=== PATIENT | male | born 1940 | race Caucasian/White ===

== ENCOUNTER → 2016-11-12 | Outpatient (CLI) | payer MEDICARE, OTHER ==
[2016-11-12 11:56] LABS: ABSOLUTE EOSINOPHILS # (AUTO) 0.2 10^3/uL (0.0-0.6); ABSOLUTE LYMPHOCYTES (AUTO) 2.3 10^3/uL (0.5-4.7); ABSOLUTE MONOCYTES (AUTO) 0.7 10^3/uL (0.1-1.4); ABSOLUTE NEUT (AUTO) 5.4 10^3/uL (1.7-8.2); BASOPHILS % (AUTO) 0.5 % (0-2); EOSINOPHILS % (AUTO) 2.2 % (0-6); HEMATOCRIT 44.8 % (37.9-51.0); HEMOGLOBIN 15.1 g/dL (13.5-17.0); HGB HCT DIFFERENCE 0.5; LYMPHOCYTES % (AUTO) 26.7 % (13-45); MEAN CORPUSCULAR HEMOGLOBIN 35.5 pg (27.0-33.4); MEAN CORPUSCULAR HGB CONC 33.6 g/dL (32.0-36.0); MEAN CORPUSCULAR VOLUME 106 fl (80-97); MONOCYTES % (AUTO) 8.3 % (3-13); RED BLOOD COUNT 4.25 10^6/uL (4.35-5.55); SEGMENTED NEUTROPHILS % (AUTO) 62.3 % (42-78); WHITE BLOOD COUNT 8.6 10^3/uL (4.0-10.5)
[2016-11-12 12:08] LABS: APPEARANCE,URINE CLEAR; BILIRUBIN,URINE NEGATIVE (NEGATIVE); GLUCOSE, URINE NEGATIVE (NEGATIVE); KETONES,URINE NEGATIVE (NEGATIVE); LEUKOCYTE ESTERASE,URINE NEGATIVE (NEGATIVE); NITRITE,URINE NEGATIVE (NEGATIVE); PROTEIN,URINE NEGATIVE (NEGATIVE); URINE SPECIFIC GRAVITY 1.008; UROBILINOGEN,URINE NEGATIVE mg/dL (<2.0)
[2016-11-12 12:20] LABS: ANION GAP 14 (5-19); BLOOD UREA NITROGEN 20 mg/dL (7-20); CALCIUM 9.4 mg/dL (8.4-10.2); CARBON DIOXIDE 29 mmol/L (22-30); CHLORIDE 98 mmol/L (98-107); CREATININE RESULT 1.01 mg/dL (0.52-1.25); GLUCOSE 105 mg/dL (75-110); POTASSIUM 4.2 mmol/L (3.6-5.0)
--- NOTE | 2016-11-12 12:45 | EKG REPORT ---
SEVERITY:- ABNORMAL ECG - ATRIAL FIBRILLATION : Confirmed by: Hal Carr MD 12-Nov-2016 12:44:46
== END ==
LOC: OD 10:53
PROVIDERS: ATTEND Orthopaedic Surgery
DX: Z01.810 Encounter for preprocedural cardiovascular examination (principal); Z01.812 Encounter for preprocedural laboratory examination; Z01.818 Encounter for other preprocedural examination
CPT/HCPCS: 36415; 71020; 80048; 81001; 85025; 93005; 93010

== ENCOUNTER 2016-12-02 09:46 | Day surgery (SDC) | payer MEDICARE, OTHER ==
[~2016-12-02 09:46] MED LIST: CEFAZOLIN 2 GM/D5W RTU 2 GM/50 ML RTUPB IV PRN; RINGERS SOLUTION,LACTATED 1,000 ML IV PRN
[2016-12-02] MEDS ORDERED: EPINEPHRINE INJ/PF 1 MG/1 ML AMPULE ONE ×2 (09:53→15:29)
[2016-12-02] MEDS ORDERED: BUPIVACAINE HCL 0.25 % INJ/PF (2.5 MG/1 ML) 30 ML VIAL ONE (09:53)
[2016-12-02 10:46] LABS: ABSOLUTE EOSINOPHILS # (AUTO) 0.2 10^3/uL (0.0-0.6); ABSOLUTE LYMPHOCYTES (AUTO) 1.9 10^3/uL (0.5-4.7); ABSOLUTE MONOCYTES (AUTO) 0.6 10^3/uL (0.1-1.4); ABSOLUTE NEUT (AUTO) 4.7 10^3/uL (1.7-8.2); BASOPHILS % (AUTO) 0.5 % (0-2); EOSINOPHILS % (AUTO) 2.5 % (0-6); HEMATOCRIT 41.9 % (37.9-51.0); HEMOGLOBIN 13.8 g/dL (13.5-17.0); HGB HCT DIFFERENCE -0.5; MEAN CORPUSCULAR HEMOGLOBIN 34.2 pg (27.0-33.4); MEAN CORPUSCULAR VOLUME 104 fl (80-97); MONOCYTES % (AUTO) 7.9 % (3-13); RED BLOOD COUNT 4.04 10^6/uL (4.35-5.55); RED CELL DISTRIBUTION WIDTH 14.2 % (11.5-14.0); SEGMENTED NEUTROPHILS % (AUTO) 63.1 % (42-78); WHITE BLOOD COUNT 7.5 10^3/uL (4.0-10.5)
[2016-12-02 11:14] LABS: POTASSIUM 3.8 mmol/L (3.6-5.0)
[2016-12-02] MEDS ORDERED: ONDANSETRON HCL INJ/PF 4 MG/2 ML SDV ONE (11:40)
[2016-12-02] MEDS ORDERED: SUCCINYLCHOLINE CHLORIDE INJ 200 MG/10 ML VIAL ONE (11:40)
[2016-12-02] MEDS ORDERED: DEXAMETHASONE SOD PHOSPHATE INJ 4 MG/1 ML VIAL ONE (11:40)
[2016-12-02] MEDS ORDERED: LIDOCAINE 2% INJ-PF (20 MG/ML) 10 ML AMPUL ONE (11:40)
[2016-12-02] MEDS ORDERED: PHENYLEPHRINE HCL INJ/PF 10 MG/1 ML SDV ONE (11:40)
[2016-12-02] MEDS ORDERED: MIDAZOLAM 2 MG/2 ML INJ ONE (14:35)
[2016-12-02] MEDS ORDERED: FENTANYL CITRATE INJ/PF 250 MCG/5 ML AMPULE ONE (14:35)
[2016-12-02] MEDS ORDERED: PROPOFOL INJ 200 MG/20 ML VIAL IV ONE (14:36)
[2016-12-02] MEDS ORDERED: ACETAMINOPHEN 100 ML IV ONE (14:36)
[2016-12-02] MEDS ORDERED: ALBUTEROL SULFATE 0.083% NEB 2.5 MG/3 ML AMPUL NEB ONE (14:40)
[2016-12-02] MEDS ORDERED: EPHEDRINE SULFATE INJ 50 MG/1 ML AMPULE ONE (15:17)
[2016-12-02] MEDS ORDERED: FENTANYL CITRATE INJ/PF 100 MCG/2 ML AMPUL IV PRN ×3 (15:46)
[2016-12-02] MEDS ORDERED: PROMETHAZINE HCL INJ 25 MG/1 ML VIAL IV PRN (15:46)
[2016-12-02] MEDS ORDERED: ONDANSETRON HCL INJ/PF 4 MG/2 ML SDV IV PRN (15:46)
[2016-12-02] MEDS ORDERED: DIPHENHYDRAMINE HCL 50 MG/ML VIAL IV PRN (15:46)
--- NOTE | 2016-12-02 17:22 | Operative Report ---
Operative Report DATE OF SURGERY: 12/02/16 PREOPERATIVE DIAGNOSIS: Right shoulder high-grade rotator cuff tear POSTOPERATIVE DIAGNOSIS: Same OPERATION: Right shoulder arthroscopic rotator cuff repair SURGEON: JAYANT PÉREZ ANESTHESIA: GA TISSUE REMOVED OR ALTERED: None COMPLICATIONS: None ESTIMATED BLOOD LOSS: 20 mL INTRAOPERATIVE FINDINGS: As above PROCEDURE: IMPLANTS: 4.75 mm swivel lock 2, fiber tape DESCRIPTION OF PROCEDURE: Patient was brought to the operating room placed in supine position. After successfully induced and intubated the patient patient was placed in the beachchair position the head and endotracheal tube was secured appropriately. The right shoulder was prepped and draped in a normal surgical fashion. A timeout was done identifying the right shoulder as the correct site. After inflating the glenohumeral joint with sterile saline solution an 11 blade was used to establish the posterior portal. The arthroscope was introduced and return of fluid was seen showing that we successfully penetrated the glenohumeral joint. With the use of spinal needle we're able to claudia the anterior portal and using an 11 blade able to establish anterior portal. A cannula was introduced through the anterior portal. At this point diagnostic scope was done. Patient had already had a operative tenotomy of his long head of the biceps tendon. There is a small stump that I proceeded to debride and resect. I used a 4.0 mm shaver and electrocautery to do this portion. I turned my attention to the rotator cuff which showed a high- grade tear. I debrided part of the with the shaver. I placed a spinal needle through the hair and felt a pulling which I then captured to my anterior portal. This allowed me to identify the tear in the subacromial space which was my plan to go next.I then redirected my scope into the subacromial space. A lateral portal was established with a 11 blade. 4.0mm shaver was introduced and was used to complete the tear and bur the bone for preparation of anchor placement. Once I was satisfied with the preparation a percutaneous incision was then just adjacent to the acromion on the lateral aspect. Through this percutaneous hole the awl was used to prepare the hole for an anchor. Tell was percutaneously screwed flushed with the bone just adjacent to the articular margin. Sutures and fiber tape were passed through the anterior portal for proper suture management. With the use of the scorpion and I proceeded to pass the sutures and fiber tape through the rotator cuff tendon. With proper suture management was able to pass the strands either through percutaneous hole or the anterior portal. Once I was satisfied with placement of all my sutures I then proceeded to do my arthroscopic knots with the sutures that were within the swivel lock. At this point the strands and the fiber tape were used to do our lateral row. Bicomposite show out was used and the lateral aspect of the humerus was then cleaned off with a shaver and electrocautery. Once identified once I was replacement I proceeded to use my awl to do my hole. This this point the sutures and fiber tape were adequately tensioned and swivel lock inserted, screwing flush with the bone thus far and securing and increasing the footprint of the rotator cuff repair. Remaining strands were cut with the arthroscopic cutter. Final pictures were taking showing my repair. At this point fluid from the shoulder was removed camera and instruments were all removed. I proceeded to close my portal sites with 3-0 nylon. Xeroform 4 x 4 dressing followed by ABDs pads and Medipore tape was applied. Patient was placed in a sling and returned to supine position where he was successfully extubated and taken to PACU in stable condition.
[2016-12-02] MEDS ORDERED: OXYCODONE-ACETAMINOPHEN 5-325 MG TABLET PO PRN ×2 (17:24)
--- NOTE | 2016-12-02 17:24 | PDOC DISCHARGE SUMMARY ---
Discharge Summary (SDC) - Discharge Final Diagnosis: Right shoulder arthroscopic rotator cuff repair Date of Surgery: 12/02/16 Discharge Date: 12/02/16 Condition: Good Treatment or Instructions: Patient is instructed to follow up in 10-14 days. Patient instructed to remove dressing in 4 days then can shower and apply Band- Aids as needed. Patient to wear sling for comfort but okay to remove for shower and pendulum exercises. Pendulum exercises are instructed to be done 3 times a day ideally with breakfast, lunch, dinners and showers. Patient instructed to call if there is any signs of redness or drainage fevers or chills. Prescriptions: Oxycodone HCl/Acetaminophen [Percocet 5-325 mg Tablet] 1 - 2 tab PO ASDIR PRN # 40 tablet PRN Reason: Discharge Diet: As Tolerated Respiratory Treatments at Home: Deep Breathing/Coughing Discharge Activity: No Lifting/Push/Pulling, Walk Frequently Home Care Assistance: None Needed Report the Following to Your Physician Immediately: Shortness of Breath, Vomiting, Increase in Pain, Fever over 101 Degrees, Unusual Bleeding, Redness, Swelling, Warmth, Increased Soreness, Drainage-Yellow, Drainage-Green, Drainage- Foul Smelling, Visual Disturbance, Seizure
[2016-12-02] MEDS ORDERED: IBUPROFEN INJ 800 MG/8 ML VIAL IV ONE (17:32)
[2016-12-02] MEDS: HYDROMORPHONE HCL INJ/PF 2 MG/ML AMPULE ONE ×2 (17:35→17:50)
[2016-12-02 19:38] VITALS: BP 113/71
== END 2016-12-02 21:33 | disposition home or self-care (01) ==
LOC: OROUT 09:46 → 5 18:15 → OROUT 21:33
PROVIDERS: ATTEND Orthopaedic Surgery
PROC: 0LM14ZZ Reattachment of Right Shoulder Tendon, Percutaneous Endoscopic Approach (ICD-10-PCS; principal; 2016-12-02 11:45)
DX: M75.111 Incomplete rotator cuff tear or rupture of right shoulder, not specified as traumatic (principal); E11.9 Type 2 diabetes mellitus without complications; E78.5 Hyperlipidemia, unspecified; E78.00 Pure hypercholesterolemia, unspecified; I10 Essential (primary) hypertension; Z79.899 Other long term (current) drug therapy; Z79.82 Long term (current) use of aspirin; Z79.84 Long term (current) use of oral hypoglycemic drugs; Z79.51 Long term (current) use of inhaled steroids
CPT/HCPCS: 86900; 86901; 36415; 86850; 82947; 84132; 85025; 29827; C1713; J2250; J1100; J3490 ×2; J0171; J3010; A9270 ×2; J1170; J2370; J0330; J2405; J2704; J0690; J0131; J1741; 1630

== ENCOUNTER → 2018-04-06 | Outpatient (CLI) | payer MEDICARE, OTHER ==
[2018-04-06 11:24] LABS: ALANINE AMINOTRANSFERASE 26 U/L (21-72); ALBUMIN 3.8 g/dL (3.5-5.0); ALKALINE PHOSPHATASE 71 U/L (38-126); ANION GAP 8 (5-19); ASPARTATE AMINO TRANSFERASE 23 U/L (17-59); BILIRUBIN,DIRECT 0.5 mg/dL (0.0-0.4); BILIRUBIN,TOTAL 0.8 mg/dL (0.2-1.3); BLOOD UREA NITROGEN 18 mg/dL (7-20); CARBON DIOXIDE 31 mmol/L (22-30); CHLORIDE 102 mmol/L (98-107); CHOLESTEROL 97.65 mg/dL (0-200); GLUCOSE 109 mg/dL (75-110); SODIUM 140.8 mmol/L (137-145); TOTAL PROTEIN 6.6 g/dL (6.3-8.2); TRIGLYCERIDES 86 mg/dL (<150); URIC ACID 8.3 mg/dL (3.5-8.5)
[2018-04-06 11:35] LABS: DIRECT LDL 32 mg/dL (<100)
[2018-04-07 15:34] LABS: PROSTATE SPECIFIC ANTIGEN 1.7 ng/mL (0.0-4.0); PSA % FREE 27.1 % (.); PSA FREE 0.46 ng/mL
== END ==
LOC: OD 09:38
PROVIDERS: ATTEND Family Medicine
DX: E11.9 Type 2 diabetes mellitus without complications (principal); E78.5 Hyperlipidemia, unspecified; E53.8 Deficiency of other specified B group vitamins; E55.9 Vitamin D deficiency, unspecified; R53.83 Other fatigue; Z12.5 Encounter for screening for malignant neoplasm of prostate
CPT/HCPCS: 36415; 80053; 80061; 82607; 83880; 84154; 84550

== ENCOUNTER → 2018-10-24 | Outpatient (CLI) | payer MEDICARE, OTHER ==
--- NOTE | 2018-10-24 08:35 | RADIOLOGY REPORT (SQ) ---
EXAM DESCRIPTION: U/S RETROPERITON LTD COMPLETED DATE/TIME: 10/24/2018 8:03 am REASON FOR STUDY: AAA (I71.4) I71.4 ABDOMINAL AORTIC ANEURYSM, WITHOUT RUPTURE M25.561 PAIN IN RIG HT KNEE COMPARISON: None. TECHNIQUE: Static and dynamic grayscale images acquired of the aorta and stored on PACs. Selected co filomena Doppler and spectral images recorded. LIMITATIONS: Portions obscured by overlying bowel gas. FINDINGS: AORTIC CALIBER MAXIMAL PROXIMAL: 2.9 cm. MID: Partially obscured. 3.0 cm. DISTAL: 2.1 cm. ILIAC DIAMETER RIGHT: Obscured by bowel gas. LEFT: Obscured by bowel gas. OTHER: No other significant finding. IMPRESSION: MILD ANEURYSMAL DILATION, MEASURING 3.0 CM. COMMENT: Aortic aneurysm imaging followup: 3.0-3.4 CM EVERY 3 YEARS *Based upon the Society for Vascular Surgery Guidelines: J Vasc Surg. 2009 Oct;50(4 Suppl):S2-49 *For aortas of maximum diameter of 2.6-2.9 cm meeting the criteria for AAA (?1.5 x proximal normal se gment) TECHNICAL DOCUMENTATION: JOB ID: [id number] [employer]- All Rights Reserved Reading location - IP/workstation name: [email or web address]
--- NOTE | 2018-10-24 17:05 | RADIOLOGY REPORT (SQ) ---
EXAM DESCRIPTION: MRI RT LOWER JOINT WITHOUT COMPLETED DATE/TIME: 10/24/2018 9:01 am REASON FOR STUDY: PAIN IN RIGHT KNEE (M25.561) I71.4 ABDOMINAL AORTIC ANEURYSM, WITHOUT RUPTURE M25 .561 PAIN IN RIGHT KNEE COMPARISON: None. TECHNIQUE: Rightknee images acquired and stored on PACS. Multiplanar images include fat sensitive s equences as T1, water sensitive sequences as FST2 or STIR, cartilage sensitive sequences as FSPD, and gradient echo sequences. LIMITATIONS: None. FINDINGS: JOINT AND BURSAE: Joint effusion. 5.3 cm popliteal cyst. BONE CORTEX AND MARROW: No alteration of signal to suggest marrow replacement. No worrisome bone lesi ons. No occult fracture. ACL: Intact. No degeneration or ganglion cyst. PCL: Intact. MCL: Intact. No periligamentous edema or fluid. LCL: Intact. No periligamentous edema or fluid. MEDIAL MENISCUS: Complex tear with a large flap tear posteriorly extending to a horizontal tear. No subluxation. LATERAL MENISCUS: Complex tear. There is a bucket-handle component with meniscus flipped anteriorly. There is also a posterior horn flap tear. MEDIAL COMPARTMENT: Cartilage preserved. No bone bruises or reactive marrow edema. No osteophytes. LATERAL COMPARTMENT: Cartilage preserved. No bone bruises or reactive marrow edema. No osteophytes. PATELLA: Cartilaginous loss most prominent lateral facet of the patella. There patellofemoral osteop hytes with subchondral cysts of the non weight-bearing surface of the lateral femoral condyles. Cart ilaginous loss of the trochlear cartilage. EXTENSOR MECHANISM: Intact. Quadriceps and patella tendons normal. SOFT TISSUES: Adjacent muscles and subcutaneous tissues normal. Normal flow void in popliteal artery and vein. OTHER: No other significant finding. IMPRESSION: Complex tear medial meniscus with a large flap tear extending to horizontal tear. Complex tear lateral meniscus with a bucket-handle component with meniscus flipped anteriorly. There is also a posterior 1 flap tear. Patellofemoral degenerative changes. Joint effusion and popliteal cyst. TECHNICAL DOCUMENTATION: JOB ID: [id number]- All Rights Reserved Reading location - IP/workstation name: [email or web address]
== END ==
LOC: RAD 06:49
PROVIDERS: ATTEND Orthopaedic Surgery
DX: M25.561 Pain in right knee (principal); I71.4 Abdominal aortic aneurysm, without rupture
CPT/HCPCS: 76775

== ENCOUNTER 2019-01-23 06:33 | Inpatient (IN) | payer MEDICARE, OTHER ==
--- NOTE | 2019-01-23 07:13 | ER Document Report ---
ED General - General Chief Complaint: Fall Stated Complaint: FALL Time Seen by Provider: 01/23/19 07:13 Notes: Patient is a 78-year-old male with atrial fibrillation, hypertension, diabetes mellitus that presents to the emergency department for chief complaint of lightheadedness, chills and dyspnea on exertion. Patient states he had a fall t his past Tuesday while he was visiting his at a long term facility, he states that that time he got lightheaded, lost his balance and fell he states he did hit his head, but denies loss of consciousness. He states he was feeling fine, he states that he bruises quite a bit, but otherwise is feeling okay, but then started getting more short of breath, having a hard time catching his breath and is felt lightheaded on and off since then and is concerned something is wrong so he came to the emergency department to be evaluated. He reports has been taking off his home medications as directed, he does not believe he is on a blood thinner. He is not entirely aware that he had atrial fibrillation. He denies having any pain at this time. Past Medical History: Atrial fibrillation, hypertension, diabetes mellitus, osteoarthritis Past Surgical History: Denies recent or pertinent surgical history Social History: Denies current tobacco, alcohol or illicit drug use. Family History: Reviewed and noncontributory for presenting illness Allergies: Reviewed, see documented allergy list. REVIEW OF SYSTEMS: Other than noted above, the 12 point review of systems was reviewed with the patient and were negative, all pertinent findings are included in the HPI. PHYSICAL EXAMINATION: Vital signs reviewed, nursing noted reviewed. GENERAL: Well-appearing, well-nourished and in no acute distress. HEAD: Periorbital ecchymosis and mild edema, around the right eye, no step-off or deformity or tenderness to palpation. EYES: extraocular movements intact, sclera anicteric, conjunctiva are normal. PERRLA, no conjunctival injection. ENT: nares patent, oropharynx clear without exudates. Moist mucous membranes. NECK: Normal range of motion, supple without lymphadenopathy LUNGS: Breath sounds clear to auscultation bilaterally and equal. No wheezes rales or rhonchi. HEART: Heart rate tachycardic, irregular rhythm ABDOMEN: Soft, nontender, normoactive bowel sounds. No rebound, guarding, or rigidity. No masses appreciated. EXTREMITIES: Nontender, good range of motion, no pitting or edema. NEUROLOGICAL: No focal neurological deficits. Moves all extremities spontan eously Motor and sensory grossly intact on exam. PSYCH: Normal mood, normal affect. SKIN: Warm, Dry, normal turgor, no rashes or lesions noted on exposed skin TRAVEL OUTSIDE OF THE [place] IN LAST 30 DAYS: No - Related Data Allergies/Adverse Reactions: No Known Drug Allergies Allergy (Verified 05/03/11 01:47) Past Medical History - Social History Smoking Status: Never Smoker Family History: Reviewed & Not Pertinent - Past Medical History Cardiac Medical History: Reports: Hx Hypertension - meds x 20 yrs Denies: Hx Coronary Artery Disease, Hx Heart Attack Pulmonary Medical History: Reports: Hx COPD - see cxr, Hx Pneumonia - 2010 Denies: Hx Asthma, Hx Bronchitis Neurological Medical History: Denies: Hx Cerebrovascular Accident, Hx Seizures Musculoskeletal Medical History: 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,gout - Immunizations Hx Diphtheria, Pertussis, Tetanus Vaccination: Yes Hx Pneumococcal Vaccination: 07/11/10 Physical Exam - Vital signs Vitals: Temp Pulse Resp BP Pulse Ox 97.4 F 111 H 20 117/79 95 01/23/19 06:51 01/23/19 06:51 01/23/19 06:51 01/23/19 06:51 01/23/19 06:51 Course - Re-evaluation Re-evalutation: Patient seen and examined vital signs reviewed. Laboratory data and imaging were ordered as appropriate for the patient's presenting symptoms and complaint, with consideration of any critical or life threatening conditions that may be associated with their obtained history and exam as noted above. Patient was treated with 2 L of IV fluids, and IV calcium gluconate, 3 g total Results were reviewed when available and demonstrated significant hypocalcemia, and an elevated lactic acid, mild leukocytosis The patient was re-evaluated and was improved, blood pressure was improving, do not feel that the patient is septic, despite having leukocytosis and elevated l actic acid, his UA was negative for signs of infection, chest x-ray negative as well. Evaluation was most consistent with dehydration, causing elevated lactic acid, possibly causing hypocalcemia as well due to malnutrition, TSH was ordered as well as free T4, as the patient's TSH was noted to be somewhat low, but not undetectable, phosphorus was normal. Results were discussed with the patient at this point after careful consideration I feel that that patient should be admitted to the hospital. This was discussed with the patient that it is in the best interest for their care to be admitted for further evaluation and management. Patient agreed with this plan of care. A call was placed to the admitting physician, Dr. Simon who graciously accepted the patient onto their service. *Note is created using voice recognition software and may contain spelling, syntax or grammatical errors. Laboratory 01/23/19 01/23/19 01/23/19 07:59 07:59 07:59 WBC 13.7 H RBC 3.98 L Hgb 13.9 Hct 41.2 MCV 103 H MCH 34.9 H MCHC 33.8 RDW 15.3 H Plt Count 133 L Seg Neutrophils % 86.1 H Lymphocytes % 7.3 L Monocytes % 6.1 Eosinophils % 0.4 Basophils % 0.1 Absolute Neutrophils 11.8 H Absolute Lymphocytes 1.0 Absolute Monocytes 0.8 Absolute Eosinophils 0.1 Absolute Basophils 0.0 PT 16.9 H INR 1.36 VBG pH VBG pCO2 VBG HCO3 VBG Base Excess Sodium 138.1 Potassium 3.6 Chloride 93 L Carbon Dioxide 32 H Anion Gap 13 BUN 20 Creatinine 1.46 H Est GFR ( Amer) 56 L Est GFR (Non-Af Amer) 46 L Glucose 104 POC Glucose Lactic Acid Calcium 6.1 L* Phosphorus Total Bilirubin 1.5 H Direct Bilirubin 0.3 Neonat Total Bilirubin Not Reportable Neonat Direct Bilirubin Not Reportable Neonat Indirect Bili Not Reportable AST 244 H ALT 72 Alkaline Phosphatase 67 Troponin I Total Protein 6.4 Albumin 3.8 TSH Free T4 Free T3 pg/mL PTH Intact Urine Color Urine Appearance Urine pH Ur Specific Boles Urine Protein Urine Glucose (UA) Urine Ketones Urine Blood Urine Nitrite Urine Bilirubin Urine Urobilinogen Ur Leukocyte Esterase Urine WBC (Auto) Urine RBC (Auto) U Hyaline Cast (Auto) Squamous Epi Cells Auto Urine Mucus (Auto) Urine Ascorbic Acid 01/23/19 01/23/19 01/23/19 07:59 07:59 07:59 WBC RBC Hgb Hct MCV MCH MCHC RDW Plt Count Seg Neutrophils % Lymphocytes % Monocytes % Eosinophils % Basophils % Absolute Neutrophils Absolute Lymphocytes Absolute Monocytes Absolute Eosinophils Absolute Basophils PT INR VBG pH 7.43 H VBG pCO2 45.7 VBG HCO3 29.4 VBG Base Excess 4.3 Sodium Potassium Chloride Carbon Dioxide Anion Gap BUN Creatinine Est GFR ( Amer) Est GFR (Non-Af Amer) Glucose POC Glucose Lactic Acid 4.3 H Calcium Phosphorus Total Bilirubin Direct Bilirubin Neonat Total Bilirubin Neonat Direct Bilirubin Neonat Indirect Bili AST ALT Alkaline Phosphatase Troponin I < 0.012 Total Protein Albumin TSH Free T4 Free T3 pg/mL PTH Intact Urine Color Urine Appearance Urine pH Ur Specific Boles Urine Protein Urine Glucose (UA) Urine Ketones Urine Blood Urine Nitrite Urine Bilirubin Urine Urobilinogen Ur Leukocyte Esterase Urine WBC (Auto) Urine RBC (Auto) U Hyaline Cast (Auto) Squamous Epi Cells Auto Urine Mucus (Auto) Urine Ascorbic Acid 01/23/19 01/23/19 01/23/19 07:59 07:59 07:59 WBC RBC Hgb Hct MCV MCH MCHC RDW Plt Count Seg Neutrophils % Lymphocytes % Monocytes % Eosinophils % Basophils % Absolute Neutrophils Absolute Lymphocytes Absolute Monocytes Absolute Eosinophils Absolute Basophils PT INR VBG pH VBG pCO2 VBG HCO3 VBG Base Excess Sodium Potassium Chloride Carbon Dioxide Anion Gap BUN Creatinine Est GFR ( Amer) Est GFR (Non-Af Amer) Glucose POC Glucose Lactic Acid Calcium Phosphorus 3.8 Total Bilirubin Direct Bilirubin Neonat Total Bilirubin Neonat Direct Bilirubin Neonat Indirect Bili AST ALT Alkaline Phosphatase Troponin I Total Protein Albumin TSH 0.28 L Free T4 1.61 Free T3 pg/mL 3.49 PTH Intact Urine Color Urine Appearance Urine pH Ur Specific Boles Urine Protein Urine Glucose (UA) Urine Ketones Urine Blood Urine Nitrite Urine Bilirubin Urine Urobilinogen Ur Leukocyte Esterase Urine WBC (Auto) Urine RBC (Auto) U Hyaline Cast (Auto) Squamous Epi Cells Auto Urine Mucus (Auto) Urine Ascorbic Acid 01/23/19 01/23/19 01/23/19 08:13 08:47 09:22 WBC RBC Hgb Hct MCV MCH MCHC RDW Plt Count Seg Neutrophils % Lymphocytes % Monocytes % Eosinophils % Basophils % Absolute Neutrophils Absolute Lymphocytes Absolute Monocytes Absolute Eosinophils Absolute Basophils PT INR VBG pH VBG pCO2 VBG HCO3 VBG Base Excess Sodium Potassium Chloride Carbon Dioxide Anion Gap BUN Creatinine Est GFR ( Amer) Est GFR (Non-Af Amer) Glucose POC Glucose 105 Lactic Acid Calcium Phosphorus Total Bilirubin Direct Bilirubin Neonat Total Bilirubin Neonat Direct Bilirubin Neonat Indirect Bili AST ALT Alkaline Phosphatase Troponin I Total Protein Albumin TSH Free T4 Free T3 pg/mL PTH Intact 12.3 Urine Color YELLOW Urine Appearance SLIGHTLY-CLOUDY Urine pH 5.0 Ur Specific Boles 1.018 Urine Protein 30 H Urine Glucose (UA) NEGATIVE Urine Ketones TRACE H Urine Blood LARGE H Urine Nitrite NEGATIVE Urine Bilirubin NEGATIVE Urine Urobilinogen NEGATIVE Ur Leukocyte Esterase NEGATIVE Urine WBC (Auto) 6 Urine RBC (Auto) 2 U Hyaline Cast (Auto) 25 Squamous Epi Cells Auto 1 Urine Mucus (Auto) RARE Urine Ascorbic Acid NEGATIVE Chest X-Ray 01/23/19 07:22 IMPRESSION: Emphysematous change without evidence of acute cardiopulmonary process. - Vital Signs Vital signs: Temp Pulse Resp BP Pulse Ox 97.4 F 111 H 17 85/64 L 97 01/23/19 06:51 01/23/19 06:51 01/23/19 08:18 01/23/19 08:18 01/23/19 08:18 - Laboratory Result Diagrams: 01/23/19 07:59 01/23/19 07:59 Laboratory results interpreted by me: 01/23/19 01/23/19 01/23/19 07:59 07:59 07:59 WBC 13.7 H RBC 3.98 L MCV 103 H MCH 34.9 H RDW 15.3 H Plt Count 133 L Seg Neutrophils % 86.1 H Lymphocytes % 7.3 L Absolute Neutrophils 11.8 H PT 16.9 H VBG pH Chloride 93 L Carbon Dioxide 32 H Creatinine 1.46 H Est GFR ( Amer) 56 L Est GFR (Non-Af Amer) 46 L Lactic Acid Calcium 6.1 L* Total Bilirubin 1.5 H AST 244 H TSH Urine Protein Urine Ketones Urine Blood 01/23/19 01/23/19 01/23/19 07:59 07:59 07:59 WBC RBC MCV MCH RDW Plt Count Seg Neutrophils % Lymphocytes % Absolute Neutrophils PT VBG pH 7.43 H Chloride Carbon Dioxide Creatinine Est GFR ( Amer) Est GFR (Non-Af Amer) Lactic Acid 4.3 H Calcium Total Bilirubin AST TSH 0.28 L Urine Protein Urine Ketones Urine Blood 01/23/19 08:13 WBC RBC MCV MCH RDW Plt Count Seg Neutrophils % Lymphocytes % Absolute Neutrophils PT VBG pH Chloride Carbon Dioxide Creatinine Est GFR ( Amer) Est GFR (Non-Af Amer) Lactic Acid Calcium Total Bilirubin AST TSH Urine Protein 30 H Urine Ketones TRACE H Urine Blood LARGE H - EKG Interpretation by Me Additional EKG results interpreted by me: EKG demonstrates atrial fibrillation with a ventricular rate of 118 bpm, left axis deviation, QTC 477 ms, no evidence of acute ischemia in this EKG, compared to prior EKG from 11/12/2016, at that time patient is in atrial fibrillation with controlled rate. Critical Care Note - Critical Care Note Total time excluding time spent on procedures (mins): 35 Comments: Critical care time 35 minutes exclusive from separate billable procedures for a patient requiring complex medical decision making, and high potential for clinical deterioration. In a patient with severe hypocalcemia, which could result in cardiac dysrhythmias, and high potential for deterioration, and treatment with IV calcium. Time spent obtaining history from patient or surrogate, discussions with consultants, development of treatment plan with patient or surrogate, evaluation of patient's response to treatment, examination of patient, ordering and performing treatments and interventions, ordering and review of laboratory studies, re-evaluation of patient's condition, ordering and review of radiographic studies and review of old charts Discharge - Discharge Clinical Impression: Hypocalcemia, Dehydration, Atrial fibrillation with RVR Hypotension Qualifiers: Hypotension type: unspecified hypotension type Qualified Code(s): I95.9 - Hypotension, unspecified Condition: Stable Disposition: ADMITTED INPATIENT Admitting Provider: [facility] (Hospitalist) Unit Admitted: Telemetry
[2019-01-23] MEDS ORDERED: NORMAL SALINE 1000 ML 1,000 ML IV ONE (07:22)
[2019-01-23 08:12] LABS: ABSOLUTE EOSINOPHILS # (AUTO) 0.1 10^3/uL (0.0-0.6); ABSOLUTE MONOCYTES (AUTO) 0.8 10^3/uL (0.1-1.4); ABSOLUTE NEUT (AUTO) 11.8 10^3/uL (1.7-8.2); BASOPHILS % (AUTO) 0.1 % (0-2); EOSINOPHILS % (AUTO) 0.4 % (0-6); HEMATOCRIT 41.2 % (37.9-51.0); HEMOGLOBIN 13.9 g/dL (13.5-17.0); LYMPHOCYTES % (AUTO) 7.3 % (13-45); MEAN CORPUSCULAR HEMOGLOBIN 34.9 pg (27.0-33.4); MEAN CORPUSCULAR HGB CONC 33.8 g/dL (32.0-36.0); MEAN CORPUSCULAR VOLUME 103 fl (80-97); MONOCYTES % (AUTO) 6.1 % (3-13); PLATELET COUNT 133 10^3/uL (150-450); RED BLOOD COUNT 3.98 10^6/uL (4.35-5.55); RED CELL DISTRIBUTION WIDTH 15.3 % (11.5-14.0); SEGMENTED NEUTROPHILS % (AUTO) 86.1 % (42-78); TOTAL CELLS COUNTED % (AUTO) 100 %; WHITE BLOOD COUNT 13.7 10^3/uL (4.0-10.5)
--- NOTE | 2019-01-23 08:18 | RADIOLOGY REPORT (SQ) ---
EXAM DESCRIPTION: CHEST SINGLE VIEW COMPLETED DATE/TIME: 01/23/2019 7:48 am REASON FOR STUDY: weakness COMPARISON: 11/14/2015 EXAM PARAMETERS: NUMBER OF VIEWS: One view. TECHNIQUE: Single frontal radiographic view of the chest acquired. RADIATION DOSE: NA LIMITATIONS: None. FINDINGS: LUNGS AND PLEURA: Emphysematous change. No opacities, masses or pneumothorax. No pleural effusion. MEDIASTINUM AND HILAR STRUCTURES: No masses. Contour normal. HEART AND VASCULAR STRUCTURES: Heart normal in size. Aortic atherosclerosis. BONES: No acute findings. HARDWARE: None in the chest. OTHER: No other significant finding. IMPRESSION: Emphysematous change without evidence of acute cardiopulmonary process. TECHNICAL DOCUMENTATION: JOB ID: [id number] [employer] All Rights Reserved Reading location - IP/workstation name: [email or web address]
[2019-01-23 08:19] LABS: INTERNATIONAL RATION (INR) 1.36; PROTHROMBIN TIME 16.9 SEC (11.4-15.4); VENOUS BLOOD BASE EXCESS 4.3 mmol/L; VENOUS BLOOD HCO3 29.4 mmol/L (20-32); VENOUS BLOOD PCO2 45.7 mmHg (35-63); VENOUS BLOOD PH 7.43 (7.30-7.42)
[2019-01-23 08:37] LABS: APPEARANCE,URINE SLIGHTLY-CLOUDY; BILIRUBIN,URINE NEGATIVE (NEGATIVE); GLUCOSE, URINE NEGATIVE (NEGATIVE); KETONES,URINE TRACE mg/dL (NEGATIVE); LEUKOCYTE ESTERASE,URINE NEGATIVE (NEGATIVE); NITRITE,URINE NEGATIVE (NEGATIVE); PROTEIN,URINE 30 mg/dL (NEGATIVE); URINE SPECIFIC GRAVITY 1.018; UROBILINOGEN,URINE NEGATIVE mg/dL (<2.0)
[2019-01-23 08:38] LABS: COLOR,URINE YELLOW
[2019-01-23 08:38] LABS: ALANINE AMINOTRANSFERASE 72 U/L (21-72); ALBUMIN 3.8 g/dL (3.5-5.0); ALKALINE PHOSPHATASE 67 U/L (38-126); ANION GAP 13 (5-19); ASPARTATE AMINO TRANSFERASE 244 U/L (17-59); BILIRUBIN,DIRECT 0.3 mg/dL (0.0-0.4); BILIRUBIN,TOTAL 1.5 mg/dL (0.2-1.3); BLOOD UREA NITROGEN 20 mg/dL (7-20); CARBON DIOXIDE 32 mmol/L (22-30); CHLORIDE 93 mmol/L (98-107); GLUCOSE 104 mg/dL (75-110); POTASSIUM 3.6 mmol/L (3.6-5.0); SODIUM 138.1 mmol/L (137-145); TOTAL PROTEIN 6.4 g/dL (6.3-8.2)
[2019-01-23] MEDS ORDERED: RINGERS SOLUTION,LACTATED 1,000 ML IV ONE (08:41)
[2019-01-23 08:49] LABS: CALCIUM 6.1 mg/dL (8.4-10.2)
[2019-01-23] MEDS ORDERED: CALCIUM GLUCONATE 1000 MG/10 ML INJ IV ONE (08:52)
[2019-01-23 10:47] LABS: FREE T3 3.49 pg/mL (2.77-5.27); FREE T4 (FREE THYROXINE) 1.61 ng/dL (0.78-2.19)
[2019-01-23] MEDS ORDERED: TEMAZEPAM 7.5 MG CAPSULE PO PRN (10:47)
[2019-01-23] MEDS ORDERED: MAG HYDROX/AL HYDROX/SIMETH SUSP 30 ML UDCUP PO PRN (10:47)
[2019-01-23] MEDS ORDERED: ACETAMINOPHEN 325 MG TABLET PO PRN (10:47)
[2019-01-23] MEDS ORDERED: DEXTROSE 50%-WATER 25 GM/50 ML DISP.SYRIN IV PRN ×2 (11:09)
[2019-01-23] MEDS ORDERED: GLUCAGON,HUMAN RECOMB 1 MG INJ IM PRN (11:09)
[2019-01-23] MEDS ORDERED: DEXTROSE 40% GEL 15 GM TUBE PO PRN ×2 (11:09)
[2019-01-23] MEDS: PANTOPRAZOLE SODIUM 40 MG TABLET.DR PO SCH (12:12)
[2019-01-23 15:10] LABS: ALBUMIN 3.4 g/dL (3.5-5.0); ANION GAP 10 (5-19); BLOOD UREA NITROGEN 19 mg/dL (7-20); CARBON DIOXIDE 32 mmol/L (22-30); CHLORIDE 95 mmol/L (98-107); GLUCOSE 113 mg/dL (75-110); PHOSPHORUS 3.6 mg/dL (2.5-4.5); POTASSIUM 3.7 mmol/L (3.6-5.0); SODIUM 136.7 mmol/L (137-145)
[2019-01-23 15:27] LABS: CALCIUM 6.3 mg/dL (8.4-10.2)
[2019-01-23] MEDS: INSULIN REG, HUMAN 100 UNIT/ML 3 ML VIAL (PYX) SUBCUT SCH (16:18)
[2019-01-23] MEDS ORDERED: CALCIUM GLUCONATE 2,222 MG in DEXTROSE 5%-WATER 100 ML IV ONE (17:00)
[2019-01-23] MEDS ORDERED: MAGNESIUM SULFATE 4 GM/100 ML RTUPB IV ONE (17:30)
--- NOTE | 2019-01-23 18:19 | PDOC H&P ---
History of Present Illness Admission Date/PCP: 01/23/19 10:17 SYED LOBATO MD Patient complains of: Not eating and drinking well at home. He has had multiple falls. He fell and hit his head on a wall this morning. Knees, elbows and shoulders all hurt. History of Present Illness: TOMI BOX is a 78 year old male who is well-known to this provider. I have been seeing the patient at the bedside as his has been hospitalized multiple times and is currently in the hospital. Patient states that while she is in the hospital he does not eat much or drink much. He continues his daily medicines which include an BETO inhibitor and diuretic. He has been reporting significant lightheadedness with position change as well as multiple falls. He has an abrasion on his forehead as well as contusions around the eye. There is a small skin tear on the left elbow. He has multiple bruises. Upon evaluation emergency department he is noted to be hypocalcemic with an elevated serum creatinine. He was referred to the hospitalist service for admission for telemetry monitoring, IV fluids and electrolyte replacement. Past Medical History Cardiac Medical History: Reports: Hypertension - meds x 20 yrs Denies: Coronary Artery Disease, Myocardial Infarction Pulmonary Medical History: Reports: Chronic Obstructive Pulmonary Disease (COPD) - see cxr, Pneumonia - 2010 Denies: Asthma, Bronchitis EENT Medical History: Reports: Other - Wears glasses Denies: Cataracts, Ears, Nose, Throat Neurological Medical History: Denies: Hemorrhagic CVA, Ischemic CVA, Seizures Endocrine Medical History: Reports: Diabetes Mellitus Type 2 Renal/ Medical History: Denies: Chronic Kidney Disease, End Stage Renal Disease Malignancy Medical History: Reports: None GI Medical History: Denies: Cirrhosis, Diverticulitis, Hiatal Hernia, Peptic Ulcer Disease Musculoskeltal Medical History: Reports: Arthritis - shoulder,gout, Other - Sciatica, fractured patella Skin Medical History: Reports: Other - Easy bruising Psychiatric Medical History: Denies: Bipolar Disorder, Depression, General Anxiety Disorder Traumatic Medical History: Reports: None Hematology: Denies: Anemia - Patient is not sure about the history of, Bleeding Tendencies, Heparin Induced Thrombocytopenia Infectious Medical History: Reports: None Past Surgical History Past Surgical History: Reports: Appendectomy, Cholecystectomy Social History Information Source: Patient Lives with: Family - Patient lives with his Smoking Status: Former Smoker - Stopped 15 years ago Frequency of Alcohol Use: Heavy - Patient takes 1 shot of alcohol daily. No more in the less Hx Recreational Drug Use: No Hx Prescription Drug Abuse: No - Advance Directive Resuscitation Status: Do Not Resuscitate Surrogate healthcare decision maker:: Patient does have a living well. It is currently at the document review attorney's office. Family History Family History: Reviewed & Not Pertinent, Malignancy Parental Family History Reviewed: Yes - Mother rheumatoid arthritis Father lung cancer Children Family History Reviewed: Yes Sibling(s) Family History Reviewed.: Yes - Sister with sciatica Medication/Allergy Home Medications: Allopurinol [Zyloprim 100 mg Tablet] 100 mg PO DAILY 05/08/11 Hydrochlorothiazide [Hydrodiuril 25 mg Tablet] 25 mg PO QAM 05/08/11 Simvastatin [Zocor 40 mg Tablet] 40 mg PO QHS 05/08/11 Cetirizine HCl [Zyrtec 10 mg Tablet] 10 mg PO DAILY 10/23/15 Aspirin [Gena Advanced] 500 mg PO DAILYP PRN 01/23/19 Aspirin [Ecotrin 81 mg EC Tablet] 81 mg PO DAILY 01/23/19 Atenolol [Tenormin 50 mg Tablet] 50 mg PO DAILY 01/23/19 Atorvastatin Calcium [Lipitor 40 mg Tablet] 40 mg PO QHS 01/23/19 Calcium Carbonate/Vitamin D3 [Os-Lyle 500+D Tablet] 1 tab PO BID 01/23/19 Ferrous Sulfate [Feosol 325 mg Tablet] 325 mg PO DAILY 01/23/19 Lisinopril [Prinivil 10 mg Tablet] 20 mg PO Q12 01/23/19 Multivitamin [Tab-A-Treasure (Multiple Vitamin) Tablet] 1 tab PO DAILY 01/23/19 Naproxen [Naprosyn] 500 mg PO Q12 01/23/19 Oxycodone HCl/Acetaminophen [Percocet 10-325 Mg Tablet] 1 each PO QHS 01/23/19 Potassium Chloride [Klor-Con 10 Meq Capsule ER] 10 meq PO BID 01/23/19 Sitagliptin Phosphate [Januvia 50 mg Tablet] 50 mg PO DAILY 01/23/19 Allergies/Adverse Reactions: No Known Drug Allergies Allergy (Verified 05/03/11 01:47) Review of Systems Constitutional: PRESENT: anorexia, fatigue. ABSENT: fever(s), weight gain, weight loss Eyes: ABSENT: visual disturbances Ears: ABSENT: hearing changes Nose, Mouth, and Throat: PRESENT: headache(s) - Hit his head on the wall. ABSENT: mouth pain, sore throat Cardiovascular: PRESENT: dyspnea on exertion - Short of breath with limited exertion. ABSENT: chest pain, edema, palpitations Respiratory: ABSENT: cough Gastrointestinal: PRESENT: diarrhea - Reports watery dark stool, nausea, vomiting. ABSENT: abdominal pain, heartburn, hematochezia Genitourinary: ABSENT: difficulty urinating, dysuria, hematuria Musculoskeletal: PRESENT: back pain - Chronic sciatica, other - Knees, shoulders and elbow as well as hands from recent falls Integumentary: PRESENT: other - Skin tear left elbow.. ABSENT: diaphoresis, erythema, rash Neurological: PRESENT: frequent falls - Over the last several days, tremor(s). ABSENT: syncope Psychiatric: ABSENT: anxiety, depression, hallucinations Endocrine: ABSENT: cold intolerance, heat intolerance, polydipsia, polyphagia, polyuria Hematologic/Lymphatic: PRESENT: easy bruising Allergic/Immunologic: ABSENT: seasonal rhinorrhea Physical Exam Vital Signs: Temp Pulse Resp BP Pulse Ox 97.4 F 111 H 17 85/64 L 97 01/23/19 06:51 01/23/19 06:51 01/23/19 08:18 01/23/19 08:18 01/23/19 08:18 Intake & Output 01/22/19 01/23/19 01/24/19 06:59 06:59 06:59 Intake Total 1999 Balance 1999 Weight 107.1 kg General appearance: PRESENT: cooperative, mild distress - From joint pain, well- developed Head exam: PRESENT: other - Abrasion on the left side of the forehead. Right eye with multiple contusions. Eye exam: PRESENT: conjunctiva pink, EOMI. ABSENT: conjunctival injection, scleral icterus Ear exam: PRESENT: normal external ear exam Mouth exam: PRESENT: dry mucosa, tongue midline Teeth exam: ABSENT: dental tenderness, edentulous Neck exam: ABSENT: carotid bruit, JVD, lymphadenopathy, tracheostomy Respiratory exam: PRESENT: clear to auscultation jae, symmetrical, unlabored. ABSENT: rales, rhonchi, tachypnea, wheezes Cardiovascular exam: PRESENT: RRR, +S1, +S2, systolic murmur - 2/6 GI/Abdominal exam: PRESENT: normal bowel sounds, soft. ABSENT: distended, guarding, tenderness Rectal exam: PRESENT: deferred Extremities exam: PRESENT: full ROM - Limited due to joint pain from falls. ABSENT: calf tenderness, pedal edema Neurological exam: PRESENT: alert, awake, oriented to person, oriented to place, oriented to time, oriented to situation, CN II-XII grossly intact Psychiatric exam: PRESENT: appropriate affect. ABSENT: agitated, anxious, depressed Focused psych exam: ABSENT: delusional, restlessness Skin exam: PRESENT: abrasion - Right side of the forehead, other - Multiple b ruises upper extremities as well as the right eye. ABSENT: jaundice Results Laboratory Results: 01/23/19 07:59 01/23/19 07:59 01/23/19 01/23/19 01/23/19 07:59 07:59 07:59 WBC 13.7 H RBC 3.98 L Hgb 13.9 Hct 41.2 MCV 103 H MCH 34.9 H MCHC 33.8 RDW 15.3 H Plt Count 133 L Seg Neutrophils % 86.1 H Lymphocytes % 7.3 L Monocytes % 6.1 Eosinophils % 0.4 Basophils % 0.1 Absolute Neutrophils 11.8 H Absolute Lymphocytes 1.0 Absolute Monocytes 0.8 Absolute Eosinophils 0.1 Absolute Basophils 0.0 VBG pH VBG pCO2 VBG HCO3 VBG Base Excess Sodium 138.1 Potassium 3.6 Chloride 93 L Carbon Dioxide 32 H Anion Gap 13 BUN 20 Creatinine 1.46 H Est GFR ( Amer) 56 L Est GFR (Non-Af Amer) 46 L Glucose 104 Lactic Acid 4.3 H Calcium 6.1 L* Phosphorus Total Bilirubin 1.5 H AST 244 H ALT 72 Alkaline Phosphatase 67 Total Protein 6.4 Albumin 3.8 TSH Free T4 Free T3 pg/mL PTH Intact Urine Color Urine Appearance Urine pH Ur Specific [place] Urine Protein Urine Glucose (UA) Urine Ketones Urine Blood Urine Nitrite Ur Leukocyte Esterase Urine WBC (Auto) Urine RBC (Auto) 01/23/19 01/23/19 01/23/19 07:59 07:59 07:59 WBC RBC Hgb Hct MCV MCH MCHC RDW Plt Count Seg Neutrophils % Lymphocytes % Monocytes % Eosinophils % Basophils % Absolute Neutrophils Absolute Lymphocytes Absolute Monocytes Absolute Eosinophils Absolute Basophils VBG pH 7.43 H VBG pCO2 45.7 VBG HCO3 29.4 VBG Base Excess 4.3 Sodium Potassium Chloride Carbon Dioxide Anion Gap BUN Creatinine Est GFR ( Amer) Est GFR (Non-Af Amer) Glucose Lactic Acid Calcium Phosphorus 3.8 Total Bilirubin AST ALT Alkaline Phosphatase Total Protein Albumin TSH 0.28 L Free T4 Free T3 pg/mL PTH Intact Urine Color Urine Appearance Urine pH Ur Specific [place] Urine Protein Urine Glucose (UA) Urine Ketones Urine Blood Urine Nitrite Ur Leukocyte Esterase Urine WBC (Auto) Urine RBC (Auto) 01/23/19 01/23/19 01/23/19 07:59 08:13 09:22 WBC RBC Hgb Hct MCV MCH MCHC RDW Plt Count Seg Neutrophils % Lymphocytes % Monocytes % Eosinophils % Basophils % Absolute Neutrophils Absolute Lymphocytes Absolute Monocytes Absolute Eosinophils Absolute Basophils VBG pH VBG pCO2 VBG HCO3 VBG Base Excess Sodium Potassium Chloride Carbon Dioxide Anion Gap BUN Creatinine Est GFR ( Amer) Est GFR (Non-Af Amer) Glucose Lactic Acid Calcium Phosphorus Total Bilirubin AST ALT Alkaline Phosphatase Total Protein Albumin TSH Free T4 1.61 Free T3 pg/mL 3.49 PTH Intact 12.3 Urine Color YELLOW Urine Appearance SLIGHTLY-CLOUDY Urine pH 5.0 Ur Specific [place] 1.018 Urine Protein 30 H Urine Glucose (UA) NEGATIVE Urine Ketones TRACE H Urine Blood LARGE H Urine Nitrite NEGATIVE Ur Leukocyte Esterase NEGATIVE Urine WBC (Auto) 6 Urine RBC (Auto) 2 01/23/19 07:59 Troponin I < 0.012 Impressions: Chest X-Ray 01/23/19 07:22 IMPRESSION: Emphysematous change without evidence of acute cardiopulmonary process. Assessment and Plan - Diagnosis (1) Hypocalcemia Is this a current diagnosis for this admission?: Yes Plan: 01/23/2019-the patient has not been eating well at all. His has been hospitalized multiple times and [facility] He tends not to eat when he is home. He does take calcium and vitamin D twice a day but it may not be absorbed all that well. In addition he has profound hypomagnesemia. I believe this is contributing to his prolonged QT. His albumin is not terribly low and so there is no significant correction for hypoalbuminemia. He is receiving IV calcium gluconate. His ionized calcium is low. Laboratory studies are ordered for later tonight and the morning. His magnesium will be repleted as well. (2) Hypomagnesemia Is this a current diagnosis for this admission?: Yes Plan: 01/23/2019-the patient has profound hypomagnesemia with hypocalcemia. His diet has been terrible for some time. I do not think he has had a full meal over the last 2 to 3 days. I think he has become dehydrated as well. I have ordered 4 g of magnesium sulfate IV and will recheck his labs tonight and tomorrow. (3) Dehydration Is this a current diagnosis for this admission?: Yes Plan: 01/23/2019-as noted above he has not been eating and drinking all that well. I believe his tachycardia and hypertension are directly related to hypovolemia. He also has a history of atrial fibrillation and therefore is prone to rapid ventricular response especially under the circumstances. He will receive ongoing IV fluids and monitor electrolytes as noted above. (4) Hypotension Qualifiers: Hypotension type: unspecified hypotension type Qualified Code(s): I95.9 - Hypotension, unspecified Is this a current diagnosis for this admission?: Yes Plan: 01/23/2019-normally the patient takes lisinopril and hydrochlorothiazide (as well as potassium) but is volume depleted. I have put parameters on his medications and have asked that he not take his hydrochlorthiazide until tomorrow. With several boluses of IV fluids in the emergency department he has already seen a significant improvement. (5) Atrial fibrillation with RVR Is this a current diagnosis for this admission?: Yes Plan: 01/23/2019-the patient does have a history of A. fib with RVR. Due to his recent falls and all contusions I am not starting him on oral anticoagulation. He will be on DVT prophylaxis only. With fluids his heart rate is coming down. We will monitor closely and if necessary start a beta-emeka. (6) Hypercholesterolemia Is this a current diagnosis for this admission?: Yes Plan: 01/23/2019-for some reason the patient is on atorvastatin and simvastatin. I will continue his atorvastatin. Tomorrow we will discuss the need to utilize one medication or the other but not both. (7) Knee pain, bilateral Qualifiers: Chronicity: acute Qualified Code(s): M25.561 - Pain in right knee; M25.562 - Pain in left knee Is this a current diagnosis for this admission?: Yes Plan: The patient has a history of a patella fracture but with his recent falls his knee pain has increased. I have ordered plain films to make sure that he did not sustain another fracture with his falls. He normally takes naproxen daily as well as acetaminophen. We discussed the concerns about anti-inflammatories with underlying hypertension but he has been doing this for a long time. He also takes a Percocet 04/12/2025 every night. Await results of the x-rays. If needed will consult orthopedics. - Time Time Spent with patient: 35 or more minutes Medications reviewed and adjusted accordingly: Yes Anticipated discharge: Home Within: within 48 hours - Plan Summary Plan Summary: As above. The patient's is currently an inpatient at this facility as well. He expresses concern because there are pets at home and he has no one to care for them. We will try and expedite his recovery for discharge tomorrow.
[2019-01-23] MEDS: OXYCODONE-ACETAMINOPHEN 5-325 MG TABLET PO PRN (18:40)
[2019-01-23] MEDS: POTASSIUM CHLORIDE 10 MEQ CAPSULE.ER PO SCH (18:40)
[2019-01-23] MEDS: CALCIUM CARBONATE 250 MG/VITAMIN D3 125 UNIT TABLET PO SCH (18:41)
[2019-01-23] MEDS: BACITRACIN ZINC OINTMENT 15 GM TP SCH (18:42)
--- NOTE | 2019-01-23 19:07 | EKG REPORT ---
SEVERITY:- ABNORMAL ECG - ATRIAL FIBRILLATION, V-RATE 94-136 BORDERLINE PROLONGED QT INTERVAL : Confirmed by: Hal Carr MD 23-Jan-2019 19:05:55
[2019-01-23 19:50] LABS: ANION GAP 13 (5-19); BLOOD UREA NITROGEN 20 mg/dL (7-20); CARBON DIOXIDE 29 mmol/L (22-30); CHLORIDE 96 mmol/L (98-107); GLUCOSE 110 mg/dL (75-110); POTASSIUM 4.3 mmol/L (3.6-5.0); SODIUM 137.6 mmol/L (137-145)
[2019-01-23] MEDS ORDERED: OXYCODONE-ACETAMINOPHEN 5-325 MG TABLET PO SCH (22:00)
[2019-01-23] MEDS ORDERED: OXYCODONE HCL IR 5 MG TABLET PO SCH (22:00)
[2019-01-23] MEDS ORDERED: (PENDING PHARMACY ID) (Oxycodone Hcl/Acetaminophen [Percocet 10-325 Mg Tablet] 1 EACH) PO SCH (22:00)
[2019-01-23] MEDS ORDERED: LISINOPRIL 10 MG TABLET PO SCH (22:00)
[2019-01-24] MEDS: OXYCODONE HCL IR 5 MG TABLET PO PRN (00:14)
[2019-01-24] MEDS: OXYCODONE-ACETAMINOPHEN 5-325 MG TABLET PO PRN ×3 (00:16→18:06)
[2019-01-24] MEDS: NORMAL SALINE 1000 ML 1,000 ML IV PRN ×4 (00:24→20:10)
[2019-01-24] MEDS: ATORVASTATIN CALCIUM 40 MG TABLET PO SCH ×2 (00:24→21:30)
[2019-01-24] MEDS: INSULIN REG, HUMAN 100 UNIT/ML 3 ML VIAL (PYX) SUBCUT SCH ×5 (00:52→21:24)
[2019-01-24 05:17] LABS: ABSOLUTE EOSINOPHILS # (AUTO) 0.2 10^3/uL (0.0-0.6); ABSOLUTE LYMPHOCYTES (AUTO) 2.2 10^3/uL (0.5-4.7); ABSOLUTE MONOCYTES (AUTO) 0.6 10^3/uL (0.1-1.4); ABSOLUTE NEUT (AUTO) 8.4 10^3/uL (1.7-8.2); BASOPHILS % (AUTO) 0.3 % (0-2); EOSINOPHILS % (AUTO) 1.8 % (0-6); HEMATOCRIT 35.8 % (37.9-51.0); HEMOGLOBIN 12.1 g/dL (13.5-17.0); LYMPHOCYTES % (AUTO) 19.1 % (13-45); MEAN CORPUSCULAR HEMOGLOBIN 35.1 pg (27.0-33.4); MEAN CORPUSCULAR HGB CONC 33.9 g/dL (32.0-36.0); MEAN CORPUSCULAR VOLUME 103 fl (80-97); MONOCYTES % (AUTO) 5.5 % (3-13); RED BLOOD COUNT 3.46 10^6/uL (4.35-5.55); RED CELL DISTRIBUTION WIDTH 15.3 % (11.5-14.0); SEGMENTED NEUTROPHILS % (AUTO) 73.3 % (42-78); TOTAL CELLS COUNTED % (AUTO) 100 %; WHITE BLOOD COUNT 11.5 10^3/uL (4.0-10.5)
[2019-01-24 05:32] LABS: ALBUMIN 2.9 g/dL (3.5-5.0); ANION GAP 8 (5-19); BLOOD UREA NITROGEN 20 mg/dL (7-20); CARBON DIOXIDE 31 mmol/L (22-30); CHLORIDE 98 mmol/L (98-107); GLUCOSE 91 mg/dL (75-110); PHOSPHORUS 3.2 mg/dL (2.5-4.5); SODIUM 137.4 mmol/L (137-145)
[2019-01-24 05:56] LABS: POTASSIUM 3.1 mmol/L (3.6-5.0)
[2019-01-24 06:01] LABS: CALCIUM 6.2 mg/dL (8.4-10.2)
[2019-01-24 06:07] LABS: PLATELET COUNT 97 10^3/uL (150-450)
[2019-01-24] MEDS ORDERED: MAGNESIUM SULFATE 4 GM/100 ML RTUPB IV ONE ×2 (06:19→06:45)
[2019-01-24] MEDS ORDERED: CALCIUM GLUCONATE 1000 MG/10 ML INJ IV ONE (06:33)
[2019-01-24] MEDS ORDERED: CALCIUM GLUCONATE 2,222 MG in DEXTROSE 5%-WATER 100 ML IV ONE (07:00)
[2019-01-24] MEDS: POTASSI CL 20 MEQ/50 ML RIDER 20 MEQ/50 ML RTUPB IV SCH ×3 (07:12→13:14)
[2019-01-24] MEDS: PANTOPRAZOLE SODIUM 40 MG TABLET.DR PO SCH (07:13)
--- NOTE | 2019-01-24 07:41 | EKG REPORT ---
SEVERITY:- ABNORMAL ECG - ATRIAL FIBRILLATION BORDERLINE PROLONGED QT INTERVAL : Confirmed by: Hal Carr MD 24-Jan-2019 07:40:22
[2019-01-24 08:03] LABS: FOLATE > 20.00 ng/mL (>2.76)
--- NOTE | 2019-01-24 09:11 | PDOC PROGRESS REPORT ---
Subjective Progress Note for:: 01/24/19 Subjective:: The patient is sitting at the edge of the bed. He just finished breakfast. He feels quite good. Physical therapy was just in to assess the patient. Reason For Visit: HYPOCALCEMIA,DEHYDRATION,HYPERTENSION, Physical Exam Vital Signs: Temp Pulse Resp BP Pulse Ox 97.8 F 77 20 109/57 L 94 01/24/19 03:19 01/24/19 07:00 01/24/19 03:19 01/24/19 03:19 01/24/19 03:19 Intake & Output 01/23/19 01/24/19 01/25/19 06:59 06:59 06:59 Intake Total 3620 Output Total 150 Balance 3470 Weight 111 kg General appearance: PRESENT: no acute distress, cooperative, well-developed, other - Improving contusions around the right eye and forehead Head exam: PRESENT: normocephalic. ABSENT: atraumatic Eye exam: PRESENT: conjunctival injection - Still with some conjunctival injection, other - Resolving contusions around the right eye. Ear exam: PRESENT: normal external ear exam Mouth exam: PRESENT: moist, tongue midline Respiratory exam: PRESENT: clear to auscultation jae, symmetrical, unlabored. ABSENT: accessory muscle use, rales, rhonchi, tachypnea, wheezes Cardiovascular exam: PRESENT: RRR, +S1, +S2 GI/Abdominal exam: PRESENT: normal bowel sounds, soft. ABSENT: distended, guarding, tenderness Rectal exam: PRESENT: deferred Gentrourinary exam: ABSENT: indwelling catheter Extremities exam: ABSENT: joint swelling - The knees are sore but there is no madi joint swelling, pedal edema Musculoskeletal exam: ABSENT: ambulatory - I spoke with physical therapy. The patient is very unsteady on his feet and deemed unsafe to walk at this time Neurological exam: PRESENT: alert, awake, oriented to person, oriented to place, oriented to time, oriented to situation, CN II-XII grossly intact. ABSENT: normal gait Psychiatric exam: PRESENT: appropriate affect, normal mood - Actually in good spirits today. ABSENT: agitated, anxious Focused psych exam: ABSENT: delusional, restlessness Skin exam: PRESENT: other - Ecchymotic lesions on the right side of the face and forehead as well as the legs are improving. Gauze dressing on the left elbow for his skin tear. Results Laboratory Results: 01/24/19 04:08 01/24/19 04:08 01/23/19 01/23/19 01/23/19 07:59 07:59 07:59 WBC RBC Hgb Hct MCV MCH MCHC RDW Plt Count Seg Neutrophils % Lymphocytes % Monocytes % Eosinophils % Basophils % Absolute Neutrophils Absolute Lymphocytes Absolute Monocytes Absolute Eosinophils Absolute Basophils Sodium 138.1 Potassium 3.6 Chloride 93 L Carbon Dioxide 32 H Anion Gap 13 BUN 20 Creatinine 1.46 H Est GFR ( Amer) 56 L Est GFR (Non-Af Amer) 46 L Glucose 104 Lactic Acid Calcium 6.1 L* Ionized Calcium Miguel Phosphorus 3.8 Magnesium Total Bilirubin 1.5 H AST 244 H ALT 72 Alkaline Phosphatase 67 Total Protein 6.4 Albumin 3.8 Vitamin B12 Folate TSH 0.28 L Free T4 Free T3 pg/mL PTH Intact 01/23/19 01/23/19 01/23/19 07:59 09:22 14:27 WBC RBC Hgb Hct MCV MCH MCHC RDW Plt Count Seg Neutrophils % Lymphocytes % Monocytes % Eosinophils % Basophils % Absolute Neutrophils Absolute Lymphocytes Absolute Monocytes Absolute Eosinophils Absolute Basophils Sodium 136.7 L Potassium 3.7 Chloride 95 L Carbon Dioxide 32 H Anion Gap 10 BUN 19 Creatinine 1.20 Est GFR ( Amer) > 60 Est GFR (Non-Af Amer) 58 L Glucose 113 H Lactic Acid Calcium 6.3 L* Ionized Calcium Miguel Phosphorus 3.6 Magnesium Total Bilirubin AST ALT Alkaline Phosphatase Total Protein Albumin 3.4 L Vitamin B12 Folate TSH Free T4 1.61 Free T3 pg/mL 3.49 PTH Intact 12.3 01/23/19 01/23/19 01/23/19 14:27 14:27 17:01 WBC RBC Hgb Hct MCV MCH MCHC RDW Plt Count Seg Neutrophils % Lymphocytes % Monocytes % Eosinophils % Basophils % Absolute Neutrophils Absolute Lymphocytes Absolute Monocytes Absolute Eosinophils Absolute Basophils Sodium Potassium Chloride Carbon Dioxide Anion Gap BUN Creatinine Est GFR ( Amer) Est GFR (Non-Af Amer) Glucose Lactic Acid 1.9 Calcium Ionized Calcium Miguel 0.80 L Phosphorus Magnesium 0.3 L* Total Bilirubin AST ALT Alkaline Phosphatase Total Protein Albumin Vitamin B12 Folate TSH Free T4 Free T3 pg/mL PTH Intact 01/23/19 01/24/19 01/24/19 19:10 04:08 04:08 WBC 11.5 H RBC 3.46 L Hgb 12.1 L Hct 35.8 L MCV 103 H MCH 35.1 H MCHC 33.9 RDW 15.3 H Plt Count 97 L Seg Neutrophils % 73.3 Lymphocytes % 19.1 Monocytes % 5.5 Eosinophils % 1.8 Basophils % 0.3 Absolute Neutrophils 8.4 H Absolute Lymphocytes 2.2 Absolute Monocytes 0.6 Absolute Eosinophils 0.2 Absolute Basophils 0.0 Sodium 137.6 137.4 Potassium 4.3 3.1 L D Chloride 96 L 98 Carbon Dioxide 29 31 H Anion Gap 13 8 BUN 20 20 Creatinine 1.16 1.05 Est GFR ( Amer) > 60 > 60 Est GFR (Non-Af Amer) > 60 > 60 Glucose 110 91 Lactic Acid Calcium 7.0 L* 6.2 L* Ionized Calcium Miguel Phosphorus 3.2 Magnesium 0.5 L* 0.8 L* Total Bilirubin AST ALT Alkaline Phosphatase Total Protein Albumin 2.9 L Vitamin B12 Folate TSH Free T4 Free T3 pg/mL PTH Intact 01/24/19 04:08 WBC RBC Hgb Hct MCV MCH MCHC RDW Plt Count Seg Neutrophils % Lymphocytes % Monocytes % Eosinophils % Basophils % Absolute Neutrophils Absolute Lymphocytes Absolute Monocytes Absolute Eosinophils Absolute Basophils Sodium Potassium Chloride Carbon Dioxide Anion Gap BUN Creatinine Est GFR ( Amer) Est GFR (Non-Af Amer) Glucose Lactic Acid Calcium Ionized Calcium Miguel Phosphorus Magnesium Total Bilirubin AST ALT Alkaline Phosphatase Total Protein Albumin Vitamin B12 410.0 Folate > 20.00 TSH Free T4 Free T3 pg/mL PTH Intact 01/23/19 07:59 Troponin I < 0.012 Impressions: Chest X-Ray 01/23/19 07:22 IMPRESSION: Emphysematous change without evidence of acute cardiopulmonary process. Assessment and Plan - Diagnosis (1) Hypocalcemia Is this a current diagnosis for this admission?: Yes Plan: 01/23/2019-the patient has not been eating well at all. His has been hospitalized multiple times and has been at the custodial facility. He tends not to eat when he is home. He does take calcium and vitamin D twice a day but it may not be absorbed all that well. In addition he has profound hyp omagnesemia. I believe this is contributing to his prolonged QT. His albumin is not terribly low and so there is no significant correction for hypoalbuminemia. He is receiving IV calcium gluconate. His ionized calcium is low. Laboratory studies are ordered for later tonight and the morning. His magnesium will be repleted as well. 01/24/2019-despite IV calcium and attempts at correcting the magnesium his serum calcium is still down at 6.2. Albumin is only 2.9 and so corrected calcium is still below the normal range. He will receive another dose of IV calcium gluconate. Serial laboratory studies have been ordered. (2) Hypomagnesemia Is this a current diagnosis for this admission?: Yes Plan: 01/23/2019-the patient has profound hypomagnesemia with hypocalcemia. His diet has been terrible for some time. I do not think he has had a full meal over the last 2 to 3 days. I think he has become dehydrated as well. I have ordered 4 g of magnesium sulfate IV and will recheck his labs tonight and tomorrow. 01/24/2019-despite IV magnesium sulfate his magnesium level is only 0.8. He was 0.3. Received 2 g of magnesium and went up to 0.5. He received another 2 g once 0.8. 4 g have been ordered for today. Continue to follow serum magnesium level. (3) Dehydration Is this a current diagnosis for this admission?: Yes Plan: 01/23/2019-as noted above he has not been eating and drinking all that well. I believe his tachycardia and hypertension are directly related to hypovolemia. He also has a history of atrial fibrillation and therefore is prone to rapid ventricular response especially under the circumstances. He will receive ongoing IV fluids and monitor electrolytes as noted above. 01/24/2019-with IV fluids he is feeling much better. His appetite is improved as well. (4) Hypotension Qualifiers: Hypotension type: unspecified hypotension type Qualified Code(s): I95.9 - Hypotension, unspecified Is this a current diagnosis for this admission?: Yes Plan: 01/23/2019-normally the patient takes lisinopril and hydrochlorothiazide (as well as potassium) but is volume depleted. I have put parameters on his medications and have asked that he not take his hydrochlorthiazide until tomorrow. With several boluses of IV fluids in the emergency department he has already seen a significant improvement. 7 2115-his blood pressure is improved somewhat. He is on lisinopril 20 mg twice daily and atenolol 50 mg. There are parameters in place. He is also on hydrochlorthiazide but I have held this and will consider resuming tomorrow. (5) Atrial fibrillation with RVR Is this a current diagnosis for this admission?: Yes Plan: 01/23/2019-the patient does have a history of A. fib with RVR. Due to his recent falls and all contusions I am not starting him on oral anticoagulation. He will be on DVT prophylaxis only. With fluids his heart rate is coming down. We will monitor closely and if necessary start a beta-emeka. 01/24/2019-by auscultation he seems to be in a regular rhythm. History of fibrillation and was in fibrillation on admission. No anticoagulation because of his significant number of falls. Therapy saw the patient and he is unsteady on his feet and so the risk of bleeding with anticoagulation is too high at this point. (6) Hypercholesterolemia Is this a current diagnosis for this admission?: Yes Plan: 01/23/2019-for some reason the patient is on atorvastatin and simvastatin. I will continue his atorvastatin. Tomorrow we will discuss the need to utilize one medication or the other but not both. 01/24/2019-continue atorvastatin (7) Knee pain, bilateral Qualifiers: Chronicity: acute Qualified Code(s): M25.561 - Pain in right knee; M25.562 - Pain in left knee Is this a current diagnosis for this admission?: Yes Plan: The patient has a history of a patella fracture but with his recent falls his knee pain has increased. I have ordered plain films to make sure that he did not sustain another fracture with his falls. He normally takes naproxen daily as well as acetaminophen. We discussed the concerns about anti-inflammatories with underlying hypertension but he has been doing this for a long time. He also takes a Percocet 04/12/2025 every night. Await results of the x-rays. If needed will consult orthopedics. 01/24/2019-awaiting dictated report from the knee x-rays. By my review I did not appreciate any fractures. (8) Hypokalemia Is this a current diagnosis for this admission?: Yes Plan: 01/24/2019-the patient serum potassium was somewhat low. He is on potassium replacement therapy. He may require increased doses when his diuretic therapy resumes. (9) Multiple falls Is this a current diagnosis for this admission?: Yes Plan: 01/24/2019-the patient was seen by physical therapy. I reviewed the patient with the therapist. He states that the patient is unsafe for ambulation. We are going to try and convince patient to stay overnight and with ongoing fluids and improved appetite hopefully his strength will be better. - Time Time Spent with patient: 15-24 minutes - Plan Summary Plan Summary: The patient currently spends most of his time visiting his either at [facility] or as an inpatient. She is currently on the fourth floor of this hospital. He has neglected himself because of this. His appetite has been extremely poor. He is gotten weak. He likely continue taking his medications which dropped his blood pressure even more. He feels better today but he is at great risk of falling. We will try and convince him to stay another day as we continue to replete his calcium, magnesium and potassium.
--- NOTE | 2019-01-24 09:32 | RADIOLOGY REPORT (SQ) ---
EXAM DESCRIPTION: KNEE BILATERAL 1-2 VIEWS COMPLETED DATE/TIME: 01/23/2019 5:31 pm REASON FOR STUDY: Knee pain, multiple falls E83.51 HYPOCALCEMIA COMPARISON: None. NUMBER OF VIEWS: Two views right knee. Two views left knee. TECHNIQUE: AP and cross-table lateral views of both knees. LIMITATIONS: None. FINDINGS: MINERALIZATION: Normal. RIGHT KNEE BONES: No acute fracture. No worrisome bone lesions. MEDIAL COMPARTMENT: There has minimal narrowing of the medial knee joint. LATERAL COMPARTMENT: No significant osteophytes. No joint space narrowing. No chondrocalcinosis. PATELLOFEMORAL COMPARTMENT: Minimal osteophytic change patellofemoral joint. MISCELLANEOUS: Vascular calcification. LEFT KNEE BONES: No acute fracture. No worrisome bone lesions. MEDIAL COMPARTMENT: No significant osteophytes. No joint space narrowing. No chondrocalcinosis. LATERAL COMPARTMENT: No significant osteophytes. No joint space narrowing. No chondrocalcinosis. PATELLOFEMORAL COMPARTMENT: No significant osteophytes. No joint space narrowing. No chondrocalc inosis. MISCELLANEOUS: Vascular calcification. IMPRESSION: Minimal degenerative arthritis of right knee. TECHNICAL DOCUMENTATION: JOB ID: [id number] 2010 [employer]- All Rights Reserved Reading location - IP/workstation name: [email or web address]
[2019-01-24] MEDS: CALCIUM CARBONATE 250 MG/VITAMIN D3 125 UNIT TABLET PO SCH ×2 (10:11→17:52)
[2019-01-24] MEDS: POTASSIUM CHLORIDE 10 MEQ CAPSULE.ER PO SCH ×2 (10:12→17:52)
[2019-01-24] MEDS: CETIRIZINE 10 MG TABLET PO SCH (10:12)
[2019-01-24] MEDS: ALLOPURINOL 100 MG TABLET PO SCH (10:12)
[2019-01-24] MEDS: SITAGLIPTIN PHOSPHATE 50 MG TABLET PO SCH (10:12)
[2019-01-24] MEDS: LISINOPRIL 10 MG TABLET PO SCH ×2 (10:12→21:31)
[2019-01-24] MEDS: MAGNESIUM OXIDE 400 MG TABLET PO SCH ×3 (10:12→17:52)
[2019-01-24] MEDS: FERROUS SULFATE 325 MG TABLET PO SCH (10:12)
[2019-01-24] MEDS: MULTIVITAMIN TABLET PO SCH (10:13)
[2019-01-24] MEDS: BACITRACIN ZINC OINTMENT 15 GM TP SCH ×2 (10:13→18:07)
[2019-01-24] MEDS: ATENOLOL 50 MG TABLET PO SCH (10:14)
[2019-01-24] MEDS: ENOXAPARIN SODIUM INJ 40 MG/0.4 ML DISP.SYRIN SUBCUT SCH (11:52)
[2019-01-24] MEDS: ASPIRIN 81 MG TABLET, ENT COATED PO SCH (11:52)
[2019-01-24 12:11] LABS: ANION GAP 9 (5-19); BLOOD UREA NITROGEN 17 mg/dL (7-20); CARBON DIOXIDE 30 mmol/L (22-30); CHLORIDE 97 mmol/L (98-107); GLUCOSE 123 mg/dL (75-110); POTASSIUM 3.7 mmol/L (3.6-5.0); SODIUM 136.1 mmol/L (137-145)
[2019-01-24 12:34] LABS: CALCIUM 6.7 mg/dL (8.4-10.2)
[2019-01-24 23:21] LABS: ANION GAP 6 (5-19); BLOOD UREA NITROGEN 16 mg/dL (7-20); CARBON DIOXIDE 28 mmol/L (22-30); CHLORIDE 103 mmol/L (98-107); GLUCOSE 106 mg/dL (75-110); POTASSIUM 3.8 mmol/L (3.6-5.0); SODIUM 136.7 mmol/L (137-145)
[2019-01-24 23:34] LABS: CALCIUM 6.6 mg/dL (8.4-10.2)
[2019-01-25] MEDS ORDERED: CALCIUM GLUCONATE 1000 MG/10 ML INJ IV ONE (00:10)
[2019-01-25] MEDS: OXYCODONE HCL IR 5 MG TABLET PO PRN ×2 (00:50→13:19)
[2019-01-25] MEDS: OXYCODONE-ACETAMINOPHEN 5-325 MG TABLET PO PRN ×2 (00:51→13:19)
[2019-01-25] MEDS: NORMAL SALINE 1000 ML 1,000 ML IV PRN ×2 (00:55→07:53)
[2019-01-25] MEDS: PANTOPRAZOLE SODIUM 40 MG TABLET.DR PO SCH (06:10)
[2019-01-25 07:21] LABS: HEMATOCRIT 32.9 % (37.9-51.0); HEMOGLOBIN 11.3 g/dL (13.5-17.0); MEAN CORPUSCULAR HGB CONC 34.4 g/dL (32.0-36.0); MEAN CORPUSCULAR VOLUME 105 fl (80-97); RED BLOOD COUNT 3.14 10^6/uL (4.35-5.55); RED CELL DISTRIBUTION WIDTH 15.2 % (11.5-14.0); WHITE BLOOD COUNT 7.8 10^3/uL (4.0-10.5)
[2019-01-25 07:35] LABS: BLOOD UREA NITROGEN 13 mg/dL (7-20); CHLORIDE 103 mmol/L (98-107); GLUCOSE 105 mg/dL (75-110); POTASSIUM 4.1 mmol/L (3.6-5.0)
[2019-01-25 07:40] LABS: CARBON DIOXIDE 33 mmol/L (22-30); SODIUM 138.7 mmol/L (137-145)
[2019-01-25 07:48] LABS: ANION GAP 3 (5-19)
[2019-01-25 07:49] LABS: CALCIUM 6.7 mg/dL (8.4-10.2)
[2019-01-25 08:00] LABS: PLATELET COUNT 91 10^3/uL (150-450)
[2019-01-25] MEDS ORDERED: HYDROCHLOROTHIAZIDE 25 MG TABLET PO SCH (08:00)
[2019-01-25] MEDS: INSULIN REG, HUMAN 100 UNIT/ML 3 ML VIAL (PYX) SUBCUT SCH ×2 (08:59→11:47)
[2019-01-25] MEDS ORDERED: MAGNESIUM SULFATE 4 GM/100 ML RTUPB IV ONE (09:30)
[2019-01-25] MEDS: ENOXAPARIN SODIUM INJ 40 MG/0.4 ML DISP.SYRIN SUBCUT SCH (09:42)
[2019-01-25] MEDS: ASPIRIN 81 MG TABLET, ENT COATED PO SCH (09:44)
[2019-01-25] MEDS: MULTIVITAMIN TABLET PO SCH (09:44)
[2019-01-25] MEDS: CALCIUM CARBONATE 250 MG/VITAMIN D3 125 UNIT TABLET PO SCH (09:45)
[2019-01-25] MEDS: POTASSIUM CHLORIDE 10 MEQ CAPSULE.ER PO SCH (09:45)
[2019-01-25] MEDS: FERROUS SULFATE 325 MG TABLET PO SCH (09:45)
[2019-01-25] MEDS: LISINOPRIL 10 MG TABLET PO SCH (09:45)
[2019-01-25] MEDS: CETIRIZINE 10 MG TABLET PO SCH (09:46)
[2019-01-25] MEDS: BACITRACIN ZINC OINTMENT 15 GM TP SCH (09:46)
[2019-01-25] MEDS: SITAGLIPTIN PHOSPHATE 50 MG TABLET PO SCH (09:46)
[2019-01-25] MEDS: ALLOPURINOL 100 MG TABLET PO SCH (09:46)
[2019-01-25] MEDS: ATENOLOL 50 MG TABLET PO SCH (09:46)
--- NOTE | 2019-01-25 11:31 | PDOC DISCHARGE SUMMARY ---
General - Admit/Disc Date/PCP Admission Date/Primary Care Provider: 01/24/19 09:51 SYED LOBATO MD Discharge Date: 01/25/19 - Discharge Diagnosis (1) Hypocalcemia Is this a current diagnosis for this admission?: Yes Summary: Patient has marked hypocalcemia despite calcium supplements. He has not been eating well or multiple weeks as his is hospitalized and he spends most of the time with her either at the long-term or in the hospital. He has responded to IV calcium but is not yet in the normal range. His magnesium was markedly decreased as well and this is improving. He has been eating regular meals in the hospital. He will increase his calcium with vitamin D to 2 tablets twice daily. I recommended follow-up with Dr. Lobato for blood work in 3 to 4 days. (2) Hypomagnesemia Is this a current diagnosis for this admission?: Yes Summary: Patient had severe hypomagnesemia (0.3) and he has responded to intravenous magnesium. He is receiving 4 more grams of magnesium sulfate this morning and this should put him in the normal range. I have also instructed him to take magnesium oxide 3 times a day. (3) Dehydration Is this a current diagnosis for this admission?: Yes Summary: The patient was dehydrated. He has not been eating or drinking properly. With the administration of IV fluids this is improved. (4) Hypotension Is this a current diagnosis for this admission?: Yes Summary: Because of his dehydration he was hypotensive. This has resolved with IV fluids. I have encouraged him to maintain a better diet and adequate fluid intake. (5) Atrial fibrillation with RVR Is this a current diagnosis for this admission?: Yes Summary: Patient has a history of atrial fibrillation. He is currently on atenolol and this is keeping his weight reasonably controlled. He was tachycardic initially but correction of the dehydration has improved this. (6) Hypercholesterolemia Is this a current diagnosis for this admission?: Yes Summary: He will continue his statin therapy (7) Knee pain, bilateral Is this a current diagnosis for this admission?: Yes Summary: He has had multiple falls. Physical therapy is working with him. He can ambu late but he needs to pay attention closely to different cues and focus on what he is doing. He should continue his analgesia as is. Consider topical treatment for his knee pain. (8) Hypokalemia Is this a current diagnosis for this admission?: Yes Summary: This should correct with better diet. We will start low-dose potassium s upplement. (9) Multiple falls Is this a current diagnosis for this admission?: Yes Summary: This may very well be due to increased weakness from very poor nutrition as well as dehydration. He worked with physical therapy this morning. He can ambulate but he needs to use a walker. He would benefit from therapy as an outpatient. - Additional Information Resuscitation Status: Do Not Resuscitate Discharge Diet: Cardiac Discharge Activity: Balance Activity w/Rest Home Medications: Allopurinol [Zyloprim 100 mg Tablet] 100 mg PO DAILY 05/08/11 Hydrochlorothiazide [Hydrodiuril 25 mg Tablet] 25 mg PO QAM 05/08/11 Simvastatin [Zocor 40 mg Tablet] 40 mg PO QHS 05/08/11 Cetirizine HCl [Zyrtec 10 mg Tablet] 10 mg PO DAILY 10/23/15 Aspirin [Gena Advanced] 500 mg PO DAILYP PRN 01/23/19 Aspirin [Ecotrin 81 mg EC Tablet] 81 mg PO DAILY 01/23/19 Atenolol [Tenormin 50 mg Tablet] 50 mg PO DAILY 01/23/19 Atorvastatin Calcium [Lipitor 40 mg Tablet] 40 mg PO QHS 01/23/19 Calcium Carbonate/Vitamin D3 [Os-Lyle 500+D Tablet] 1 tab PO BID 01/23/19 Ferrous Sulfate [Feosol 325 mg Tablet] 325 mg PO DAILY 01/23/19 Lisinopril [Prinivil 10 mg Tablet] 20 mg PO Q12 01/23/19 Multivitamin [Tab-A-Treasure (Multiple Vitamin) Tablet] 1 tab PO DAILY 01/23/19 Naproxen [Naprosyn] 500 mg PO Q12 01/23/19 Oxycodone HCl/Acetaminophen [Percocet 10-325 Mg Tablet] 1 each PO QHS 01/23/19 Potassium Chloride [Klor-Con 10 Meq Capsule ER] 10 meq PO BID 01/23/19 Sitagliptin Phosphate [Januvia 50 mg Tablet] 50 mg PO DAILY 01/23/19 History of Present Illness Patient complains of: Multiple falls History of Present Illness: TOMI BOX is a 78 year old male who is well-known to this provider. I have been seeing the patient at the bedside as his has been hospitalized multiple times and is currently in the hospital. Patient states that while she is in the hospital he does not eat much or drink much. He continues his daily medicines which include an BETO inhibitor and diuretic. He has been reporting significant lightheadedness with position change as well as multiple falls. He has an abrasion on his forehead as well as contusions around the eye. There is a small skin tear on the left elbow. He has multiple bruises. Upon evaluation emergency department he is noted to be hypocalcemic with an elevated serum creatinine. He was referred to the hospitalist service for admission for telemetry monitoring, IV fluids and electrolyte replacement. Hospital Course Hospital Course: The patient had a fairly unremarkable hospital course. Initial evaluation with physical therapy revealed that he was unsafe at that time. His function has improved. He had profound electrolyte disorders including hypomagnesemia, hypocalcemia and hypokalemia. He has been eating very poorly for many weeks due to his 's hospitalization. He also has had decreased fluid intake. With aggressive intravenous replacement of magnesium and calcium his numbers have improved. His is extremely ill with a very poor prognosis. Because he does need to attend to his and issues at home. To discharge the patient after his intravenous magnesium this morning. He needs to follow-up with Dr. Lobato to check his blood chemistries as well as increase his calcium supplement and start magnesium oxide supplement Physical Exam Vital Signs: Temp Pulse Resp BP Pulse Ox 98.2 F 76 18 121/63 94 01/25/19 07:45 01/25/19 07:45 01/25/19 07:45 01/25/19 07:45 01/25/19 07:45 Intake & Output 01/24/19 01/25/19 01/26/19 06:59 06:59 06:59 Intake Total 3620 5191 Output Total 150 400 Balance 3470 4791 Weight 111 kg 108.2 kg General appearance: PRESENT: no acute distress, cooperative, well-developed Head exam: PRESENT: atraumatic, normocephalic, other - Contusions around the right eye improved Eye exam: PRESENT: conjunctiva pink. ABSENT: scleral icterus Ear exam: PRESENT: normal external ear exam Mouth exam: PRESENT: moist, tongue midline Respiratory exam: PRESENT: clear to auscultation jae, symmetrical, unlabored. ABSENT: rales, rhonchi, tachypnea, wheezes Cardiovascular exam: PRESENT: RRR - Despite his history of atrial fibrillation by auscultation his rhythm is quite regular., +S1, +S2 GI/Abdominal exam: PRESENT: normal bowel sounds, soft. ABSENT: distended, tenderness Extremities exam: ABSENT: calf tenderness, pedal edema Musculoskeletal exam: PRESENT: normal inspection - Contusions are improving. Neurological exam: PRESENT: alert, awake, oriented to person, oriented to place, oriented to time, oriented to situation, CN II-XII grossly intact Psychiatric exam: PRESENT: appropriate affect, normal mood. ABSENT: agitated, anxious Focused psych exam: ABSENT: delusional, restlessness Skin exam: PRESENT: other - Multiple contusions improving. Results Laboratory Results: 01/25/19 07:06 01/25/19 07:06 01/24/19 01/24/19 01/24/19 10:50 18:00 22:53 WBC RBC Hgb Hct MCV MCH MCHC RDW Plt Count Sodium 136.1 L 136.7 L Potassium 3.7 3.8 Chloride 97 L 103 Carbon Dioxide 30 28 Anion Gap 9 6 BUN 17 16 Creatinine 0.87 0.88 Est GFR ( Amer) > 60 > 60 Est GFR (Non-Af Amer) > 60 > 60 Glucose 123 H 106 Calcium 6.7 L* 6.6 L* Magnesium Stool Occult Blood NEGATIVE 01/25/19 01/25/19 07:06 07:06 WBC 7.8 RBC 3.14 L Hgb 11.3 L Hct 32.9 L MCV 105 H MCH 36.0 H MCHC 34.4 RDW 15.2 H Plt Count 91 L Sodium 138.7 Potassium 4.1 Chloride 103 Carbon Dioxide 33 H Anion Gap 3 L BUN 13 Creatinine 0.74 Est GFR ( Amer) > 60 Est GFR (Non-Af Amer) > 60 Glucose 105 Calcium 6.7 L* Magnesium 1.2 L* Stool Occult Blood 01/23/19 07:59 Troponin I < 0.012 Impressions: Chest X-Ray 01/23/19 07:22 IMPRESSION: Emphysematous change without evidence of acute cardiopulmonary process. Knee X-Ray 01/23/19 16:45 IMPRESSION: Minimal degenerative arthritis of right knee. Qualifiers - * PATIENT BEING DISCHARGED WITH ANY OF THE FOLLOWING DIAGNOSIS: No Acute Heart Failure - Is this a Heart Failure Patient?: No Plan Discharge Plan: This is a difficult situation. On balance the patient's has an extremely poor prognosis. He wants to be with her. There is no one else to attend to issues at home such as feeding the pets. They are in the process of seeing if his needs to transfer to higher level of care to treat a bronchopleural fistula. She is a high risk candidate. This cannot be done in the area and this will mean that the patient will need to travel. I believe that with the intravenous medications that he is received and provided he continues with good appetite and intake as well as the supplements his electrolytes should normalize. Time Spent: Greater than 30 Minutes
[2019-01-25] MEDS ORDERED: MAGNESIUM OXIDE 400 MG TABLET PO SCH (12:00)
[2019-01-25 16:24] VITALS: BP 107/72
== END 2019-01-25 16:40 | disposition home or self-care (01) | DRG 641 ==
LOC: ER 06:33 → EH 10:17 → INTOOBSV 10:17 → 3W 22:49 → OBSVTOIN 01-24 09:51
PROVIDERS: ADMIT Hospitalist; ATTEND Hospitalist
DX: E83.51 Hypocalcemia (principal); E86.0 Dehydration; S51.012A Laceration without foreign body of left elbow, initial encounter; S00.81XA Abrasion of other part of head, initial encounter; S00.11XA Contusion of right eyelid and periocular area, initial encounter; W18.30XA Fall on same level, unspecified, initial encounter; Y92.129 Unspecified place in nursing home as the place of occurrence of the external cause; I48.91 Unspecified atrial fibrillation; I10 Essential (primary) hypertension; E11.9 Type 2 diabetes mellitus without complications; M19.90 Unspecified osteoarthritis, unspecified site; Z79.899 Other long term (current) drug therapy; R74.0 Nonspecific elevation of levels of transaminase and lactic acid dehydrogenase [LDH]; M10.9 Gout, unspecified; I95.9 Hypotension, unspecified; E83.42 Hypomagnesemia; M25.562 Pain in left knee; E78.00 Pure hypercholesterolemia, unspecified; E87.6 Hypokalemia; Z66 Do not resuscitate; R29.6 Repeated falls; Z79.82 Long term (current) use of aspirin; Z90.49 Acquired absence of other specified parts of digestive tract; Z87.891 Personal history of nicotine dependence; Z87.81 Personal history of (healed) traumatic fracture
CPT/HCPCS: 36415; 71045; 80048; 80053; 81001; 82040; 82272; 82330; 82607; 82746; 82803; 82962; 83605; 83735; 83970; 84100; 84439; 84443; 84481; 84484; 85025; 85027; 85610; 87040; 87086; 93005; 93010; 96361; 96374; 99285; J0610; J3475; J3480; J3490; J7030; J7060; J7120

== ENCOUNTER 2019-01-27 12:12 | Emergency (ER) | payer MEDICARE, OTHER ==
--- NOTE | 2019-01-27 12:36 | ER Document Report ---
ED Medical Screen (RME) - General Chief Complaint: Abnormal Lab Results Stated Complaint: ABNORMAL LABS Time Seen by Provider: 01/27/19 12:23 Primary Care Provider: SYED LOBATO MD [Primary Care Provider] - Follow up as needed Notes: 78-year-old male who left AMA this past after being admitted for electrolyte abnormalities presents to the emergency department to follow-up from his previous discharge. 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 Since then his has transferred to a higher level of care and patient returned to the emergency department to follow-up from his previous care plan. Patient had significant hypomagnesemia, hypokalemia, hypocalcemia from his previous admission. Patient states that he has acute dyspnea on exertion with no chest pain. States that he does still have weakness, dizziness, lightheadedness. Says his intake has been poor. Denies any fevers or chills, headaches, neck stiffness, abdominal pain, nausea/vomiting/diarrhea/constipation, urinary symptoms. No other complaints. I have greeted and performed a rapid initial assessment of this patient. A comprehensive ED assessment and evaluation of the patient, analysis of test results and completion of medical decision making process will be conducted by an additional ED providers. TRAVEL OUTSIDE OF THE [place] IN LAST 30 DAYS: No - Related Data Allergies/Adverse Reactions: No Known Drug Allergies Allergy (Verified 01/27/19 12:13) Past Medical History - Social History Chew tobacco use (# tins/day): No Frequency of alcohol use: DAILY Drug Abuse: None - Past Medical History Cardiac Medical History: Reports: Hx Atrial Fibrillation, Hx Hypercholesterolemia, Hx Hypertension - meds x 20 yrs Denies: Hx Coronary Artery Disease, Hx Heart Attack Pulmonary Medical History: Reports: Hx COPD - see cxr, Hx Pneumonia - 2010 Denies: Hx Asthma, Hx Bronchitis Neurological Medical History: Denies: Hx Cerebrovascular Accident, Hx Seizures Endocrine Medical History: Reports: Hx Diabetes Mellitus Type 2 Renal/ Medical History: Denies: Hx End Stage Renal Disease, Hx Peritoneal Dialysis GI Medical History: Denies: Hx Cirrhosis, Hx Diverticulitis, Hx Hiatal Hernia Musculoskeltal Medical History: 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,gout Psychiatric Medical History: Reports: Hx Depression Denies: Hx Bipolar Disorder Past Surgical History: Reports: Hx Appendectomy, Hx Cholecystectomy - Immunizations Hx Diphtheria, Pertussis, Tetanus Vaccination: Yes Physical Exam - Vital signs Vitals: Temp Pulse Resp BP Pulse Ox 98.0 F 106 H 16 110/52 L 96 01/27/19 12:16 01/27/19 12:16 01/27/19 12:16 01/27/19 12:01/27/19 12:16 - Notes Notes: PHYSICAL EXAMINATION: Reviewed vital signs and charting by RN GENERAL: Alert, interacts well. No acute distress. HEAD: Normocephalic, atraumatic. EYES: Pupils equal and round. Extraocular movements intact. ENT: Oral mucosa moist, tongue midline. NECK: Full range of motion. Trachea midline. LUNGS: Clear to auscultation bilaterally, no wheezes, rales, or rhonchi. No respiratory distress. HEART: Regular rate and rhythm. No murmur ABDOMEN: soft, non-tender. No distention. Bowel sounds present EXTREMITIES: Moves all 4 extremities spontaneously. No edema, No cyanosis. PSYCH: Normal affect, normal mood. SKIN: Patient with a bandage over previous skin tear on his left elbow with a Xeroform dressing in place. Patient with significant ecchymosis on his bilateral forearms Course - Vital Signs Vital signs: Temp Pulse Resp BP Pulse Ox 98.0 F 106 H 16 110/52 L 96 01/27/19 12:16 01/27/19 12:16 01/27/19 12:16 01/27/19 12:16 01/27/19 12:16 Doctor's Discharge - Discharge Referrals: SYED LOBATO MD [Primary Care Provider] - Follow up as needed
[2019-01-27] MEDS ORDERED: NORMAL SALINE 1000 ML 1,000 ML IV ONE (12:39)
[2019-01-27 13:22] LABS: ABSOLUTE LYMPHOCYTES (AUTO) 0.8 10^3/uL (0.5-4.7); ABSOLUTE MONOCYTES (AUTO) 0.8 10^3/uL (0.1-1.4); ABSOLUTE NEUT (AUTO) 8.7 10^3/uL (1.7-8.2); BASOPHILS % (AUTO) 0.4 % (0-2); EOSINOPHILS % (AUTO) 0.3 % (0-6); HEMATOCRIT 36.8 % (37.9-51.0); HEMOGLOBIN 12.5 g/dL (13.5-17.0); LYMPHOCYTES % (AUTO) 7.9 % (13-45); MEAN CORPUSCULAR HEMOGLOBIN 35.8 pg (27.0-33.4); MEAN CORPUSCULAR HGB CONC 34.1 g/dL (32.0-36.0); MEAN CORPUSCULAR VOLUME 105 fl (80-97); MONOCYTES % (AUTO) 7.5 % (3-13); PLATELET COUNT 134 10^3/uL (150-450); RED CELL DISTRIBUTION WIDTH 15.4 % (11.5-14.0); SEGMENTED NEUTROPHILS % (AUTO) 83.9 % (42-78); TOTAL CELLS COUNTED % (AUTO) 100 %; WHITE BLOOD COUNT 10.4 10^3/uL (4.0-10.5)
[2019-01-27 13:36] LABS: ALANINE AMINOTRANSFERASE 75 U/L (21-72); ALBUMIN 3.7 g/dL (3.5-5.0); ALKALINE PHOSPHATASE 87 U/L (38-126); ANION GAP 9 (5-19); ASPARTATE AMINO TRANSFERASE 129 U/L (17-59); BILIRUBIN,DIRECT 0.4 mg/dL (0.0-0.4); BILIRUBIN,TOTAL 1.1 mg/dL (0.2-1.3); BLOOD UREA NITROGEN 15 mg/dL (7-20); CARBON DIOXIDE 33 mmol/L (22-30); CHLORIDE 98 mmol/L (98-107); GLUCOSE 117 mg/dL (75-110); SODIUM 140.2 mmol/L (137-145); TOTAL PROTEIN 6.3 g/dL (6.3-8.2)
[2019-01-27 13:37] LABS: POTASSIUM 4.8 mmol/L (3.6-5.0)
[2019-01-27 14:46] LABS: APPEARANCE,URINE CLEAR; BILIRUBIN,URINE NEGATIVE (NEGATIVE); COLOR,URINE YELLOW; GLUCOSE, URINE NEGATIVE (NEGATIVE); KETONES,URINE NEGATIVE (NEGATIVE); LEUKOCYTE ESTERASE,URINE NEGATIVE (NEGATIVE); NITRITE,URINE NEGATIVE (NEGATIVE); PROTEIN,URINE NEGATIVE (NEGATIVE); URINE SPECIFIC GRAVITY 1.012; UROBILINOGEN,URINE NEGATIVE mg/dL (<2.0)
[2019-01-27] MEDS ORDERED: MAGNESIUM SULFATE/D5W 1 GM/100 ML RTUPB IV ONE (14:53)
[2019-01-27 15:19] LABS: VENOUS BLOOD BASE EXCESS 4.9 mmol/L; VENOUS BLOOD HCO3 28.1 mmol/L (20-32); VENOUS BLOOD PCO2 36.5 mmHg (35-63); VENOUS BLOOD PH 7.5 (7.30-7.42)
--- NOTE | 2019-01-27 15:36 | RADIOLOGY REPORT (SQ) ---
EXAM DESCRIPTION: CHEST 2 VIEWS COMPLETED DATE/TIME: 01/27/2019 3:28 pm REASON FOR STUDY: SOB, dyspnea on exertion COMPARISON: 01/23/2019 EXAM PARAMETERS: NUMBER OF VIEWS: two views TECHNIQUE: Digital Frontal and Lateral radiographic views of the chest acquired. RADIATION DOSE: NA LIMITATIONS: none FINDINGS: LUNGS AND PLEURA: No opacities, masses or pneumothorax. No pleural effusion. MEDIASTINUM AND HILAR STRUCTURES: No masses or contour abnormalities. HEART AND VASCULAR STRUCTURES: Cardiomegaly. BONES: No acute findings. HARDWARE: None in the chest. OTHER: No other significant finding. IMPRESSION: Cardiomegaly without acute abnormality of the lungs. No focal airspace opacity. TECHNICAL DOCUMENTATION: JOB ID: [id number] [employer]- All Rights Reserved Reading location - IP/workstation name: [email or web address]
[2019-01-27 15:48] LABS: CREATINE KINASE MB 4.19 ng/mL (<4.55)
[2019-01-27 15:51] LABS: TROPONIN I < 0.012 ng/mL
[2019-01-27 16:14] VITALS: BP 122/67
--- NOTE | 2019-01-27 18:05 | EKG REPORT ---
SEVERITY:- ABNORMAL ECG - ATRIAL FIBRILLATION : Confirmed by: Hal Carr MD 27-Jan-2019 18:04:10
[2019-01-27] MEDS ORDERED: CEPHALEXIN 500 MG CAPSULE PO ONE (18:28)
--- NOTE | 2019-01-27 22:00 | ER Document Report ---
Entered by BELEN DYSON SCRIBE 01/27/19 1507 Acting as scribe for:ALIYA MULLINS DO ED General - General Chief Complaint: Abnormal Lab Results Stated Complaint: ABNORMAL LABS Time Seen by Provider: 01/27/19 12:23 Primary Care Provider: SYED MONGE MD [Primary Care Provider] - Follow up as needed Mode of Arrival: Ambulatory Information source: Patient Notes: Patient is an 78 year old male with Afib, type 2 diabetes presents to the emergency department complaining of general malaise, shortness of breath and leg pain. Patient states his was recently diagnosed with bronchopleural fistula and reports she has been in and out of the hospital and skilled nursing. He states due to this, he has not been eating, drinking or has had much physical activity. Patient presented to the emergency department on 01/23/2019 due a fall secondary light headedness. Patient was subsequently admitted with diagnoses of hypomagnesemia, hypokalemia, hypocalcemia. Patient left the hospital before he was fully better on 01/25/2019 and was told to return as soon as possible the next day. He states he feels better than when he was initally admitted, although not completely normal. He also complains of chronic back pain due to sciatica. He denies any chest pain or recent stress tests or catheterizations. Patient is not on any blood thinners. His PCP is Dr. Monge. TRAVEL OUTSIDE OF THE [place] IN LAST 30 DAYS: No - Related Data Allergies/Adverse Reactions: No Known Drug Allergies Allergy (Verified 01/27/19 12:13) Past Medical History - General Information source: Patient - Social History Smoking Status: Never Smoker Cigarette use (# per day): No Chew tobacco use (# tins/day): No Frequency of alcohol use: DAILY Drug Abuse: None Lives with: Spouse/Significant other Family History: Reviewed & Not Pertinent, Malignancy Patient has suicidal ideation: No Patient has homicidal ideation: No - Past Medical History Cardiac Medical History: Reports: Hx Atrial Fibrillation, Hx Hypercholesterolemia, Hx Hypertension - meds x 20 yrs Pulmonary Medical History: Reports: Hx COPD - see cxr, Hx Pneumonia - 2010 Endocrine Medical History: Reports: Hx Diabetes Mellitus Type 2 Musculoskeletal Medical History: 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,gout Psychiatric Medical History: Reports: Hx Depression Past Surgical History: Reports: Hx Appendectomy, Hx Cholecystectomy - Immunizations Hx Diphtheria, Pertussis, Tetanus Vaccination: Yes Hx Pneumococcal Vaccination: 07/11/10 Review of Systems - Review of Systems Constitutional: See HPI, Malaise EENT: No symptoms reported Cardiovascular: No symptoms reported Respiratory: See HPI, Short of breath Gastrointestinal: No symptoms reported Genitourinary: No symptoms reported Male Genitourinary: No symptoms reported Musculoskeletal: See HPI, Back pain Skin: No symptoms reported Hematologic/Lymphatic: No symptoms reported Neurological/Psychological: No symptoms reported -: Yes All other systems reviewed and negative Physical Exam - Vital signs Vitals: Temp Pulse Resp BP Pulse Ox 98.0 F 106 H 16 110/52 L 96 01/27/19 12:16 01/27/19 12:16 01/27/19 12:16 01/27/19 12:16 01/27/19 12:16 Interpretation: Tachycardic - Notes Notes: GENERAL: Alert, interacts well. No acute distress. HEAD: Normocephalic. Abrasion to the right side of the forehead. Old right periorbital ecchymosis. EYES: Pupils equal, round, and reactive to light. Extraocular movements intact. ENT: Oral mucosa moist, tongue midline. NECK: Full range of motion. Supple. Trachea midline. LUNGS: Clear to auscultation bilaterally, no wheezes, rales, or rhonchi. No respiratory distress. HEART: Slightly irregularly irregular. No murmurs, gallops, or rubs. ABDOMEN: Soft, non-tender. Non-distended. Bowel sounds present in all 4 quadrants. No guarding, rigidity, or rebound. EXTREMITIES: Moves all 4 extremities spontaneously. Tender to palpate the inferior aspect of the right patella without any bruising. Left ankle is swollen, there is a 3 cm abrasion to the lateral malleolus with 1.5 cm of surrounding erythema, tender to palpate. No lymphangitic streaking. 2+ pitting edema to the BLE. NEUROLOGICAL: Alert and oriented x3. Normal speech. PSYCH: Normal affect, normal mood. SKIN: Warm, dry. Ecchymoses in various stages of healing across the BUE. Various abrasions to the lateral left knee, lateral calf and mid parmar. Fewer scattered abrasions to the RLE. Course - Re-evaluation Re-evalutation: 01/27/19 18:24 CBC shows chronic anemia with hemoglobin 12.5, platelets low at 134, venous blood gas is slightly elevated pH at 7.5 otherwise unremarkable, chemistries show mildly elevated CO2 at 33, no evidence of acute renal failure, no real evidence of dehydration, calcium is markedly improved from discharge at 9.0, magnesium is also significantly improved at 1.3, AST and ALT have both improved to 129 and 75 respectively, CK-MB is elevated 1394 but this is likely related to the recent fall as other cardiac enzymes are normal. Total protein and albumin are normal, urinalysis unremarkable and does not show any ketones or concentrated specific gravity. Chest x-ray shows no acute process. EKG is nonischemic. Patient was ambulated around the emergency department and was unable to make it three quarters away around the department before he became short of breath. Even when he became short of breath and stopped for a rest his heart rate only went to a maximum of 112 bpm and he only went to a low of 94% on room air. Discussed the case with Dr. Simon who had treated him previously in the hospital. Dr. Simon is quite pleased with the improvement in his electrolytes. Discussed with patient the importance of continuing to exercise every day, discussed and appropriate excise size plan to help with the deconditioning that has likely resulted from spending all of his time at his 's bedside either in the hospital or at the skilled nursing. Also discussed with patient that I think he is likely depressed given that his of over 60 years is at a high risk of dying soon. Patient became tearful at this and admitted that he is infected depressed. Encourage patient to follow-up with his primary care ph ysician to discuss antidepressant or with a psychiatrist to discuss counseling and medication therapy. Patient denied suicidal ideation, states he is started eating again and promises to continue to eat. Promises to continue to follow-up with Dr. Monge in the next 2 to 3 weeks as well. 01/27/19 18:28 Left ankle does have evidence of cellulitis surrounding the abrasion, Keflex has been prescribed. - Vital Signs Vital signs: Temp Pulse Resp BP Pulse Ox 98.0 F 98 14 122/67 97 01/27/19 12:16 01/27/19 13:27 01/27/19 16:00 01/27/19 16:01 01/27/19 16:00 - Laboratory Result Diagrams: 01/27/19 13:01 01/27/19 13:01 Laboratory results interpreted by me: 01/27/19 01/27/19 01/27/19 13:01 13:01 13:01 RBC 3.50 L Hgb 12.5 L Hct 36.8 L MCV 105 H MCH 35.8 H RDW 15.4 H Plt Count 134 L Seg Neutrophils % 83.9 H Lymphocytes % 7.9 L Absolute Neutrophils 8.7 H VBG pH Carbon Dioxide 33 H Glucose 117 H Ionized Calcium Miguel Magnesium 1.3 L AST 129 H ALT 75 H Creatine Kinase 1394 H 01/27/19 01/27/19 15:08 15:08 RBC Hgb Hct MCV MCH RDW Plt Count Seg Neutrophils % Lymphocytes % Absolute Neutrophils VBG pH 7.50 H Carbon Dioxide Glucose Ionized Calcium Miguel 1.01 L Magnesium AST ALT Creatine Kinase - EKG Interpretation by Me Additional EKG results interpreted by me: 01/27/19 18:26 EKG shows atrial fibrillation which is rate controlled at a rate of 94, normal axis, normal intervals, rapid R wave progression, no ST segment elevations or depressions, no T wave inversions though there is T wave flattening in lead III which is low voltage per my interpretation. Discharge - Discharge Clinical Impression: Cellulitis of left ankle, Multiple abrasions, Hypomagnesemia, Hypocalcemia, Physical deconditioning, Atrial fibrillation with controlled ventricular rate Depression Qualifiers: Depression Type: reactive depression Qualified Code(s): F32.9 - Major depressive disorder, single episode, unspecified Condition: Stable Disposition: HOME, SELF-CARE Additional Instructions: As we discussed you may continue taking the calcium and vitamin D that you have at home but add Tums 1 tablet 3 times a day instead of taking the calcium plus vitamin D that Dr. Simon. Please take the Keflex as directed until it is gone. This is an antibiotic that will treat the infection on your left ankle. Please return to the emergency department should the redness get bigger and so smaller. You need to make sure you are exercising every day. Please walk as far she can without getting short of breath and then sit down and rest. Please walk like this several times a day. If you develop chest pain please come to the emergency department. As we discussed I am concerned that you are depressed. You agree that you think you are depressed however you are not having thoughts of suicide. It is very important that you follow-up with your primary care physician or with a psychiatrist to discuss possibly taking medication to help with your depression while you are going through so many changes. Prescriptions: Cephalexin Monohydrate [Keflex 500 mg Capsule] 500 mg PO Q6H 7 Days capsule Referrals: SYED MONGE MD [Primary Care Provider] - Follow up as needed I personally performed the services described in the documentation, reviewed and edited the documentation which was dictated to the scribe in my presence, and it accurately records my words and actions.
== END 2019-01-27 19:08 | disposition home or self-care (01) ==
LOC: ER 12:12
DX: L03.116 Cellulitis of left lower limb (principal); E83.42 Hypomagnesemia; E83.51 Hypocalcemia; F32.9 Major depressive disorder, single episode, unspecified; R53.81 Other malaise; I48.91 Unspecified atrial fibrillation; R79.89 Other specified abnormal findings of blood chemistry; E11.9 Type 2 diabetes mellitus without complications; R06.02 Shortness of breath; I10 Essential (primary) hypertension; J44.9 Chronic obstructive pulmonary disease, unspecified
CPT/HCPCS: 93005; 99284; 96361; 96365; 36415; 82553; 82550; 83735; 85025; 80053; 81001; 84484; 82803; 82330; 71046; 93010; A9270; J3475; J7030

== ENCOUNTER 2019-01-30 09:38 | Emergency (ER) | payer MEDICARE, OTHER ==
[2019-01-30 09:49] VITALS: BP 129/62
[2019-01-30] MEDS ORDERED: BACITRACIN ZINC OINTMENT 15 GM TP ONE (09:55)
--- NOTE | 2019-01-30 10:04 | ER Document Report ---
ED Wound - General Chief Complaint: Wound Recheck Stated Complaint: WOUND CHECK Time Seen by Provider: 01/30/19 09:50 Primary Care Provider: Wound Care [Provider Group] - Follow up as needed SYED LOBATO MD [Primary Care Provider] - Follow up as needed Mode of Arrival: Wheelchair Information source: Patient Notes: 78-year-old male presented to ED for dressing change to his left arm and left leg. He has open draining wounds to the left arm just below the elbow and at the left ankle. The left elbow wound is 10 cm x 8 cm no skin and draining. The area to the left lateral knee is 6 cm x 4 cm. There are 4 moderate-sized abrasions and multiple little abrasions in this area there is no redness or inflammation to this area the left ankle wound is 4 x 2 with a scabbed area and a red area about 3 cm surrounding that. Patient is alert oriented respirations regular and unlabored speaking in full sentences. He states he was seen in the emergency room and admitted to the hospital after he fell and then he left AMA on Tuesday. He states he came to the emergency room on Tuesday he had his dressings changed and was started on Keflex. He states he came today because his dressings are fallen off and draining. I have consulted with Dimas Leblanc who has contacted the wound clinic they will call him and set up follow-up appointments. TRAVEL OUTSIDE OF THE [place] IN LAST 30 DAYS: No - HPI Patient complains to provider of: Other - Open draining wound to the left elbow 10 cm x 8 cm bare skin covered with bacitracin, Xeroform, Kerlix, Telfa, then gauze. The left knee has a area 6 cm x 4 cm to the lateral knee that has multiple smaller abrasions in this. The wound to his left ankle is 4 cm x 2 cm with a surrounding area of between 2 and 3 cm that is red. This was dressed as the elbow was. Onset/Duration: Persistent Quality of pain: Achy Severity: Moderate Pain Level: 3 Context: Injury Skin Color: Jacinto, Erythema Associated Symptoms: Drainage, Swelling, Other - Abrasion - Related Data Allergies/Adverse Reactions: No Known Drug Allergies Allergy (Verified 01/30/19 09:43) Past Medical History - General Information source: Patient - Social History Smoking Status: Former Smoker Frequency of alcohol use: Heavy Drug Abuse: None Lives with: Family Family History: Reviewed & Not Pertinent, Malignancy Patient has suicidal ideation: No Patient has homicidal ideation: No - Past Medical History Cardiac Medical History: Reports: Hx Atrial Fibrillation, Hx Hypercholesterolemia, Hx Hypertension - meds x 20 yrs Pulmonary Medical History: Reports: Hx COPD - see cxr, Hx Pneumonia - 2010 EENT Medical History: Reports: None Neurological Medical History: Reports: None Endocrine Medical History: Reports: Hx Diabetes Mellitus Type 2 Renal/ Medical History: Reports: None Malignancy Medical History: Reports None GI Medical History: Reports: None Musculoskeletal Medical History: 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,gout Skin Medical History: Reports Hx Cellulitis Psychiatric Medical History: Reports: Hx Depression Traumatic Medical History: Reports: None Infectious Medical History: Reports: None Past Surgical History: Reports: Hx Appendectomy, Hx Cholecystectomy - Immunizations Hx Diphtheria, Pertussis, Tetanus Vaccination: Yes Hx Pneumococcal Vaccination: 07/11/10 Review of Systems - Review of Systems Constitutional: No symptoms reported EENT: No symptoms reported Cardiovascular: No symptoms reported Respiratory: No symptoms reported Gastrointestinal: No symptoms reported Genitourinary: No symptoms reported Male Genitourinary: No symptoms reported Musculoskeletal: No symptoms reported Skin: Other - Abrasion wounds to the left ankle knee and left arm. Hematologic/Lymphatic: No symptoms reported Neurological/Psychological: No symptoms reported -: Yes All other systems reviewed and negative Physical Exam - Vital signs Vitals: Temp Pulse Resp BP Pulse Ox 98.3 F 79 18 129/62 H 95 01/30/19 09:46 01/30/19 09:46 01/30/19 09:46 01/30/19 09:46 01/30/19 09:46 Interpretation: Normal - General General appearance: Appears well, Alert - HEENT Head: Normocephalic, Atraumatic Eyes: Normal Pupils: PERRL - Respiratory Respiratory status: No respiratory distress Chest status: Nontender Breath sounds: Normal Chest palpation: Normal - Cardiovascular Rhythm: Regular Heart sounds: Normal auscultation Murmur: No - Abdominal Inspection: Normal Distension: No distension Bowel sounds: Normal Tenderness: Nontender Organomegaly: No organomegaly - Back Back: Normal, Nontender - Extremities General upper extremity: Normal inspection, Nontender, Normal color, Normal ROM, Normal temperature General lower extremity: Normal inspection, Nontender, Normal color, Normal ROM, Normal temperature, Normal weight bearing. No: Dasha's sign Elbow: Tender, Other - Open draining wound to the left elbow 10 cm x 8 cm bare skin covered with bacitracin, Xeroform, Kerlix, Telfa, then gauze. Knee: Tender - There is an area 6 cm x 4 cm that has multiple smaller lacerations in this area there is no redness or inflammation to the area Ankle: Tender - The wound to his left ankle is 4 cm x 2 cm with a surrounding area of between 2 and 3 cm that is red. This was dressed as the elbow was. - Neurological Neuro grossly intact: Yes Cognition: Normal Orientation: AAOx4 [place] Coma Scale Eye Opening: Spontaneous [place] Coma Scale Verbal: Oriented [place] Coma Scale Motor: Obeys Commands Lucrecia Coma Scale Total: 15 Speech: Normal Motor strength normal: LUE, RUE, LLE, RLE Sensory: Normal - Psychological Associated symptoms: Normal affect, Normal mood - Skin Skin Temperature: Warm Skin Moisture: Dry Skin Color: Normal Location of irregularity: Extremities - Open draining wound to the left elbow 10 cm x 8 cm red with serous drainage no eschar at this time. The knee has an area of 6 cm x 4 cm that has multiple small abrasions no redness or inflammation.. The wound to his left ankle is 4 cm x 2 cm with a surrounding area of between 2 and 3 cm that is red. Character of irregularity: Erythematous Irregularity with: Swelling, Thickening, Inflammation, Weeping Course - Re-evaluation Re-evalutation: 01/30/19 10:56 Open draining wound to the left elbow 10 cm x 8 cm red with serous drainage no eschar at this time. The knee has an area of 6 cm x 4 cm that has multiple small abrasions no redness or inflammation.. The wound to his left ankle is 4 c m x 2 cm with a surrounding area of between 2 and 3 cm that is red. All wounds were cleaned then dressed with bacitracin, Xeroform, Telfa pad, Kerlix and tape. Patient tolerated well. Patient has been instructed that he will be contacted by the wound clinic and they will be doing his dressings. - Vital Signs Vital signs: Temp Pulse Resp BP Pulse Ox 98.3 F 79 18 129/62 H 95 01/30/19 09:46 01/30/19 09:46 01/30/19 09:46 01/30/19 09:46 01/30/19 09:46 Discharge - Discharge Clinical Impression: open draining wound left elbow, scabbed wound left ankle, Multiple abrasions, Cellulitis of left ankle Open wound of left knee Qualifiers: Encounter type: subsequent encounter Qualified Code(s): S81.002D - Unspecified open wound, left knee, subsequent encounter Condition: Stable Disposition: HOME, SELF-CARE Additional Instructions: Your wound will need to be cleaned well with surgical scrub Rinsed well with saline Bacitracin applied to the wound Xeroform gauze applied over top of the bacitracin Telfa gauze applied to the top of the Xeroform Then wrapped with gauze and tape This will need to be done at least daily The wound care clinic will be calling you to set up an appointment to come in and have your dressings to care for that and monitored These take your antibiotic as was prescribed Keflex. These try to keep these areas clean and dry and do not get them wet during your bathing time FOLLOW-UP CARE: If you have been referred to a physician for follow-up care, call the ysicians office for an appointment as you were instructed or within the next two days. If you experience worsening or a significant change in your symptoms, notify the physician immediately or return to the Emergency Department at any time for re-evaluation. Forms: Elevated Blood Pressure Referrals: SYED LOBATO MD [Primary Care Provider] - Follow up as needed Wound Care [Provider Group] - Follow up as needed
== END 2019-01-30 10:53 | disposition home or self-care (01) ==
LOC: ER 09:38
DX: S81.002D Unspecified open wound, left knee, subsequent encounter (principal); S51.002D Unspecified open wound of left elbow, subsequent encounter; S91.002D Unspecified open wound, left ankle, subsequent encounter; L03.116 Cellulitis of left lower limb; X58.XXXD Exposure to other specified factors, subsequent encounter; I48.91 Unspecified atrial fibrillation; E78.00 Pure hypercholesterolemia, unspecified; I10 Essential (primary) hypertension; J44.9 Chronic obstructive pulmonary disease, unspecified; E11.9 Type 2 diabetes mellitus without complications; Z90.49 Acquired absence of other specified parts of digestive tract
CPT/HCPCS: 99282; J3490

== ENCOUNTER 2019-10-17 11:00 | Emergency (ER) | payer MEDICARE, OTHER ==
--- NOTE | 2019-10-17 11:17 | ER Document Report ---
ED Dizziness/Weakness - General Stated Complaint: DIZZINESS Time Seen by Provider: 10/17/19 11:10 Primary Care Provider: SYED LOBATO MD [Primary Care Provider] - Follow up in 3-5 days Notes: Patient is an 79-year-old male with a history of hypertension who presents to the emergency department with a chief complaint of shortness of breath, dizziness, abdominal pain due to diarrhea. Patient states that he has had his shortness of breath and dizziness for the past 2 weeks. Patient called his primary care provider and he was instructed to come to emergency department to be tested for COVID 19. Patient states that he feels his dizziness is like the world is spinning. TRAVEL OUTSIDE OF THE [place] IN LAST 30 DAYS: No - Related Data Allergies/Adverse Reactions: No Known Drug Allergies Allergy (Verified 10/17/19 11:24) Past Medical History - General Information source: Patient - Social History Smoking Status: Unknown if Ever Smoked Family History: Reviewed & Not Pertinent, Malignancy - Past Medical History Cardiac Medical History: Reports: Hx Atrial Fibrillation, Hx Hypercholesterolemi a, Hx Hypertension - meds x 20 yrs Denies: Hx Coronary Artery Disease, Hx Heart Attack Pulmonary Medical History: Reports: Hx COPD - see cxr, Hx Pneumonia - 2010 Denies: Hx Asthma, Hx Bronchitis Neurological Medical History: Denies: Hx Cerebrovascular Accident, Hx Seizures Endocrine Medical History: Reports: Hx Diabetes Mellitus Type 2 Renal/ Medical History: Denies: Hx End Stage Renal Disease, Hx Peritoneal Dialysis GI Medical History: Denies: Hx Cirrhosis, Hx Diverticulitis, Hx Hiatal Hernia Musculoskeletal Medical History: 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,gout Skin Medical History: Reports Hx Cellulitis Psychiatric Medical History: Reports: Hx Depression Denies: Hx Bipolar Disorder Past Surgical History: Reports: Hx Appendectomy, Hx Cholecystectomy - Immunizations Hx Diphtheria, Pertussis, Tetanus Vaccination: Yes Hx Pneumococcal Vaccination: 07/11/10 Review of Systems - Review of Systems Notes: REVIEW OF SYSTEMS: CONSTITUTIONAL : Denies recent illness. Denies recent unintentional weight loss. Denies fever, chills, or sweats. EENT: Denies eye, ear, throat, or mouth pain, discharge, or symptoms. Denies nasal or sinus congestion. CARDIOVASCULAR: Denies chest pain. RESPIRATORY: See HPI. GASTROINTESTINAL: See HPI. GENITOURINARY: Denies difficulty urinating, burning, blood in urine, urgency or frequency. MUSCULOSKELETAL: Denies neck and back pain. Denies joint pain or swelling. SKIN: Denies rash, itchiness, or lesions HEMATOLOGIC : Denies easy bruising or bleeding. LYMPHATIC: Denies swollen, painful, enlarged glands. NEUROLOGICAL: Denies no numbness or tingling denies weakness. Denies headache. Denies altered mental status. Denies alteration in speech. See HPI. PSYCHIATRIC: Denies stress, anxiety, alteration in sleep patterns, or depression. All other systems reviewed and negative. Physical Exam - Vital signs Vitals: Pulse Resp BP Pulse Ox 82 18 109/55 L 98 10/17/19 11:31 10/17/19 11:31 10/17/19 11:31 10/17/19 11:31 - Notes Notes: PHYSICAL EXAMINATION: GENERAL: Appears well, healthy, well-nourished, no acute distress. HEAD: Normocephalic, atraumatic. EYES: PERRL, conjunctiva normal, all extraocular movements intact, sclera nonicteric ENT: Dry mucous membranes. NECK: Supple, no noticeable swelling, redness, rash. Normal range of motion. LUNGS: Equal breath sounds bilaterally and clear to auscultation. No wheezes rales or rhonchi. CARDIOVASCULAR: S1-S2, regular rate, regular rhythm. Radial pulses 2+, normal. ABDOMEN: Normoactive bowel sounds. Soft, nontender, no guarding, no rebound tenderness, and no masses palpated. EXTREMITIES: Normal strength and range of motion, no pitting or edema. No cyanosis. NEUROLOGICAL: Moves all extremities upon command. Strength 5/5 in all extremities. PSYCH: Normal mood, normal affect. SKIN: Warm, dry. No rash, lesions, ulcerations noted. Normal skin turgor. Course - Re-evaluation Re-evalutation: 10/17/19 14:58 CT of the head shows chronic changes and atrophy with microvascular ischemia, most likely due to the patient's age of 79. Chest x-ray is normal, as per radiologist. I had a very lengthy conversation with the patient in regards to his creatinine being 3.05 and his BUN being 64. Patient received 2 L of IV fluids for his potassium of 6.7. Patient is most likely severely dehydrated. Patient states that he is not dizzy anymore. His hematology is stable and there is not much change from his previous visit in January 2019. Coronavirus test sent, as per the recommendation of Dr. Lobato, the patient's primary care provider. Lactate dehydrogenase and ferritin are normal. I have a low suspicion of coronavirus in this patient. The patient has chosen to leave the facility against medical advice. States that he is the primary caregiver of his , who is currently at home by herself. The relevant issues have been reviewed and discussed with the patient and family at the bedside. At the time of this assessment there is no indication for involuntary commitment. The patient is alert, oriented, and able to express clearly their reasoning for not wanting to remain in the emergency department and be admitted for further treatment. The patient is not clinically psychotic, intoxicated, and denies and suicidal ideation. Differential or suspected diagnoses based on medical screening exam: LETA, hyperkalemia, dehydration, dizziness The patient is aware of the concerning diagnoses and acknowledges understanding of the reasons for the following recommendations: Admission overnight The following recommendations/services were offered and refused: The following risks were explained: , permanent disability, loss of function Clinical impression: Patient is competent to make decisions regarding the medical that is being offered. I called Dr. Lobato's office (Patient's primary care office) and spoke to his medical staff physician to have Dr. Lobato call the patient to see how he is doing since he is deciding to leave against medical advice. Patient is also under quarantine for COVID 19, as he is being tested per recommendations of his primary care provider. - Vital Signs Vital signs: Temp Pulse Resp BP Pulse Ox 98.0 F 82 20 117/78 100 10/17/19 14:00 10/17/19 11:31 10/17/19 14:51 10/17/19 14:51 10/17/19 14:39 - Laboratory Result Diagrams: 10/17/19 11:40 10/17/19 11:40 Laboratory results interpreted by me: 10/17/19 10/17/19 10/17/19 11:40 11:40 14:48 RBC 3.26 L Hgb 12.6 L Hct 36.2 L MCV 111 H MCH 38.6 H RDW 14.4 H Plt Count 123 L Lymph % (Auto) 10.9 L Seg Neutrophils % 82.6 H Sodium 135.6 L Potassium 6.7 H* BUN 64 H Creatinine 3.05 H Est GFR ( Amer) 24 L Est GFR (MDRD) Non-Af 20 L Glucose 124 H Calcium 10.3 H Magnesium 1.5 L Urine Ketones TRACE H Urine Ascorbic Acid 40 H Discharge - Discharge Clinical Impression: Dizziness, Suspected COVID-19 virus infection, Hyperkalemia, Dehydration Hypotension Qualifiers: Hypotension type: unspecified hypotension type Qualified Code(s): I95.9 - Hypotension, unspecified Acute kidney failure Qualifiers: Acute renal failure type: unspecified Qualified Code(s): N17.9 - Acute kidney failure, unspecified Condition: Stable Disposition: AGAINST MEDICAL ADVICE Instructions: Dizziness ([facility]) Additional Instructions: You are seen today in the emergency department for dizziness. You are leaving AGAINST MEDICAL ADVICE. I highly recommend you stay here in the hospital. Your blood pressure was low. Please make sure you follow-up with your primary care provider and see if he can get your labs redrawn. Stop taking your potassium, as your potassium is high. You are also in quarantine for COVID 19 until your labs come back, or 2 weeks visit. If you are any worse, or feel like you are not doing well, please return to the emergency department immediately. Referrals: SYED LOBATO MD [Primary Care Provider] - Follow up in 3-5 days
[2019-10-17 11:53] LABS: ABSOLUTE EOSINOPHILS # (AUTO) 0.1 10^3/uL (0.0-0.6); ABSOLUTE LYMPHOCYTES (AUTO) 0.8 10^3/uL (0.5-4.7); ABSOLUTE MONOCYTES (AUTO) 0.4 10^3/uL (0.1-1.4); ABSOLUTE NEUT (AUTO) 6.4 10^3/uL (1.7-8.2); BASOPHILS % (AUTO) 0.5 % (0-2); EOSINOPHILS % (AUTO) 0.7 % (0-6); HEMATOCRIT 36.2 % (37.9-51.0); HEMOGLOBIN 12.6 g/dL (13.5-17.0); LYMPHOCYTES % (AUTO) 10.9 % (13-45); MEAN CORPUSCULAR HEMOGLOBIN 38.6 pg (27.0-33.4); MEAN CORPUSCULAR HGB CONC 34.7 g/dL (32.0-36.0); MONOCYTES % (AUTO) 5.3 % (3-13); PLATELET COUNT 123 10^3/uL (150-450); RED BLOOD COUNT 3.26 10^6/uL (4.35-5.55); RED CELL DISTRIBUTION WIDTH 14.4 % (11.5-14.0); SEGMENTED NEUTROPHILS % (AUTO) 82.6 % (42-78); TOTAL CELLS COUNTED % (AUTO) 100 %; WHITE BLOOD COUNT 7.7 10^3/uL (4.0-10.5)
[2019-10-17 12:01] LABS: MEAN CORPUSCULAR VOLUME 111 fl (80-97)
[2019-10-17 12:08] LABS: ALBUMIN 4.3 g/dL (3.5-5.0); ALKALINE PHOSPHATASE 76 U/L (38-126); ANION GAP 8 (5-19); ASPARTATE AMINO TRANSFERASE 44 U/L (17-59); BILIRUBIN,DIRECT 0.4 mg/dL (0.0-0.4); BILIRUBIN,TOTAL 0.6 mg/dL (0.2-1.3); BLOOD UREA NITROGEN 64 mg/dL (7-20); CALCIUM 10.3 mg/dL (8.4-10.2); CARBON DIOXIDE 24 mmol/L (22-30); CHLORIDE 104 mmol/L (98-107); GLUCOSE 124 mg/dL (75-110); TOTAL PROTEIN 7.2 g/dL (6.3-8.2)
--- NOTE | 2019-10-17 12:14 | RADIOLOGY REPORT (SQ) ---
EXAM DESCRIPTION: CHEST SINGLE VIEW IMAGES COMPLETED DATE/TIME: 10/17/2019 12:04 pm REASON FOR STUDY: dizziness COMPARISON: 02/04/2019 EXAM PARAMETERS: NUMBER OF VIEWS: One view. TECHNIQUE: Single frontal radiographic view of the chest acquired. RADIATION DOSE: NA LIMITATIONS: None. FINDINGS: LUNGS AND PLEURA: There is hyperexpansion. No consolidation or effusions. No pneumothora x. MEDIASTINUM AND HILAR STRUCTURES: No masses. Contour normal. HEART AND VASCULAR STRUCTURES: Heart normal in size. Normal vasculature. BONES: No acute findings. HARDWARE: None in the chest. OTHER: No other significant finding. IMPRESSION: Hyperexpansion otherwise negative chest. TECHNICAL DOCUMENTATION: JOB ID: [id number] 2010 [employer]- All Rights Reserved Reading location - IP/workstation name: [email or web address]
[2019-10-17 12:17] LABS: POTASSIUM 6.7 mmol/L (3.6-5.0)
[2019-10-17] MEDS ORDERED: NORMAL SALINE 1000 ML 1,000 ML IV ONE ×2 (12:25→13:20)
--- NOTE | 2019-10-17 12:27 | RADIOLOGY REPORT (SQ) ---
EXAM DESCRIPTION: CT HEAD WITHOUT IMAGES COMPLETED DATE/TIME: 10/17/2019 12:17 pm REASON FOR STUDY: dizziness COMPARISON: None. TECHNIQUE: Axial images acquired through the brain without intravenous contrast. Images reviewed wi th bone, brain and subdural windows. Additional sagittal and coronal reconstructions were generated. Images stored on PACS. All CT scanners at this facility use dose modulation, iterative reconstruction, and/or weight based d osing when appropriate to reduce radiation dose to as low as reasonably achievable (ALARA). [facility]: Dose Right [facility]: CareDose [facility]: Dose Right [facility]: Teradose 4D [facility]: Junar RADIATION DOSE: CT Rad equipment meets quality standard of care and radiation dose reduction techniq ues were employed. CTDIvol: 53.2 mGy. DLP: 1070 mGy-cm. mGy. LIMITATIONS: None. FINDINGS: VENTRICLES: Prominent. CEREBRUM: No masses. No hemorrhage. No midline shift. Areas of low density in the white matter mos t likely due to chronic micro-vascular ischemic change. No evidence for acute infarction. CEREBELLUM: No masses. No hemorrhage. No alteration of density. No evidence for acute infarction. EXTRAAXIAL SPACES: Mild age-related involutional change. No fluid collections. No masses. ORBITS AND GLOBE: No intra- or extraconal masses. Normal contour of globe without masses. CALVARIUM: No fracture. PARANASAL SINUSES: Minimal mucosal thickening in the right maxillary sinus. SOFT TISSUES: No mass or hematoma. OTHER: No other significant finding. IMPRESSION: MILD CHRONIC CHANGES OF ATROPHY AND MICROVASCULAR ISCHEMIA. NO ACUTE PROCESS. EVIDENCE OF ACUTE STROKE: NO. TECHNICAL DOCUMENTATION: JOB ID: [id number] Quality ID # [id number]: Final reports with documentation of one or more dose reduction techniques (e.g., Au tomated exposure control, adjustment of the mA and/or kV according to patient size, use of iterative reconstruction technique) 2010 [employer]- All Rights Reserved Reading location - IP/workstation name: [email or web address]
[2019-10-17 12:31] LABS: ANISOCYTOSIS SLIGHT; POIKILOCYTOSIS SLIGHT; STOMATOCYTES SLIGHT; TEAR DROP CELLS SLIGHT
[2019-10-17 12:32] LABS: PLATELET COMMENT DECREASED
[2019-10-17 15:21] VITALS: BP 117/78
[2019-10-17 15:33] LABS: APPEARANCE,URINE CLEAR; BILIRUBIN,URINE NEGATIVE (NEGATIVE); COLOR,URINE YELLOW; GLUCOSE, URINE NEGATIVE (NEGATIVE); KETONES,URINE TRACE mg/dL (NEGATIVE); LEUKOCYTE ESTERASE,URINE NEGATIVE (NEGATIVE); NITRITE,URINE NEGATIVE (NEGATIVE); PROTEIN,URINE NEGATIVE (NEGATIVE); URINE SPECIFIC GRAVITY 1.015; UROBILINOGEN,URINE NEGATIVE mg/dL (<2.0)
--- NOTE | 2019-10-17 21:48 | EKG REPORT ---
SEVERITY:- NORMAL ECG - SINUS RHYTHM : Confirmed by: Roxann Daniels MD 17-Oct-2019 21:47:42
[2019-10-18 11:10] LABS: PATH REVIEW PATHOLOGIST REVIEWED
== END 2019-10-17 15:21 | disposition left against medical advice (07) ==
LOC: ER 11:00
DX: N17.9 Acute kidney failure, unspecified (principal); I95.9 Hypotension, unspecified; E87.5 Hyperkalemia; E86.0 Dehydration; Z20.828 Contact with and (suspected) exposure to other viral communicable diseases; R42 Dizziness and giddiness; R06.02 Shortness of breath; R10.9 Unspecified abdominal pain; R19.7 Diarrhea, unspecified; I10 Essential (primary) hypertension; E11.9 Type 2 diabetes mellitus without complications; I48.91 Unspecified atrial fibrillation; E78.00 Pure hypercholesterolemia, unspecified; Z90.49 Acquired absence of other specified parts of digestive tract
CPT/HCPCS: 93005; 99284; 96360; 96361; 36415; 82728; 83615; 83735; 85025; 87635; 80053; 81001; 71045; 70450; 93010; J7030

== ENCOUNTER → 2020-01-17 | Outpatient (CLI) | payer MEDICARE, OTHER ==
--- NOTE | 2020-01-17 15:47 | RADIOLOGY REPORT (SQ) ---
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 NUMBER OF VIEWS: Three views. TECHNIQUE: AP, lateral, and oblique radiographic images acquired of the right ankle. LIMITATIONS: None. FINDINGS: MINERALIZATION: Normal. BONES: No worrisome lesions. No evidence of osteomyelitis. JOINTS: No effusions. SOFT TISSUES: No soft tissue swelling. No foreign body. OTHER: No other significant finding. IMPRESSION: No evidence of osteomyelitis. TECHNICAL DOCUMENTATION: JOB ID: [id number] 2010 [employer]- All Rights Reserved Reading location - IP/workstation name: [email or web address]
--- NOTE | 2020-01-18 13:35 | RADIOLOGY REPORT (SQ) ---
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 TECHNIQUE: Dynamic and static braden scale and color images acquired of the lower extremity arteries. Additional selected spectral images recorded. LIMITATIONS: Unable to obtain ABIs. FINDINGS: RIGHT LEG: INFLOW ARTERIES: No stenosis. FEMORAL ARTERIES: Triphasic spectral waveforms in the common femoral, proximal profunda femoris, and superficial femoral arteries without a focal velocity elevation to indicate the presence of a stenos is. There is no aneurysm POPLITEAL ARTERY: Triphasic spectral waveforms in the popliteal artery with a PSV of 70 cm/s. PATENT TIBIOPERONEAL TRUNK AND 3 VESSEL RUNOFF: The posterior and anterior tibial arteries are patent with triphasic spectral waveforms and no velocity elevation to indicate the presence of a stenosis. The dorsalis pedis artery is patent with triphasic spectral waveforms and a PSV of 120 cm/s. OTHER: Atheromatous plaque. LEFT LEG: INFLOW ARTERIES: Normal, no obstruction evident. FEMORAL ARTERIES: Multiphasic spectral waveforms in the common femoral, proximal profunda femoris, a nd superficial femoral arteries without a focal velocity elevation to indicate the presence of a sten osis. There is no aneurysm POPLITEAL ARTERY: Triphasic spectral waveforms in the popliteal artery with a PSV of 60 cm/s. PATENT TIBIOPERONEAL TRUNK AND 3 VESSEL RUNOFF: The posterior and anterior tibial arteries are patent with biphasic spectral waveforms and no velocity elevation to indicate the presence of a stenosis. T he dorsalis pedis artery is patent with biphasic spectral waveforms and a PSV of 110 cm/s. OTHER: Atheromatous plaque. IMPRESSION: NO HEMODYNAMICALLY SIGNIFICANT STENOSIS. TECHNICAL DOCUMENTATION: JOB ID: [id number] 2010 [employer]- All Rights Reserved Reading location - IP/workstation name: [email or web address]
== END ==
LOC: SP 13:55
PROVIDERS: ATTEND Nurse Practitioner Family
DX: E11.622 Type 2 diabetes mellitus with other skin ulcer (principal); L97.312 Non-pressure chronic ulcer of right ankle with fat layer exposed
CPT/HCPCS: 93922; 93925

== ENCOUNTER → 2020-01-22 | Outpatient (CLI) | payer MEDICARE, OTHER ==
[2020-01-22 10:40] LABS: ABSOLUTE EOSINOPHILS # (AUTO) 0.1 10^3/uL (0.0-0.6); ABSOLUTE LYMPHOCYTES (AUTO) 1.1 10^3/uL (0.5-4.7); ABSOLUTE MONOCYTES (AUTO) 0.8 10^3/uL (0.1-1.4); ABSOLUTE NEUT (AUTO) 9.1 10^3/uL (1.7-8.2); BASOPHILS % (AUTO) 0.4 % (0-2); EOSINOPHILS % (AUTO) 1.2 % (0-6); HEMATOCRIT 43.1 % (37.9-51.0); HEMOGLOBIN 14.3 g/dL (13.5-17.0); LYMPHOCYTES % (AUTO) 9.6 % (13-45); MEAN CORPUSCULAR HEMOGLOBIN 36.3 pg (27.0-33.4); MEAN CORPUSCULAR HGB CONC 33.1 g/dL (32.0-36.0); MEAN CORPUSCULAR VOLUME 110 fl (80-97); MONOCYTES % (AUTO) 6.8 % (3-13); PLATELET COUNT 133 10^3/uL (150-450); RED BLOOD COUNT 3.93 10^6/uL (4.35-5.55); TOTAL CELLS COUNTED % (AUTO) 100 %; WHITE BLOOD COUNT 11.1 10^3/uL (4.0-10.5)
[2020-01-22 11:11] LABS: ALBUMIN 3.9 g/dL (3.5-5.0); ALKALINE PHOSPHATASE 105 U/L (38-126); ASPARTATE AMINO TRANSFERASE 40 U/L (17-59); BILIRUBIN,DIRECT 0.1 mg/dL (0.0-0.4); BILIRUBIN,TOTAL 0.7 mg/dL (0.2-1.3); BLOOD UREA NITROGEN 12 mg/dL (7-20); C-REACTIVE PROTEIN 6.6 mg/L (<10.0); CALCIUM 9.8 mg/dL (8.4-10.2); GLUCOSE 102 mg/dL (75-110); POTASSIUM 5.5 mmol/L (3.6-5.0); TOTAL PROTEIN 6.8 g/dL (6.3-8.2)
[2020-01-22 11:15] LABS: ANION GAP 6 (5-19); CARBON DIOXIDE 31 mmol/L (22-30); CHLORIDE 100 mmol/L (98-107)
[2020-01-22 11:19] LABS: ERYTHROCYTE SEDIMENTATION RATE 11 mm/hr (0-20)
== END ==
LOC: WC 10:00
PROVIDERS: ATTEND Nurse Practitioner Family
DX: E11.622 Type 2 diabetes mellitus with other skin ulcer (principal); L97.312 Non-pressure chronic ulcer of right ankle with fat layer exposed
CPT/HCPCS: 36415; 80053; 83036; 85025; 85652; 86140

== ENCOUNTER → 2020-03-11 | Outpatient (CLI) | payer MEDICARE, OTHER ==
[2020-03-11 12:34] LABS: ABSOLUTE EOSINOPHILS # (AUTO) 0.1 10^3/uL (0.0-0.6); ABSOLUTE LYMPHOCYTES (AUTO) 1.4 10^3/uL (0.5-4.7); ABSOLUTE MONOCYTES (AUTO) 0.8 10^3/uL (0.1-1.4); BASOPHILS % (AUTO) 0.4 % (0-2); EOSINOPHILS % (AUTO) 0.9 % (0-6); HEMATOCRIT 32.7 % (37.9-51.0); HEMOGLOBIN 11.1 g/dL (13.5-17.0); LYMPHOCYTES % (AUTO) 13.5 % (13-45); MEAN CORPUSCULAR HEMOGLOBIN 37.2 pg (27.0-33.4); MEAN CORPUSCULAR VOLUME 110 fl (80-97); MONOCYTES % (AUTO) 7.8 % (3-13); PLATELET COUNT 201 10^3/uL (150-450); RED BLOOD COUNT 2.98 10^6/uL (4.35-5.55); SEGMENTED NEUTROPHILS % (AUTO) 77.4 % (42-78); TOTAL CELLS COUNTED % (AUTO) 100 %; WHITE BLOOD COUNT 10.4 10^3/uL (4.0-10.5)
[2020-03-11 12:47] LABS: BLOOD UREA NITROGEN 34 mg/dL (7-20); CALCIUM 10.1 mg/dL (8.4-10.2); GLUCOSE 91 mg/dL (75-110)
[2020-03-11 12:48] LABS: ALBUMIN 4.1 g/dL (3.5-5.0); ALKALINE PHOSPHATASE 97 U/L (38-126); ANION GAP 10 (5-19); ASPARTATE AMINO TRANSFERASE 43 U/L (17-59); BILIRUBIN,DIRECT 0.5 mg/dL (0.0-0.4); BILIRUBIN,TOTAL 0.6 mg/dL (0.2-1.3); C-REACTIVE PROTEIN 8.6 mg/L (<10.0); CARBON DIOXIDE 26 mmol/L (22-30); CHLORIDE 100 mmol/L (98-107); POTASSIUM 5.6 mmol/L (3.6-5.0); TOTAL PROTEIN 6.7 g/dL (6.3-8.2)
--- NOTE | 2020-03-11 13:00 | RADIOLOGY REPORT (SQ) ---
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 TECHNIQUE: AP, lateral, and oblique radiographic images acquired of the right ankle. LIMITATIONS: None. FINDINGS: MINERALIZATION: Normal. BONES: No acute fracture or dislocation. No evidence of osteomyelitis. Plantar calcaneal spur. JOINTS: No effusions. SOFT TISSUES: No soft tissue swelling. No foreign body. OTHER: No other significant finding. IMPRESSION: No osteomyelitis. Calcaneal spur. TECHNICAL DOCUMENTATION: JOB ID: [id number] 2010 [employer]- All Rights Reserved Reading location - IP/workstation name: [email or web address]
[2020-03-11 13:13] LABS: ERYTHROCYTE SEDIMENTATION RATE 29 mm/hr (0-20)
== END ==
LOC: WC 11:34
PROVIDERS: ATTEND Nurse Practitioner Family
DX: E11.622 Type 2 diabetes mellitus with other skin ulcer (principal); L97.312 Non-pressure chronic ulcer of right ankle with fat layer exposed; M77.31 Calcaneal spur, right foot
CPT/HCPCS: 36415; 80053; 85025; 85652; 86140

== ENCOUNTER 2020-04-17 22:46 | Inpatient (IN) | payer MEDICARE, OTHER ==
--- NOTE | 2020-04-17 23:08 | ER Document Report ---
ED General - General Chief Complaint: Hip Pain Stated Complaint: HIP PAIN Time Seen by Provider: 04/17/20 22:54 Notes: Patient is an 80 year old male that comes to the Emergency Department for chief complaint of an episode where he became dizzy when he got up to go to the bathroom and fell. Patient complains of left knee and left hip pain. He also states he has an abrasion on his left mid arm from the fall. He denies hitting his head, chest pain, shortness of breath, headache, focal numbness or weakness. He is not on a blood thinner. He comes from home by EMS. Past medical history of hypertension, paroxysmal A. fib, chronic back pain. TRAVEL OUTSIDE OF THE [place] IN LAST 30 DAYS: No - Related Data Allergies/Adverse Reactions: No Known Drug Allergies Allergy (Verified 10/17/19 11:24) Past Medical History - General Information source: Patient - Social History Smoking Status: Never Smoker Frequency of alcohol use: None Drug Abuse: None Lives with: Alone Family History: Reviewed & Not Pertinent, Malignancy - Past Medical History Cardiac Medical History: Reports: Hx Atrial Fibrillation, Hx Hypercholesterolemia, Hx Hypertension - meds x 20 yrs Denies: Hx Coronary Artery Disease, Hx Heart Attack Pulmonary Medical History: Reports: Hx COPD - see cxr, Hx Pneumonia - 2010 Denies: Hx Asthma, Hx Bronchitis Neurological Medical History: Denies: Hx Cerebrovascular Accident, Hx Seizures Endocrine Medical History: Reports: Hx Diabetes Mellitus Type 2 Renal/ Medical History: Denies: Hx End Stage Renal Disease, Hx Peritoneal Dialysis GI Medical History: Denies: Hx Cirrhosis, Hx Diverticulitis, Hx Hiatal Hernia Musculoskeletal Medical History: 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,gout Skin Medical History: Reports Hx Cellulitis Psychiatric Medical History: Reports: Hx Depression Denies: Hx Bipolar Disorder Past Surgical History: Reports: Hx Appendectomy, Hx Cholecystectomy - Immunizations Hx Diphtheria, Pertussis, Tetanus Vaccination: Yes Hx Pneumococcal Vaccination: 07/11/10 Review of Systems - Review of Systems Constitutional: See HPI EENT: No symptoms reported Cardiovascular: See HPI Respiratory: No symptoms reported Gastrointestinal: No symptoms reported Genitourinary: No symptoms reported Male Genitourinary: No symptoms reported Musculoskeletal: See HPI Skin: See HPI Hematologic/Lymphatic: No symptoms reported Neurological/Psychological: No symptoms reported Physical Exam - Vital signs Vitals: Temp 98.2 F 04/17/20 22:47 - Notes Notes: GENERAL: Alert and interactive, slightly uncomfortable in appearance but not in severe distress HEAD: Normocephalic, atraumatic. EYES: Pupils equal, round, and reactive to light. Extraocular movements intact. ENT: Oral mucosa moist, tongue midline. Oropharynx unremarkable. Airway patent. NECK: Full range of motion. Supple. Trachea midline. No lymphadenopathy. LUNGS: Clear to auscultation bilaterally, no wheezes, rales, or rhonchi. No respiratory distress. Non-tender chest wall. No signs of trauma. HEART: Regular rate and rhythm. No murmur ABDOMEN: Soft, non-tender. Non-distended. EXTREMITIES: Tenderness over the left anterior and lateral proximal hip/thigh area. Tender over the left knee although there is no severe tenderness or signs of trauma. There is a skin abrasion over the left mid lateral arm, elbow and shoulder are unremarkable, wrist unremarkable, normal distal neurovascular exam of upper and lower extremities, otherwise unremarkable. BACK: no cervical, thoracic, lumbar midline tenderness. No saddle anesthesia, normal distal neurovascular exam. No signs of trauma. Moves all extremities in full range of motion. NEUROLOGICAL: Alert and oriented x3. Normal speech. Cranial nerves II through XII grossly intact. Strength 5/5 in all extremities. PSYCH: Normal affect, normal mood. SKIN: Warm, dry, normal turgor. No rashes or lesions noted. Course - Re-evaluation Re-evalutation: Patient with skin abrasion to the left mid arm, tenderness over the left hip and knee especially over the left hip, no other signs of trauma. Patient is noted to have atrial fibrillation, occasionally he jumps up to greater than 120 bpm but quickly drops back down again. He does not have chest pain, shortness of breath, or any other current symptoms. Chest x-ray unremarkable, left hip shows intra-trochanteric fracture, CBC, chemistry nonspecific, troponin and EKG nonspecific. I discussed with patient, will discuss with hospitalist for admission because of his hip fracture, atrial fibrillation, and advanced age. Patient states understanding and agreement. Discussed with Dr. Simon, he will accept patient for full admission, will discuss with orthopedics. Discussed with Dr. Stiles, orthopedic surgeon, he requests patient be kept n.p.o., requests for me to place a consult form so he can find the patient, requests that I speak with Dr. Simon and discuss patient being medically cleared for surgery today. I discussed the conversation with Dr. Simon. - Vital Signs Vital signs: Temp Pulse Resp BP Pulse Ox 98.4 F 13 150/86 H 95 04/18/20 01:30 04/18/20 03:00 04/18/20 03:00 04/18/20 03:00 - Laboratory Result Diagrams: 04/17/20 23:07 04/17/20 23:07 Laboratory results interpreted by me: 04/17/20 04/17/20 23:07 23:07 RBC 3.25 L Hgb 12.2 L Hct 35.1 L MCV 108 H MCH 37.7 H RDW 14.7 H Plt Count 130 L Seg Neutrophils % 78.3 H Sodium 133.9 L Chloride 96 L Glucose 113 H Direct Bilirubin 0.5 H - EKG Interpretation by Me Additional EKG results interpreted by me: EKG shows atrial fibrillation at a rate of 88, QTc 412, normal axis, no T wave inversions or ST segment changes in consecutive leads Discharge - Discharge Clinical Impression: Skin abrasion Fall Qualifiers: Encounter type: initial encounter Qualified Code(s): W19.XXXA - Unspecified fall, initial encounter Closed left hip fracture Qualifiers: Encounter type: initial encounter Qualified Code(s): S72.002A - Fracture of unspecified part of neck of left femur, initial encounter for closed fracture Left knee pain Qualifiers: Chronicity: acute Qualified Code(s): M25.562 - Pain in left knee Atrial fibrillation Qualifiers: Atrial fibrillation type: unspecified Qualified Code(s): I48.91 - Unspecified atrial fibrillation Condition: Stable Disposition: ADMITTED INPATIENT Admitting Provider: [facility] (Hospitalist) Unit Admitted: Telemetry
[2020-04-17 23:33] LABS: ABSOLUTE LYMPHOCYTES (AUTO) 0.8 10^3/uL (0.5-4.7); ABSOLUTE MONOCYTES (AUTO) 0.4 10^3/uL (0.1-1.4); ABSOLUTE NEUT (AUTO) 4.8 10^3/uL (1.7-8.2); BASOPHILS % (AUTO) 0.6 % (0-2); EOSINOPHILS % (AUTO) 0.5 % (0-6); HEMATOCRIT 35.1 % (37.9-51.0); HEMOGLOBIN 12.2 g/dL (13.5-17.0); LYMPHOCYTES % (AUTO) 13.5 % (13-45); MEAN CORPUSCULAR HEMOGLOBIN 37.7 pg (27.0-33.4); MEAN CORPUSCULAR HGB CONC 34.9 g/dL (32.0-36.0); MEAN CORPUSCULAR VOLUME 108 fl (80-97); MONOCYTES % (AUTO) 7.1 % (3-13); PLATELET COUNT 130 10^3/uL (150-450); RED BLOOD COUNT 3.25 10^6/uL (4.35-5.55); RED CELL DISTRIBUTION WIDTH 14.7 % (11.5-14.0); SEGMENTED NEUTROPHILS % (AUTO) 78.3 % (42-78); TOTAL CELLS COUNTED % (AUTO) 100 %; WHITE BLOOD COUNT 6.2 10^3/uL (4.0-10.5)
[2020-04-17 23:38] LABS: ALBUMIN 3.9 g/dL (3.5-5.0); ALKALINE PHOSPHATASE 116 U/L (38-126); ANION GAP 14 (5-19); ASPARTATE AMINO TRANSFERASE 38 U/L (17-59); BILIRUBIN,DIRECT 0.5 mg/dL (0.0-0.4); BILIRUBIN,TOTAL 0.5 mg/dL (0.2-1.3); BLOOD UREA NITROGEN 13 mg/dL (7-20); CALCIUM 9.2 mg/dL (8.4-10.2); CARBON DIOXIDE 24 mmol/L (22-30); CHLORIDE 96 mmol/L (98-107); GLUCOSE 113 mg/dL (75-110); POTASSIUM 4.1 mmol/L (3.6-5.0); TOTAL PROTEIN 6.7 g/dL (6.3-8.2)
--- NOTE | 2020-04-17 23:59 | RADIOLOGY REPORT (SQ) ---
2 VIEWS LEFT HIP 2 VIEWS LEFT KNEE HISTORY: Trauma. COMPARISON: None. FINDINGS: There is an acute mildly displaced and comminuted fracture involving the intertrochanteric region of the proximal left femur. No hip joint dislocation. No acute fracture is seen in the left knee. Generalized osteopenia is present. Vascular calcifications are present. The surrounding soft tissues are swollen. IMPRESSION: 1. Acute left femoral intertrochanteric fracture. 2. No acute fracture of the left knee.
[2020-04-18] MEDS ORDERED: ONDANSETRON HCL INJ/PF 4 MG/2 ML SDV IV ONE (00:12)
[2020-04-18] MEDS ORDERED: MORPHINE SULFATE 10 MG/ML INJ IV ONE (00:12)
[2020-04-18] MEDS ORDERED: HYDROMORPHONE HCL INJ/PF 2 MG/ML AMPULE IV ONE (01:37)
--- NOTE | 2020-04-18 01:48 | RADIOLOGY REPORT (SQ) ---
EXAM DESCRIPTION: XR CHEST 1 VIEW COMPLETED DATE/TME: 04/18/2020 00:07 CLINICAL HISTORY: 80 years, Male, weakness COMPARISON: 10/17/2019 NUMBER OF VIEWS: One TECHNIQUE: AP view the chest LIMITATIONS: None. FINDINGS: Lungs are clear. The heart is normal in size. No pneumothorax or pleural effusion. Bones are demineralized. IMPRESSION: No acute cardiopulmonary abnormality copyright 2010 [employer]- All Rights Reserved
[2020-04-18] MEDS ORDERED: ACETAMINOPHEN 325 MG TABLET PO PRN (04:05)
[2020-04-18] MEDS ORDERED: DEXTROSE 40% GEL 15 GM TUBE PO PRN ×2 (04:05)
[2020-04-18] MEDS ORDERED: RINGERS SOLUTION,LACTATED 1,000 ML IV PRN (04:05)
[2020-04-18] MEDS ORDERED: ONDANSETRON HCL INJ/PF 4 MG/2 ML SDV IV PRN ×2 (04:05→17:09)
[2020-04-18] MEDS ORDERED: MAGNESIUM HYDROXIDE SUSP 30 ML UDCUP PO PRN (04:05)
[2020-04-18] MEDS ORDERED: DEXTROSE 50%-WATER 25 GM/50 ML DISP.SYRIN IV PRN ×2 (04:05)
[2020-04-18] MEDS ORDERED: GLUCAGON,HUMAN RECOMB 1 MG INJ SUBCUT PRN (04:05)
[2020-04-18] MEDS ORDERED: MAG HYDROX/AL HYDROX/SIMETH SUSP 30 ML UDCUP PO PRN (04:05)
--- NOTE | 2020-04-18 04:05 | PDOC H&P ---
History of Present Illness Admission Date/PCP: 04/18/20 03:47 Patient complains of: Mechanical fall with fractured left hip History of Present Illness: TOMI BOX is a 80 year old male who states that he got up to go to the bathroom and fell. He fell 3 weeks ago and hurt his right side but there was no fracture. Today he fell and hit his left side and has suffered a mildly displaced and comminuted left intertrochanteric fracture. The emergency department provider has spoken to orthopedic surgery and they wish to keep the patient n.p.o. for surgical intervention later today. The patient does have a history of hypertension and atrial fibrillation. He also carries diagnoses of COPD, type 2 diabetes mellitus, gout, polyarthralgias and sciatica. He is being seen at the wound care clinic for a right lateral malleolus wound that he reports sustaining when he hit his ankle on a piece of furniture in the bedroom. He has a history of very thin skin with easy bruising. Unfortunately his 3 weeks ago. His plans are to move back to [place] to an assisted living facility. He did mention that he is very concerned about his cats who are home with no unable to take care of them. His pain is currently reasonably controlled. The emergency department physician spoke with orthopedic surgery. The patient was kept n.p.o. for possible surgical repair today. Past Medical History Cardiac Medical History: Reports: Atrial Fibrillation, Hyperlipidema, Hypertension - meds x 20 yrs Denies: Coronary Artery Disease, Myocardial Infarction Pulmonary Medical History: Reports: Chronic Obstructive Pulmonary Disease (COPD) - see cxr, Pneumonia - 2010 Denies: Asthma, Bronchitis Neurological Medical History: Denies: Seizures Endocrine Medical History: Reports: Diabetes Mellitus Type 2 Renal/ Medical History: Denies: End Stage Renal Disease GI Medical History: Denies: Cirrhosis, Diverticulitis, Hiatal Hernia Musculoskeltal Medical History: Reports: Arthritis - shoulder,gout Skin Medical History: Reports: Other - Thin skin Psychiatric Medical History: Reports: Depression Denies: Bipolar Disorder Hematology: Denies: Anemia - Patient is not sure about the history of, Bleeding Tendencies, Heparin Induced Thrombocytopenia Past Surgical History Past Surgical History: Reports: Appendectomy, Cholecystectomy Social History Information Source: Patient, [facility] Records Lives with: Alone - Recently . His 3 weeks ago. Smoking Status: Former Smoker Electronic Cigarette use?: No Frequency of Alcohol Use: Heavy - The patient has a glass of whiskey every day. He describes what may likely be 3 to 4 ounces daily Hx Recreational Drug Use: No Drugs: None Hx Prescription Drug Abuse: No - Advance Directive Resuscitation Status: Do Not Resuscitate Family History Family History: DM, Malignancy, Other - Gout Parental Family History Reviewed: Yes Children Family History Reviewed: NA Sibling(s) Family History Reviewed.: Yes Medication/Allergy Home Medications: Allopurinol [Zyloprim 100 mg Tablet] 100 mg PO DAILY 05/08/11 Hydrochlorothiazide [Hydrodiuril 25 mg Tablet] 25 mg PO QAM 05/08/11 Simvastatin [Zocor 40 mg Tablet] 40 mg PO QHS 05/08/11 Cetirizine HCl [Zyrtec 10 mg Tablet] 10 mg PO DAILY 10/23/15 Aspirin [Gena Advanced] 500 mg PO DAILYP PRN 01/23/19 Aspirin [Ecotrin 81 mg EC Tablet] 81 mg PO DAILY 01/23/19 Atenolol [Tenormin 50 mg Tablet] 50 mg PO DAILY 01/23/19 Atorvastatin Calcium [Lipitor 40 mg Tablet] 40 mg PO QHS 01/23/19 Ferrous Sulfate [Feosol 325 mg Tablet] 325 mg PO DAILY 01/23/19 Lisinopril [Prinivil 10 mg Tablet] 20 mg PO Q12 01/23/19 Multivitamin [Tab-A-Treasure (Multiple Vitamin) Tablet] 1 tab PO DAILY 01/23/19 Naproxen [Naprosyn] 500 mg PO Q12 01/23/19 Oxycodone HCl/Acetaminophen [Percocet 10-325 mg Tablet] 1 each PO QHS 01/23/19 Potassium Chloride [Klor-Con 10 Meq Tablet ER] 10 meq PO BID 01/23/19 Sitagliptin Phosphate [Januvia 50 mg Tablet] 50 mg PO DAILY 01/23/19 Acetaminophen [Tylenol 325 mg Tablet] 650 mg PO Q4HP PRN tablet 01/25/19 Calcium Carbonate/Vitamin D3 [Os-Lyle 250 mg with Vitamin D 125 Units] 2 tab PO BID 30 Days #120 tablet 01/25/19 Magnesium Oxide [Mag-Ox 400 mg Tablet] 400 mg PO MEALS 30 Days #90 tablet 01/25/19 Calcium Carbonate/Vitamin D3 [Caltrate 600 + D Tablet] 1 each PO BID 30 Days #60 tablet 01/26/19 Cephalexin Monohydrate [Keflex 500 mg Capsule] 500 mg PO Q6H 7 Days capsule 01/27/19 Allergies/Adverse Reactions: No Known Drug Allergies Allergy (Verified 10/17/19 11:24) Review of Systems All systems: reviewed and no additional remarkable complaints except as stated Cardiovascular: PRESENT: edema Musculoskeletal: PRESENT: other - Left hip pain Psychiatric: PRESENT: depression Physical Exam Vital Signs: Temp Pulse Resp BP Pulse Ox 98.4 F 13 150/86 H 95 04/18/20 01:30 04/18/20 03:00 04/18/20 03:00 04/18/20 03:00 General appearance: PRESENT: cooperative, mild distress, well-developed, well- nourished Head exam: PRESENT: atraumatic, normocephalic Eye exam: PRESENT: conjunctiva pink, EOMI, PERRLA. ABSENT: scleral icterus Ear exam: PRESENT: normal external ear exam. ABSENT: bleeding, drainage Mouth exam: PRESENT: dry mucosa, tongue midline Throat exam: ABSENT: post pharyngeal erythema, tonsillar exudate Neck exam: ABSENT: carotid bruit, JVD, lymphadenopathy, tracheostomy Respiratory exam: PRESENT: clear to auscultation jae, symmetrical, unlabored. ABSENT: rales, rhonchi, tachypnea, wheezes Cardiovascular exam: PRESENT: irregular rhythm. ABSENT: bradycardia, diastolic murmur, systolic murmur, tachycardia Pulses: PRESENT: normal radial pulses, normal dorsalis pedis pul GI/Abdominal exam: PRESENT: normal bowel sounds, soft, other - Protuberant abdomen. ABSENT: guarding, tenderness Rectal exam: PRESENT: deferred Gentrourinary exam: ABSENT: indwelling catheter Extremities exam: PRESENT: pedal edema - Trace. ABSENT: full ROM Musculoskeletal exam: ABSENT: ambulatory Neurological exam: PRESENT: alert, awake, oriented to person, oriented to place, oriented to time, oriented to situation, CN II-XII grossly intact. ABSENT: altered Psychiatric exam: PRESENT: appropriate affect. ABSENT: agitated, anxious Focused psych exam: ABSENT: delusional, paranoid, restlessness Skin exam: PRESENT: skin tears - Left elbow, other - Wound dressing right lateral malleolus. Kerlix gauze left elbow. Diffuse bruising arms Results Laboratory Results: 04/17/20 23:07 04/17/20 23:07 04/17/20 04/17/20 04/17/20 23:07 23:07 23:07 WBC 6.2 RBC 3.25 L Hgb 12.2 L Hct 35.1 L MCV 108 H MCH 37.7 H MCHC 34.9 RDW 14.7 H Plt Count 130 L Seg Neutrophils % 78.3 H Sodium 133.9 L Potassium 4.1 Chloride 96 L Carbon Dioxide 24 Anion Gap 14 BUN 13 Creatinine 1.14 Est GFR ( Amer) > 60 Glucose 113 H Calcium 9.2 Magnesium 1.6 Total Bilirubin 0.5 AST 38 Alkaline Phosphatase 116 Total Protein 6.7 Albumin 3.9 TSH 1.36 04/17/20 23:07 Troponin I < 0.012 Impressions: Hip X-Ray 04/17/20 23:02 IMPRESSION: 1. Acute left femoral intertrochanteric fracture. 2. No acute fracture of the left knee. Knee X-Ray 04/17/20 23:02 IMPRESSION: 1. Acute left femoral intertrochanteric fracture. 2. No acute fracture of the left knee. Chest X-Ray 04/18/20 00:07 IMPRESSION: No acute cardiopulmonary abnormality copyright 2011 [employer]- All Rights Reserved Assessment and Plan - Diagnosis (1) Closed intertrochanteric fracture of left hip Qualifiers: Encounter type: initial encounter Fracture alignment: displaced Qualified Code(s): S72.142A - Displaced intertrochanteric fracture of left femur, initial encounter for closed fracture Is this a current diagnosis for this admission?: Yes Plan: 04/18/2020-patient will be seen by Dr. Stiles. He was kept n.p.o. for likely surgical repair today. He is not on anticoagulation chronically so nothing needs to be held for surgery. He will need the normal postoperative prophylaxis. (2) Longstanding persistent atrial fibrillation Is this a current diagnosis for this admission?: Yes Plan: Continue atenolol and monitor on telemetry (3) Hypercholesterolemia Is this a current diagnosis for this admission?: Yes Plan: Continue simvastatin (4) Hyperglycemia due to type 2 diabetes mellitus Qualifiers: Diabetes mellitus emt intermediate insulin use: without emt intermediate use Qualified Code(s): E11.65 - Type 2 diabetes mellitus with hyperglycemia Is this a current diagnosis for this admission?: Yes Plan: The patient is on Januvia. When his diet is restarted controlled carbohydrate diet. Currently on Accu-Cheks every 6 with sliding scale. (5) Hyperlipidemia Qualifiers: Hyperlipidemia type: unspecified Qualified Code(s): E78.5 - Hyperlipidemia, unspecified Is this a current diagnosis for this admission?: Yes Plan: Continue simvastatin - Time Time Spent with patient: 35 or more minutes Medications reviewed and adjusted accordingly: Yes Anticipated Discharge Disposition: Home with Home Health Anticipated Discharge Timeframe: Within 96 hours - Inpatient Certification Based on my medical assessment, after consideration of the patient's comorbidities, presenting symptoms, or acuity I expect that the services needed warrant INPATIENT care.: Yes I certify that my determination is in accordance with my understanding of Medicare's requirements for reasonable and necessary INPATIENT services [42 CFR 412.3e].: Yes Medical Necessity: Need For IV Fluids, Need for Pain Control, Need for Surgery Post Hospital Care: D/C or Transfer Summary
[2020-04-18] MEDS: PANTOPRAZOLE SODIUM 40 MG TABLET.DR PO SCH (05:34)
[2020-04-18 06:06] LABS: ABSOLUTE LYMPHOCYTES (AUTO) 1.6 10^3/uL (0.5-4.7); ABSOLUTE MONOCYTES (AUTO) 0.8 10^3/uL (0.1-1.4); ABSOLUTE NEUT (AUTO) 6.7 10^3/uL (1.7-8.2); BASOPHILS % (AUTO) 0.4 % (0-2); EOSINOPHILS % (AUTO) 0.5 % (0-6); HEMATOCRIT 31.9 % (37.9-51.0); HEMOGLOBIN 11.3 g/dL (13.5-17.0); LYMPHOCYTES % (AUTO) 17.6 % (13-45); MEAN CORPUSCULAR HEMOGLOBIN 37.7 pg (27.0-33.4); MEAN CORPUSCULAR HGB CONC 35.4 g/dL (32.0-36.0); MEAN CORPUSCULAR VOLUME 107 fl (80-97); MONOCYTES % (AUTO) 8.3 % (3-13); PLATELET COUNT 119 10^3/uL (150-450); RED BLOOD COUNT 2.99 10^6/uL (4.35-5.55); RED CELL DISTRIBUTION WIDTH 14.6 % (11.5-14.0); SEGMENTED NEUTROPHILS % (AUTO) 73.2 % (42-78); TOTAL CELLS COUNTED % (AUTO) 100 %; WHITE BLOOD COUNT 9.2 10^3/uL (4.0-10.5)
[2020-04-18 06:10] LABS: INTERNATIONAL RATION (INR) 1.13; PROTHROMBIN TIME 14.7 SEC (11.4-15.4)
[2020-04-18 06:11] LABS: PARTIAL THROMBOPLASTIN TIME 29.4 SEC (23.5-35.8)
[2020-04-18 06:29] LABS: ANION GAP 8 (5-19); BLOOD UREA NITROGEN 13 mg/dL (7-20); CALCIUM 9.2 mg/dL (8.4-10.2); CARBON DIOXIDE 27 mmol/L (22-30); CHLORIDE 99 mmol/L (98-107); GLUCOSE 97 mg/dL (75-110); POTASSIUM 4.2 mmol/L (3.6-5.0)
[2020-04-18] MEDS: INSULIN LISPRO 100 UNIT/ML 3 ML VIAL SUBCUT SCH ×3 (07:02→17:42)
--- NOTE | 2020-04-18 07:20 | PDOC H&P ---
History of Present Illness Admission Date/PCP: 04/18/20 03:47 Patient complains of: Left hip pain following a fall at home History of Present Illness: TOMI BOX is a 80 year old male who presented to the emergency department last evening following a low-energy fall onto his left side resulting in a displaced fracture of the left hip in the intertrochanteric region. The patient became lightheaded when he went to the bathroom. The patient states that he has experienced multiple falls recently. His 3 weeks ago and he lives alone. He is mostly concerned about his cats. His sister is coming from [place] on Tuesday. Past Medical History Cardiac Medical History: Reports: Atrial Fibrillation, Hyperlipidema, Hypertension - meds x 20 yrs Denies: Coronary Artery Disease, Myocardial Infarction Pulmonary Medical History: Reports: Chronic Obstructive Pulmonary Disease (COPD) - see cxr, Pneumonia - 2010 Denies: Asthma, Bronchitis Neurological Medical History: Denies: Seizures Endocrine Medical History: Reports: Diabetes Mellitus Type 2 Renal/ Medical History: Denies: End Stage Renal Disease GI Medical History: Denies: Cirrhosis, Diverticulitis, Hiatal Hernia Musculoskeltal Medical History: Reports: Arthritis - shoulder,gout Psychiatric Medical History: Reports: Depression Denies: Bipolar Disorder Hematology: Denies: Anemia - Patient is not sure about the history of, Bleeding Te ndencies, Heparin Induced Thrombocytopenia Past Surgical History Past Surgical History: Reports: Appendectomy, Cholecystectomy Social History Lives with: Alone - Recently . His 3 weeks ago. Smoking Status: Former Smoker Electronic Cigarette use?: No Frequency of Alcohol Use: Heavy - The patient has a glass of whiskey every day. He describes what may likely be 3 to 4 ounces daily Hx Recreational Drug Use: No Drugs: None Hx Prescription Drug Abuse: No - Advance Directive Resuscitation Status: Do Not Resuscitate Family History Family History: DM, Malignancy, Other - Gout Parental Family History Reviewed: Yes Children Family History Reviewed: No Sibling(s) Family History Reviewed.: Yes Medication/Allergy Home Medications: Allopurinol [Zyloprim 100 mg Tablet] 100 mg PO DAILY 05/08/11 Hydrochlorothiazide [Hydrodiuril 25 mg Tablet] 25 mg PO QAM 05/08/11 Simvastatin [Zocor 40 mg Tablet] 40 mg PO QHS 05/08/11 Cetirizine HCl [Zyrtec 10 mg Tablet] 10 mg PO DAILY 10/23/15 Aspirin [Gena Advanced] 500 mg PO DAILYP PRN 01/23/19 Aspirin [Ecotrin 81 mg EC Tablet] 81 mg PO DAILY 01/23/19 Atenolol [Tenormin 50 mg Tablet] 50 mg PO DAILY 01/23/19 Atorvastatin Calcium [Lipitor 40 mg Tablet] 40 mg PO QHS 01/23/19 Ferrous Sulfate [Feosol 325 mg Tablet] 325 mg PO DAILY 01/23/19 Lisinopril [Prinivil 10 mg Tablet] 20 mg PO Q12 01/23/19 Multivitamin [Tab-A-Treasure (Multiple Vitamin) Tablet] 1 tab PO DAILY 01/23/19 Naproxen [Naprosyn] 500 mg PO Q12 01/23/19 Oxycodone HCl/Acetaminophen [Percocet 10-325 mg Tablet] 1 each PO QHS 01/23/19 Potassium Chloride [Klor-Con 10 Meq Tablet ER] 10 meq PO BID 01/23/19 Sitagliptin Phosphate [Januvia 50 mg Tablet] 50 mg PO DAILY 01/23/19 Acetaminophen [Tylenol 325 mg Tablet] 650 mg PO Q4HP PRN tablet 01/25/19 Calcium Carbonate/Vitamin D3 [Os-Lyle 250 mg with Vitamin D 125 Units] 2 tab PO BID 30 Days #120 tablet 01/25/19 Magnesium Oxide [Mag-Ox 400 mg Tablet] 400 mg PO MEALS 30 Days #90 tablet 01/25/19 Calcium Carbonate/Vitamin D3 [Caltrate 600 + D Tablet] 1 each PO BID 30 Days #60 tablet 01/26/19 Cephalexin Monohydrate [Keflex 500 mg Capsule] 500 mg PO Q6H 7 Days capsule 01/27/19 Allergies/Adverse Reactions: No Known Drug Allergies Allergy (Verified 10/17/19 11:24) Review of Systems Musculoskeletal: PRESENT: other - There is a wound on the right ankle which is being treated by the wound clinic. Physical Exam Vital Signs: Temp Pulse Resp BP Pulse Ox 98.4 F 13 150/86 H 95 04/18/20 01:30 04/18/20 03:00 04/18/20 03:00 04/18/20 03:00 General appearance: PRESENT: no acute distress, well-developed, well-nourished Head exam: PRESENT: atraumatic, normocephalic Neck exam: PRESENT: full ROM Respiratory exam: PRESENT: clear to auscultation jae. ABSENT: rales, rhonchi, wheezes Cardiovascular exam: PRESENT: irregular rhythm, +S1, +S2 GI/Abdominal exam: PRESENT: normal bowel sounds, soft. ABSENT: distended, guarding, mass, organolmegaly, rebound, tenderness Rectal exam: PRESENT: deferred Musculoskeletal exam: PRESENT: other - There is normal alignment of the left leg. There is discomfort with any attempted rotation of the left hip. The nik ent is able to dorsiflex and plantarflex the foot. 2+ DP pulse is present. The PT pulse is not palpable. Sensation is intact to touch. Neurological exam: PRESENT: alert, awake, oriented to person, oriented to place, oriented to time, oriented to situation, CN II-XII grossly intact. ABSENT: motor sensory deficit Psychiatric exam: PRESENT: appropriate affect, normal mood. ABSENT: homicidal ideation, suicidal ideation Results Laboratory Results: 04/18/20 05:06 04/18/20 05:06 04/17/20 04/17/20 04/17/20 23:07 23:07 23:07 WBC 6.2 RBC 3.25 L Hgb 12.2 L Hct 35.1 L MCV 108 H MCH 37.7 H MCHC 34.9 RDW 14.7 H Plt Count 130 L Seg Neutrophils % 78.3 H Sodium 133.9 L Potassium 4.1 Chloride 96 L Carbon Dioxide 24 Anion Gap 14 BUN 13 Creatinine 1.14 Est GFR ( Amer) > 60 Glucose 113 H Calcium 9.2 Magnesium 1.6 Total Bilirubin 0.5 AST 38 Alkaline Phosphatase 116 Total Protein 6.7 Albumin 3.9 TSH 1.36 04/18/20 04/18/20 05:06 05:06 WBC 9.2 RBC 2.99 L Hgb 11.3 L Hct 31.9 L MCV 107 H MCH 37.7 H MCHC 35.4 RDW 14.6 H Plt Count 119 L Seg Neutrophils % 73.2 Sodium 133.7 L Potassium 4.2 Chloride 99 Carbon Dioxide 27 Anion Gap 8 BUN 13 Creatinine 0.99 Est GFR ( Amer) > 60 Glucose 97 Calcium 9.2 Magnesium 1.5 L Total Bilirubin AST Alkaline Phosphatase Total Protein Albumin TSH 04/17/20 23:07 Troponin I < 0.012 Impressions: Hip X-Ray 04/17/20 23:02 IMPRESSION: 1. Acute left femoral intertrochanteric fracture. 2. No acute fracture of the left knee. Knee X-Ray 04/17/20 23:02 IMPRESSION: 1. Acute left femoral intertrochanteric fracture. 2. No acute fracture of the left knee. Chest X-Ray 04/18/20 00:07 IMPRESSION: No acute cardiopulmonary abnormality copyright 2011 [employer]- All Rights Reserved Assessment & Plan - Diagnosis (1) Closed intertrochanteric fracture of left hip Is this a current diagnosis for this admission?: Yes (2) Atrial fibrillation Qualifiers: Atrial fibrillation type: unspecified Qualified Code(s): I48.91 - Unspecified atrial fibrillation Is this a current diagnosis for this admission?: Yes - Time Time Spent: 30 to 50 Minutes Anticipated Discharge Disposition: Custodial Facility Anticipated Discharge Timeframe: within 72 hours - Plan Summary Plan Summary: The patient has sustained a displaced fracture of the left hip in the intertrochanteric region. I have recommended open reduction internal fixation with a cephalo-medullary gamma nail. Risk, benefits, and alternatives were discussed with the patient. An opportunity for questions was provided. All questions were answered to his satisfaction. In particular we discussed the risk of with anesthesia, the risk of infection, the risk of injury to nerves and vessels, malunion, nonunion, and the possible need for additional surgical procedures. We also discussed blood loss and the possible need for blood transfusion. Patient expressed understanding and wishes to proceed with surgery.
[2020-04-18] MEDS: MORPHINE SULFATE 10 MG/ML INJ IV PRN ×3 (08:59→18:55)
[2020-04-18] MEDS ORDERED: ATENOLOL 50 MG TABLET PO SCH (10:00)
[2020-04-18] MEDS: DOCUSATE SODIUM 100 MG CAPSULE PO SCH ×2 (10:13→17:42)
[2020-04-18] MEDS: SERTRALINE HCL 50 MG TABLET PO SCH (10:15)
[2020-04-18] MEDS ORDERED: SUCCINYLCHOLINE CHLORIDE INJ 200 MG/10 ML VIAL ONE (10:24)
[2020-04-18] MEDS ORDERED: MAGNESIUM SULFATE 4 GM/100 ML RTUPB IV ONE (10:30)
[2020-04-18] MEDS ORDERED: KETOROLAC TROMETHAMINE 60 MG/2 ML SDV ONE (14:51)
[2020-04-18] MEDS ORDERED: MIDAZOLAM 2 MG/2 ML INJ ONE (14:52)
[2020-04-18] MEDS ORDERED: DEXAMETHASONE SOD PHOSPHATE INJ 4 MG/1 ML VIAL ONE (14:52)
[2020-04-18] MEDS ORDERED: FENTANYL CITRATE INJ/PF 100 MCG/2 ML AMPUL ONE ×2 (14:52→18:18)
[2020-04-18] MEDS ORDERED: PROPOFOL INJ 200 MG/20 ML VIAL IV ONE (14:52)
[2020-04-18] MEDS ORDERED: ONDANSETRON HCL INJ/PF 4 MG/2 ML SDV ONE (14:52)
[2020-04-18] MEDS ORDERED: CEFAZOLIN INJ 1 GM VIAL ONE (16:52)
[2020-04-18] MEDS ORDERED: OXYCODONE-ACETAMINOPHEN 5-325 MG TABLET PO PRN ×2 (17:09)
[2020-04-18] MEDS ORDERED: DIPHENHYDRAMINE HCL 50 MG/ML VIAL IV PRN (17:09)
[2020-04-18] MEDS ORDERED: PROMETHAZINE HCL INJ 25 MG/1 ML VIAL IV PRN ×2 (17:09)
[2020-04-18] MEDS ORDERED: MEPERIDINE HCL/PF INJ 25 MG/1 ML DISP.SYRIN IV PRN (17:09)
[2020-04-18] MEDS ORDERED: FENTANYL CITRATE INJ/PF 100 MCG/2 ML AMPUL IV PRN ×2 (17:09)
[2020-04-18] MEDS: TAMSULOSIN HCL 0.4 MG CAP.SR.24H PO SCH (17:42)
--- NOTE | 2020-04-18 18:19 | Operative Report ---
Operative Report DATE OF SURGERY: 04/18/20 PREOPERATIVE DIAGNOSIS: Left hip displaced intertrochanteric fracture POSTOPERATIVE DIAGNOSIS: Left hip displaced intertrochanteric fracture OPERATION: Open reduction internal fixation left hip intertrochanteric fracture with cephalo-medullary gamma nail SURGEON: ESTHER DUBOSE ANESTHESIA: GA COMPLICATIONS: None ESTIMATED BLOOD LOSS: 100 cc PROCEDURE: Indications for procedure: The patient is an 80-year-old man who sustained a low-energy fall at home resulting in a displaced intertrochanteric fracture of the left hip. Description of procedure: Following induction of general anesthetic and administration of 2 g of Ancef, the patient was positioned supine on the fracture table. All bony prominences were padded. Traction was applied to the left lower extremity to realign the leg. Intensification was brought in which confirmed reduction of the fracture. Left lower extremity sterilely prepped with ChloraPrep and draped in standard fashion. Incision was made proximal to the trochanter. Guidewire was placed in its proper location and driven into the proximal femur. Guidewire was overreamed. Long guidewire was placed centrally within the femoral canal. Its length was measured. Guidewire was overreamed to a size 13. 11 mm gamma nail was placed. With the outrigger guide from the gamma nail a guidewire was placed centrally within the head. Its position was checked under image intensification. It was then overreamed. An appropriate length screw was placed to be within 5 mm of the femoral head. It was locked dynamically. Intensification was brought in which confirmed anatomic reduction of the fracture and correct placement of implants. The wounds were copiously ir rigated. Fascia was reapproximated with 2-0 Vicryl. Subcutaneous tissue was closed with 2-0 Vicryl. The skin was closed with a running subcuticular 3-0 barbed suture and over closed with sterile glue. A sterile dressing was then applied. The patient tolerated procedure well without complication was brought recovery in stable condition.
[2020-04-18] MEDS: FENTANYL CITRATE INJ/PF 100 MCG/2 ML AMPUL IV PRN ×2 (18:20→18:25)
[2020-04-18] MEDS ORDERED: DILTIAZEM HCL INJ 25 MG/5 ML VIAL ONE (18:41)
[2020-04-18] MEDS ORDERED: MORPHINE SULFATE 10 MG/ML INJ ONE (18:42)
[2020-04-18] MEDS: DILTIAZEM HCL INJ 25 MG/5 ML VIAL IV PRN ×2 (18:55→19:00)
[2020-04-18] MEDS ORDERED: RINGERS SOLUTION,LACTATED 1,000 ML IV ONE (19:15)
[2020-04-18] MEDS ORDERED: METOPROLOL TARTRATE PF/INJ 5 MG/5 ML SDV IV ONE ×2 (19:29→19:45)
[2020-04-18] MEDS: SIMVASTATIN 40 MG TABLET PO SCH (21:07)
--- NOTE | 2020-04-18 21:17 | RADIOLOGY REPORT (SQ) ---
EXAM DESCRIPTION: XR HIP INTRAOPERATIVE 33 views COMPLETED DATE/TME: 04/18/2020 00:00 CLINICAL HISTORY: 80 years, Male, HIP NAILING WITH C-ARM ASSISTANCE COMPARISON: None. NUMBER OF VIEWS: TECHNIQUE: LIMITATIONS: None. FINDINGS: Fluoroscopic guidance was utilized for open reduction and internal fixation of a left hip intertrochanteric fracture. Multiple images were obtained throughout the procedure. 0.9 minutes of fluoroscopy time were utilized. IMPRESSION: Fluoroscopic guidance was utilized for open reduction and internal fixation of a left hip intertrochanteric fracture. copyright 2010 [employer]- All Rights Reserved
[2020-04-18] MEDS ORDERED: METOPROLOL TARTRATE PF/INJ 5 MG/5 ML SDV IV PRN (21:43)
[2020-04-18] MEDS ORDERED: METOPROLOL TARTRATE 25 MG TABLET PO ONE (22:00)
[2020-04-19] MEDS: MORPHINE SULFATE 10 MG/ML INJ IV PRN ×4 (00:32→19:53)
[2020-04-19] MEDS: INSULIN LISPRO 100 UNIT/ML 3 ML VIAL SUBCUT SCH ×4 (00:42→18:08)
--- NOTE | 2020-04-19 00:52 | EKG REPORT ---
SEVERITY:- ABNORMAL ECG - ATRIAL FIBRILLATION : Confirmed by: Roxann Daniels MD 19-Apr-2020 00:51:55
[2020-04-19] MEDS: CEFAZOLIN SODIUM 2 GM in DEXTROSE 5%-WATER 100 ML IV SCH ×3 (04:08→17:23)
[2020-04-19] MEDS: PANTOPRAZOLE SODIUM 40 MG TABLET.DR PO SCH (05:19)
[2020-04-19 06:01] LABS: ABSOLUTE LYMPHOCYTES (AUTO) 0.7 10^3/uL (0.5-4.7); ABSOLUTE MONOCYTES (AUTO) 0.7 10^3/uL (0.1-1.4); ABSOLUTE NEUT (AUTO) 6.8 10^3/uL (1.7-8.2); BASOPHILS % (AUTO) 0.1 % (0-2); EOSINOPHILS % (AUTO) 0.1 % (0-6); HEMATOCRIT 26.7 % (37.9-51.0); MEAN CORPUSCULAR HEMOGLOBIN 37.7 pg (27.0-33.4); MEAN CORPUSCULAR HGB CONC 34.5 g/dL (32.0-36.0); MEAN CORPUSCULAR VOLUME 109 fl (80-97); MONOCYTES % (AUTO) 8.6 % (3-13); PLATELET COUNT 101 10^3/uL (150-450); RED BLOOD COUNT 2.44 10^6/uL (4.35-5.55); RED CELL DISTRIBUTION WIDTH 14.8 % (11.5-14.0); SEGMENTED NEUTROPHILS % (AUTO) 83.2 % (42-78); TOTAL CELLS COUNTED % (AUTO) 100 %; WHITE BLOOD COUNT 8.1 10^3/uL (4.0-10.5)
[2020-04-19 06:11] LABS: HEMOGLOBIN 9.2 g/dL (13.5-17.0)
[2020-04-19 06:13] LABS: ANION GAP 7 (5-19); BLOOD UREA NITROGEN 15 mg/dL (7-20); CALCIUM 8.5 mg/dL (8.4-10.2); CARBON DIOXIDE 28 mmol/L (22-30); CHLORIDE 101 mmol/L (98-107); GLUCOSE 136 mg/dL (75-110); POTASSIUM 4.6 mmol/L (3.6-5.0)
[2020-04-19] MEDS ORDERED: TRANEXAMIC ACID INJ/PF 1,000 MG/10 ML SDV IV ONE (08:00)
[2020-04-19] MEDS ORDERED: INFLUENZA QUAD (6MOS+) 2020-21 VAC 0.5 ML SYR IM ONE (08:00)
--- NOTE | 2020-04-19 08:52 | RADIOLOGY REPORT (SQ) ---
EXAM DESCRIPTION: NO G FLUORO IMAGES COMPLETED DATE/TIME: 04/18/2020 6:20 pm REASON FOR STUDY: HIP NAILING WITH C-ARM ASSISTANCE COMPARISON: None. FLUOROSCOPY TIME: Less than one hour. 0.9 minutes LIMITATIONS: None. PROCEDURE: Fluoroscopy was provided for intraprocedural guidance. No images were stored in the PACS system. IMPRESSION: Intraprocedural fluoroscopy was provided. No images were stored in the PACS system. Please Correlate with the procedure report. COMMENT: Quality ID [id number]: Final reports for procedures using fluoroscopy that document radiation exp osure indices, or exposure time and number of fluorographic images (if radiation exposure indices are not available) TECHNICAL DOCUMENTATION: JOB ID: [id number] 2010 [employer] All Rights Reserved Reading location - IP/workstation name: [email or web address]
[2020-04-19] MEDS ORDERED: METOPROLOL SUCCINATE 50 MG TAB.SR.24H PO SCH (10:00)
[2020-04-19] MEDS: ASPIRIN 325 MG TABLET, ENT COATED PO SCH (10:14)
[2020-04-19] MEDS: SERTRALINE HCL 50 MG TABLET PO SCH (10:14)
[2020-04-19] MEDS: ACETAMINOPHEN 325 MG TABLET PO SCH ×4 (10:15→23:14)
[2020-04-19] MEDS: OXYCODONE HCL IR 5 MG TABLET PO PRN ×2 (10:40→21:38)
[2020-04-19] MEDS: TAMSULOSIN HCL 0.4 MG CAP.SR.24H PO SCH (17:23)
--- NOTE | 2020-04-19 17:45 | PDOC PROGRESS REPORT ---
Subjective Progress Note for:: 04/19/20 Subjective:: Pain improved compared with prior to surgery. Patient is concerned about his cats. Reason For Visit: LEFT INTERTROCHANTERIC FRACTURE, ATRIAL POD #1 s/p ORIF left intertrochanteric fracture with Gamma nail Physical Exam Vital Signs: Temp Pulse Resp BP Pulse Ox 98.8 F 91 18 109/60 91 L 04/19/20 15:05 04/19/20 15:05 04/19/20 15:05 04/19/20 15:05 04/19/20 15:05 Intake & Output 04/18/20 04/19/20 04/20/20 06:59 06:59 06:59 Intake Total 3685 Output Total 400 Balance 3285 Weight 104.9 kg Respiratory exam: PRESENT: clear to auscultation jae. ABSENT: rales, rhonchi, wheezes Musculoskeletal exam: PRESENT: other - The surgical incisions are intact. There is no evidence of infection. Patient is able to DF and PF the foot. Sensation is intact. Results Laboratory Results: 04/19/20 05:32 04/19/20 05:32 04/19/20 04/19/20 05:32 05:32 WBC 8.1 RBC 2.44 L Hgb 9.2 L D Hct 26.7 L MCV 109 H MCH 37.7 H MCHC 34.5 RDW 14.8 H Plt Count 101 L Seg Neutrophils % 83.2 H Sodium 136.3 L Potassium 4.6 Chloride 101 Carbon Dioxide 28 Anion Gap 7 BUN 15 Creatinine 0.95 Est GFR ( Amer) > 60 Glucose 136 H Calcium 8.5 Magnesium 2.1 04/17/20 23:07 Troponin I < 0.012 Impressions: Knee X-Ray 04/17/20 23:02 IMPRESSION: 1. Acute left femoral intertrochanteric fracture. 2. No acute fracture of the left knee. Fluoroscopy 04/18/20 00:00 IMPRESSION: Intraprocedural fluoroscopy was provided. No images were stored in the PACS system. Please Correlate with the procedure report. Hip X-Ray 04/18/20 00:00 IMPRESSION: Fluoroscopic guidance was utilized for open reduction and internal fixation of a left hip intertrochanteric fracture. copyright 2010 [employer]- All Rights Reserved Chest X-Ray 04/18/20 00:07 IMPRESSION: No acute cardiopulmonary abnormality copyright 2010 [employer]- All Rights Reserved Assessment & Plan - Diagnosis (1) Closed intertrochanteric fracture of left hip Qualifiers: Encounter type: initial encounter Fracture alignment: displaced Qualified Code(s): S72.142A - Displaced intertrochanteric fracture of left femur, initial encounter for closed fracture Is this a current diagnosis for this admission?: Yes (2) Atrial fibrillation Qualifiers: Atrial fibrillation type: unspecified Qualified Code(s): I48.91 - Unspecified atrial fibrillation Is this a current diagnosis for this admission?: Yes - Time Critical Time spent with patient: Less than 15 minutes Anticipated Discharge Disposition: [facility] Facility Anticipated Discharge Timeframe: within 48 hours - Plan Summary Plan Summary: POD # 1 s/p ORIF left hip intertrochanteric fracture with Gamma nail Acute Blood loss anemia: check HB/HCT in AM 24 hours perioperative antibiotics DVT Prophylaxis: SCD/ASA. Patient is relatively thrombocytopenic therefor formulations of heparin are contraindicated. I spoke with the nurse this morning regarding the importance of SCDs as the patient had not yet received them. Physical therapy: WBAT with assist device Dispo: Patient is stable from orthopedic standpoint. As long as patient does nor require transfusion for ABLA, anticipate discharge to SNF. I did discuss dispo with the patient's brother, Nick, yesterday who believes that his brother would benefit from short term SNF placement.
--- NOTE | 2020-04-19 18:58 | PDOC PROGRESS REPORT ---
Subjective Progress Note for:: 04/19/20 Subjective:: NAEO Reason For Visit: LEFT INTERTROCHANTERIC FRACTURE, ATRIAL Physical Exam Vital Signs: Temp Pulse Resp BP Pulse Ox 98.8 F 91 18 109/60 91 L 04/19/20 15:05 04/19/20 15:05 04/19/20 15:05 04/19/20 15:05 04/19/20 15:05 Intake & Output 04/18/20 04/19/20 04/20/20 06:59 06:59 06:59 Intake Total 3685 Output Total 400 Balance 3285 Weight 104.9 kg General appearance: PRESENT: no acute distress Eye exam: ABSENT: scleral icterus Throat exam: ABSENT: post pharyngeal erythema Neck exam: ABSENT: JVD Respiratory exam: PRESENT: unlabored Cardiovascular exam: PRESENT: RRR GI/Abdominal exam: PRESENT: normal bowel sounds, soft Extremities exam: ABSENT: pedal edema Neurological exam: PRESENT: alert, awake Psychiatric exam: PRESENT: appropriate affect Results Laboratory Results: 04/19/20 05:32 04/19/20 05:32 04/19/20 04/19/20 05:32 05:32 WBC 8.1 RBC 2.44 L Hgb 9.2 L D Hct 26.7 L MCV 109 H MCH 37.7 H MCHC 34.5 RDW 14.8 H Plt Count 101 L Seg Neutrophils % 83.2 H Sodium 136.3 L Potassium 4.6 Chloride 101 Carbon Dioxide 28 Anion Gap 7 BUN 15 Creatinine 0.95 Est GFR ( Amer) > 60 Glucose 136 H Calcium 8.5 Magnesium 2.1 04/17/20 23:07 Troponin I < 0.012 Impressions: Knee X-Ray 04/17/20 23:02 IMPRESSION: 1. Acute left femoral intertrochanteric fracture. 2. No acute fracture of the left knee. Fluoroscopy 04/18/20 00:00 IMPRESSION: Intraprocedural fluoroscopy was provided. No images were stored in the PACS system. Please Correlate with the procedure report. Hip X-Ray 04/18/20 00:00 IMPRESSION: Fluoroscopic guidance was utilized for open reduction and internal fixation of a left hip intertrochanteric fracture. copyright 2010 [employer]- All Rights Reserved Chest X-Ray 04/18/20 00:07 IMPRESSION: No acute cardiopulmonary abnormality copyright 2010 [employer]- All Rights Reserved Assessment and Plan - Diagnosis (1) Atrial fibrillation Qualifiers: Atrial fibrillation type: unspecified Qualified Code(s): I48.91 - Unspecified atrial fibrillation Is this a current diagnosis for this admission?: Yes (2) COPD (chronic obstructive pulmonary disease) Qualifiers: COPD type: unspecified COPD Qualified Code(s): J44.9 - Chronic obstructive pulmonary disease, unspecified Is this a current diagnosis for this admission?: Yes (3) Closed intertrochanteric fracture of left hip Qualifiers: Encounter type: initial encounter Fracture alignment: displaced Qualified Code(s): S72.142A - Displaced intertrochanteric fracture of left femur, initial encounter for closed fracture Is this a current diagnosis for this admission?: Yes (4) Fall Qualifiers: Encounter type: initial encounter Qualified Code(s): W19.XXXA - Unspecified fall, initial encounter Is this a current diagnosis for this admission?: Yes (5) Hyperglycemia due to type 2 diabetes mellitus Qualifiers: Diabetes mellitus longterm insulin use: without ocean transportation intermediary use Qualified Code(s): E11.65 - Type 2 diabetes mellitus with hyperglycemia Is this a current diagnosis for this admission?: Yes (6) Hyperlipidemia Qualifiers: Hyperlipidemia type: unspecified Qualified Code(s): E78.5 - Hyperlipidemia, unspecified Is this a current diagnosis for this admission?: Yes - Plan Summary Summary: (1) Closed intertrochanteric fracture of left hip - management per Dr. Stiles - PT (2) Longstanding persistent atrial fibrillation - Continue metoprolol and monitor on telemetry - not on AC due to frequent falls (3) Hypercholesterolemia - Continue simvastatin (4) Hyperglycemia due to type 2 diabetes mellitus - The patient is on Januvia at home. When his diet is restarted controlled carbohydrate diet. - Time Time Spent with patient: 25-34 minutes Anticipated Discharge Disposition: Assisted Facility Anticipated Discharge Timeframe: within 48 hours
[2020-04-19] MEDS: SIMVASTATIN 40 MG TABLET PO SCH (21:38)
[2020-04-20] MEDS: INSULIN LISPRO 100 UNIT/ML 3 ML VIAL SUBCUT SCH ×3 (00:33→13:36)
[2020-04-20] MEDS: MORPHINE SULFATE 10 MG/ML INJ IV PRN (04:08)
[2020-04-20] MEDS: ACETAMINOPHEN 325 MG TABLET PO SCH ×3 (05:50→21:48)
[2020-04-20 05:51] LABS: ABSOLUTE BASOPHILS # (AUTO) 0.1 10^3/uL (0.0-0.2); ABSOLUTE EOSINOPHILS # (AUTO) 0.3 10^3/uL (0.0-0.6); ABSOLUTE LYMPHOCYTES (AUTO) 1.2 10^3/uL (0.5-4.7); ABSOLUTE MONOCYTES (AUTO) 0.6 10^3/uL (0.1-1.4); ABSOLUTE NEUT (AUTO) 6.5 10^3/uL (1.7-8.2); BASOPHILS % (AUTO) 0.7 % (0-2); EOSINOPHILS % (AUTO) 3.2 % (0-6); HEMATOCRIT 25.6 % (37.9-51.0); HEMOGLOBIN 8.8 g/dL (13.5-17.0); LYMPHOCYTES % (AUTO) 14.1 % (13-45); MEAN CORPUSCULAR HEMOGLOBIN 37.6 pg (27.0-33.4); MEAN CORPUSCULAR HGB CONC 34.3 g/dL (32.0-36.0); MEAN CORPUSCULAR VOLUME 110 fl (80-97); MONOCYTES % (AUTO) 6.7 % (3-13); PLATELET COUNT 100 10^3/uL (150-450); RED BLOOD COUNT 2.33 10^6/uL (4.35-5.55); RED CELL DISTRIBUTION WIDTH 15.3 % (11.5-14.0); SEGMENTED NEUTROPHILS % (AUTO) 75.3 % (42-78); TOTAL CELLS COUNTED % (AUTO) 100 %; WHITE BLOOD COUNT 8.6 10^3/uL (4.0-10.5)
[2020-04-20] MEDS: PANTOPRAZOLE SODIUM 40 MG TABLET.DR PO SCH (05:51)
[2020-04-20] MEDS: OXYCODONE HCL IR 5 MG TABLET PO PRN ×3 (07:50→22:20)
[2020-04-20] MEDS: TRAMADOL HCL 50 MG TABLET PO PRN ×2 (09:19→20:06)
[2020-04-20] MEDS: METOPROLOL SUCCINATE 50 MG TAB.SR.24H PO SCH (09:19)
[2020-04-20] MEDS: ASPIRIN 325 MG TABLET, ENT COATED PO SCH (09:20)
[2020-04-20] MEDS: SERTRALINE HCL 50 MG TABLET PO SCH (09:20)
--- NOTE | 2020-04-20 15:36 | PDOC PROGRESS REPORT ---
Subjective Progress Note for:: 04/20/20 Subjective:: NAEO. Has not had a BM. PT is going well. Pain is controlled. Reason For Visit: LEFT INTERTROCHANTERIC FRACTURE, ATRIAL Physical Exam Vital Signs: Temp Pulse Resp BP Pulse Ox 98.6 F 99 20 107/74 92 04/20/20 11:30 04/20/20 11:30 04/20/20 11:30 04/20/20 11:30 04/20/20 11:30 Intake & Output 04/19/20 04/20/20 04/21/20 06:59 06:59 06:59 Intake Total 3685 0 Output Total 400 200 Balance 3285 -200 Weight 104.9 kg 108.1 kg General appearance: PRESENT: no acute distress, cooperative Eye exam: ABSENT: scleral icterus Mouth exam: PRESENT: moist Throat exam: ABSENT: post pharyngeal erythema Neck exam: ABSENT: JVD Respiratory exam: PRESENT: clear to auscultation jae, unlabored Cardiovascular exam: PRESENT: RRR GI/Abdominal exam: PRESENT: normal bowel sounds, soft. ABSENT: tenderness Extremities exam: ABSENT: pedal edema Neurological exam: PRESENT: alert, awake, oriented to person, oriented to place, oriented to time, oriented to situation Psychiatric exam: PRESENT: appropriate affect Skin exam: ABSENT: rash Results Laboratory Results: 04/20/20 05:37 04/19/20 05:32 04/20/20 05:37 WBC 8.6 RBC 2.33 L Hgb 8.8 L Hct 25.6 L MCV 110 H MCH 37.6 H MCHC 34.3 RDW 15.3 H Plt Count 100 L Seg Neutrophils % 75.3 04/17/20 23:07 Troponin I < 0.012 Impressions: Knee X-Ray 04/17/20 23:02 IMPRESSION: 1. Acute left femoral intertrochanteric fracture. 2. No acute fracture of the left knee. Fluoroscopy 04/18/20 00:00 IMPRESSION: Intraprocedural fluoroscopy was provided. No images were stored in the PACS system. Please Correlate with the procedure report. Hip X-Ray 04/18/20 00:00 IMPRESSION: Fluoroscopic guidance was utilized for open reduction and internal fixation of a left hip intertrochanteric fracture. copyright 2010 [facility]- All Rights Reserved Chest X-Ray 10/09/20 00:07 IMPRESSION: No acute cardiopulmonary abnormality copyright 2011 [facility]- All Rights Reserved Assessment and Plan - Diagnosis (1) Atrial fibrillation Qualifiers: Atrial fibrillation type: unspecified Qualified Code(s): I48.91 - Unspecified atrial fibrillation Is this a current diagnosis for this admission?: Yes (2) COPD (chronic obstructive pulmonary disease) Qualifiers: COPD type: unspecified COPD Qualified Code(s): J44.9 - Chronic obstructive pulmonary disease, unspecified Is this a current diagnosis for this admission?: Yes (3) Closed intertrochanteric fracture of left hip Qualifiers: Encounter type: initial encounter Fracture alignment: displaced Qualified Code(s): S72.142A - Displaced intertrochanteric fracture of left femur, initial encounter for closed fracture Is this a current diagnosis for this admission?: Yes (4) Fall Qualifiers: Encounter type: initial encounter Qualified Code(s): W19.XXXA - Unspecified fall, initial encounter Is this a current diagnosis for this admission?: Yes (5) Hyperglycemia due to type 2 diabetes mellitus Qualifiers: Diabetes mellitus senior care insulin use: without senior care use Qualified Code(s): E11.65 - Type 2 diabetes mellitus with hyperglycemia Is this a current diagnosis for this admission?: Yes (6) Hyperlipidemia Qualifiers: Hyperlipidemia type: unspecified Qualified Code(s): E78.5 - Hyperlipidemia, unspecified Is this a current diagnosis for this admission?: Yes - Plan Summary Summary: (1) Closed intertrochanteric fracture of left hip - management per Dr. Stiles - PT daily (2) Longstanding persistent atrial fibrillation - Continue metoprolol and monitor on telemetry - not on AC due to frequent falls, continue high dose ASA (3) Hypercholesterolemia - Continue simvastatin (4) type 2 diabetes mellitus - glucose well controlled, DC SSI - Time Time Spent with patient: 25-34 minutes Anticipated Discharge Disposition: [facility] Anticipated Discharge Timeframe: within 24 hours
[2020-04-20] MEDS: TAMSULOSIN HCL 0.4 MG CAP.SR.24H PO SCH (18:47)
[2020-04-20] MEDS: SIMVASTATIN 40 MG TABLET PO SCH (21:48)
[2020-04-21] MEDS: TRAMADOL HCL 50 MG TABLET PO PRN ×2 (01:46→10:16)
[2020-04-21 05:34] LABS: HEMATOCRIT 23.8 % (37.9-51.0); HEMOGLOBIN 8.1 g/dL (13.5-17.0); MEAN CORPUSCULAR HEMOGLOBIN 37.6 pg (27.0-33.4); MEAN CORPUSCULAR HGB CONC 33.9 g/dL (32.0-36.0); PLATELET COUNT 100 10^3/uL (150-450); RED BLOOD COUNT 2.15 10^6/uL (4.35-5.55); RED CELL DISTRIBUTION WIDTH 15.3 % (11.5-14.0); WHITE BLOOD COUNT 7.9 10^3/uL (4.0-10.5)
[2020-04-21] MEDS: PANTOPRAZOLE SODIUM 40 MG TABLET.DR PO SCH (05:59)
[2020-04-21] MEDS: ACETAMINOPHEN 325 MG TABLET PO SCH ×2 (05:59→14:19)
[2020-04-21 06:09] LABS: MEAN CORPUSCULAR VOLUME 111 fl (80-97)
[2020-04-21] MEDS: OXYCODONE HCL IR 5 MG TABLET PO PRN (08:36)
[2020-04-21] MEDS: SERTRALINE HCL 50 MG TABLET PO SCH (09:06)
[2020-04-21] MEDS: METOPROLOL SUCCINATE 50 MG TAB.SR.24H PO SCH (09:06)
[2020-04-21] MEDS: ASPIRIN 325 MG TABLET, ENT COATED PO SCH (09:06)
[2020-04-21 12:40] LABS: PATH REVIEW PATHOLOGIST REVIEWED
--- NOTE | 2020-04-21 13:38 | PDOC TRANSFER SUMMARY ---
Impression - Admit/DC Date/PCP Admission Date/Primary Care Provider: 04/18/20 03:47 SYED LOBATO MD Discharge Date: 04/21/20 - Discharge Diagnosis (1) Atrial fibrillation Is this a current diagnosis for this admission?: Yes (2) COPD (chronic obstructive pulmonary disease) Is this a current diagnosis for this admission?: Yes (3) Closed intertrochanteric fracture of left hip Is this a current diagnosis for this admission?: Yes (4) Fall Is this a current diagnosis for this admission?: Yes (5) Hyperglycemia due to type 2 diabetes mellitus Is this a current diagnosis for this admission?: Yes (6) Hyperlipidemia Is this a current diagnosis for this admission?: Yes - Assessment Summary: Mr. TOMI BOX is an 80 year old man with COPD, HTN, HLD, DM2, atrial fibrillation, gout who presented on 04/17/2020 with fall. He states that he got up to go to the bathroom, had a mechanical fall, and hit his left side. He had no LOC. He suffered a mildly displaced and comminuted left intertrochanteric femur fracture. He is already being seen at the wound care clinic for a right lateral malleolus wound that he reports sustaining when he hit his ankle on a piece of furniture in the bedroom. He has a history of very thin skin with easy bruising. Closed left hip intertrochanteric fracture s/p open reduction internal fixation with nail by Dr. Stiles. He will need daily PT/OT. Fall precautions advised. Outpatient follow up with Dr. Stiles (orthopedic surgery) in 2 weeks. Longstanding persistent atrial fibrillation: his home atenolol was switched to metoprolol, with excellent subsequent rate control. He is not on anticoagulation due to history of frequent falls. Continue daily high dose ASA therapy. History of hypertension: he has had normal BP while inpatient, so his home BP medications have been discontinued, except for metoprolol. Code Status: DNR/DNI - Additional Information Resuscitation Status: Do Not Resuscitate Discharge Diet: Diabetic Discharge Activity: Activity As Tolerated, Walk Frequently Referrals: SERAFIN STALLWORTH NP, PRINT PRESS OPERATOR [NURSE PRACTITIONER] - Follow up as needed ESTHER STILES MD [ACTIVE STAFF] - (WITHIN TWO WEEKS) Home Medications: Allopurinol [Zyloprim 100 mg Tablet] 100 mg PO BID 05/08/11 Cetirizine HCl [Zyrtec 10 mg Tablet] 10 mg PO DAILY 10/23/15 Ferrous Sulfate [Feosol 325 mg Tablet] 325 mg PO DAILY 01/23/19 Multivitamin [Tab-A-Treasure (Multiple Vitamin) Tablet] 1 tab PO DAILY 01/23/19 Sitagliptin Phosphate [Januvia 50 mg Tablet] 50 mg PO DAILY 01/23/19 Calcium Carbonate/Vitamin D3 [Oyster Shell 500-Vit D3 200 Tb] 1 each PO DAILY 04/18/20 Indomethacin [Indocin 50 mg Capsule] 50 mg PO TID 04/18/20 Lidocaine [Lidoderm 5% (700 mg) Transdermal Patch] 1 patch TP DAILY 04/18/20 Meclizine HCl [Antivert 25 mg Tablet] 12.5 mg PO TIDP PRN 04/18/20 Meloxicam [Mobic] 15 mg PO DAILY 04/18/20 Oxycodone HCl [Oxycontin] 15 mg PO BIDP PRN 04/18/20 Sertraline HCl [Zoloft 50 mg Tablet] 50 mg PO DAILY 04/18/20 Simvastatin 20 mg PO DAILY 04/18/20 Tamsulosin HCl [Flomax] 0.4 mg PO DAILY 04/18/20 Acetaminophen [Tylenol 325 mg Tablet] 975 mg PO Q8 tablet 04/21/20 Aspirin [Ecotrin 325 mg EC Tablet] 325 mg PO DAILY tabec 04/21/20 Metoprolol Succinate [Toprol Xl 50 mg Tab.sr] 150 mg PO DAILY tab.sr.24h 04/21/20 Oxycodone HCl [Oxy-Ir 5 mg Tablet] 5 mg PO Q6HP PRN tablet 04/21/20 History of Present Illiness History of Present Illness: TOMI BOX is a 80 year old male Physical Exam Vital Signs: Temp Pulse Resp BP Pulse Ox 98.2 F 72 12 118/58 L 93 04/21/20 10:00 04/21/20 08:00 04/21/20 08:00 04/21/20 08:00 04/21/20 08:00 Intake & Output 04/20/20 04/21/20 04/22/20 06:59 06:59 06:59 Intake Total 0 380 Output Total 200 275 250 Balance -200 -275 130 Weight 108.1 kg 107.9 kg Results Laboratory Results: WBC 7.9 10^3/uL (4.0-10.5) 04/21/20 04:38 RBC 2.15 10^6/uL (4.35-5.55) L 04/21/20 04:38 Hgb 8.1 g/dL (13.5-17.0) L 04/21/20 04:38 Hct 23.8 % (37.9-51.0) L 04/21/20 04:38 MCV 111 fl (80-97) H 04/21/20 04:38 MCH 37.6 pg (27.0-33.4) H 04/21/20 04:38 MCHC 33.9 g/dL (32.0-36.0) 04/21/20 04:38 RDW 15.3 % (11.5-14.0) H 04/21/20 04:38 Plt Count 100 10^3/uL (150-450) L 04/21/20 04:38 Lymph % (Auto) 14.1 % (13-45) 04/20/20 05:37 [place] % (Auto) 6.7 % (3-13) 04/20/20 05:37 Eos % (Auto) 3.2 % (0-6) 04/20/20 05:37 Baso % (Auto) 0.7 % (0-2) 04/20/20 05:37 Absolute Neuts (auto) 6.5 10^3/uL (1.7-8.2) 04/20/20 05:37 Absolute Lymphs (auto) 1.2 10^3/uL (0.5-4.7) 04/20/20 05:37 Absolute Monos (auto) 0.6 10^3/uL (0.1-1.4) 04/20/20 05:37 Absolute Eos (auto) 0.3 10^3/uL (0.0-0.6) 04/20/20 05:37 Absolute Basos (auto) 0.1 10^3/uL (0.0-0.2) 04/20/20 05:37 Seg Neutrophils % 75.3 % (42-78) 04/20/20 05:37 PT 14.7 SEC (11.4-15.4) 04/18/20 05:06 INR 1.13 04/18/20 05:06 APTT 29.4 SEC (23.5-35.8) 04/18/20 05:06 Sodium 136.3 mmol/L (137-145) L 04/19/20 05:32 Potassium 4.6 mmol/L (3.6-5.0) 04/19/20 05:32 Chloride 101 mmol/L (98-107) 04/19/20 05:32 Carbon Dioxide 28 mmol/L (22-30) 04/19/20 05:32 Anion Gap 7 (5-19) 04/19/20 05:32 BUN 15 mg/dL (7-20) 04/19/20 05:32 Creatinine 0.95 mg/dL (0.52-1.25) 04/19/20 05:32 Est GFR ( Amer) > 60 (>60) 04/19/20 05:32 Est GFR (MDRD) Non-Af > 60 (>60) 04/19/20 05:32 Glucose 136 mg/dL (75-110) H 04/19/20 05:32 POC Glucose 142 mg/dL (70-110) H 04/20/20 21:18 Calcium 8.5 mg/dL (8.4-10.2) 04/19/20 05:32 Magnesium 2.1 mg/dL (1.6-2.3) 04/19/20 05:32 Total Bilirubin 0.5 mg/dL (0.2-1.3) 04/17/20 23:07 Direct Bilirubin 0.5 mg/dL (0.0-0.4) H 04/17/20 23:07 Neonat Total Bilirubin Not Reportable 04/17/20 23:07 Neonat Direct Bilirubin Not Reportable 04/17/20 23:07 Neonat Indirect Bili Not Reportable 04/17/20 23:07 AST 38 U/L (17-59) 04/17/20 23:07 ALT 23 U/L (<50) 04/17/20 23:07 Alkaline Phosphatase 116 U/L (38-126) 04/17/20 23:07 Troponin I < 0.012 ng/mL 04/17/20 23:07 Total Protein 6.7 g/dL (6.3-8.2) 04/17/20 23:07 Albumin 3.9 g/dL (3.5-5.0) 04/17/20 23:07 TSH 1.36 uIU/mL (0.47-4.68) 04/17/20 23:07 COVID-19 Source See comment 04/19/20 00:20 COVID-19 (CARLO) Not Detected (Not Detect) 04/19/20 00:20 Slides for Path Review PATHOLOGIST REVIEWED 04/21/20 04:38 04/17/20 23:07 Troponin I < 0.012 Impressions: Hip X-Ray 04/17/20 23:02 IMPRESSION: 1. Acute left femoral intertrochanteric fracture. 2. No acute fracture of the left knee. Knee X-Ray 04/17/20 23:02 IMPRESSION: 1. Acute left femoral intertrochanteric fracture. 2. No acute fracture of the left knee. Fluoroscopy 04/18/20 00:00 IMPRESSION: Intraprocedural fluoroscopy was provided. No images were stored in the PACS system. Please Correlate with the procedure report. Hip X-Ray 04/18/20 00:00 IMPRESSION: Fluoroscopic guidance was utilized for open reduction and internal fixation of a left hip intertrochanteric fracture. copyright 2010 [employer]- All Rights Reserved Chest X-Ray 04/18/20 00:07 IMPRESSION: No acute cardiopulmonary abnormality copyright 2010 [employer]- All Rights Reserved Stroke Is this a Stroke Patient?: No Acute Heart Failure Is this a Heart Failure Patient?: No
[2020-04-21] MEDS ORDERED: ONDANSETRON HCL INJ/PF 4 MG/2 ML SDV IV PRN (14:00)
[2020-04-21] MEDS: MORPHINE SULFATE 10 MG/ML INJ IV PRN (15:08)
[2020-04-21 18:16] VITALS: BP 106/50
== END 2020-04-21 16:38 | DRG 982 ==
LOC: ER 22:46 → EH 04-18 03:47 → 4W 04-18 08:26 → 4N 04-20 05:21
PROVIDERS: ADMIT Hospitalist; ATTEND Hospitalist
PROC: 0QS706Z Reposition Left Upper Femur with Intramedullary Internal Fixation Device, Open Approach (ICD-10-PCS; principal; 2020-04-18 15:15)
PROC: 3E02340 Introduction of Influenza Vaccine into Muscle, Percutaneous Approach (ICD-10-PCS; 2020-04-20)
DX: S40.812A Abrasion of left upper arm, initial encounter (principal); I48.11 Longstanding persistent atrial fibrillation; F32.9 Major depressive disorder, single episode, unspecified; E78.5 Hyperlipidemia, unspecified; M10.9 Gout, unspecified; E11.65 Type 2 diabetes mellitus with hyperglycemia; M54.30 Sciatica, unspecified side; J44.9 Chronic obstructive pulmonary disease, unspecified; W18.30XA Fall on same level, unspecified, initial encounter; Z87.891 Personal history of nicotine dependence; Z83.3 Family history of diabetes mellitus; Z79.82 Long term (current) use of aspirin; Z79.84 Long term (current) use of oral hypoglycemic drugs; Z79.899 Other long term (current) drug therapy; Z90.49 Acquired absence of other specified parts of digestive tract; Y92.009 Unspecified place in unspecified non-institutional (private) residence as the place of occurrence of the external cause; S90.512D Abrasion, left ankle, subsequent encounter; W22.03XD Walked into furniture, subsequent encounter; Z23 Encounter for immunization; Z20.828 Contact with and (suspected) exposure to other viral communicable diseases; Z66 Do not resuscitate; Z79.1 Long term (current) use of non-steroidal anti-inflammatories (NSAID)
CPT/HCPCS: 01230; 36415; 71045; 80048; 80053; 82962; 83735; 84443; 84484; 85025; 85027; 85610; 85730; 87635; 90471; 90686; 93005; 93010; 96374; 96375; 99285; C1713; C1769; C9803; G0008; J0330; J0690; J1100; J1170; J1815; J1885; J2250; J2270; J2405; J2704; J3010; J3475; J3490; J7060; J7120

== ENCOUNTER 2020-05-02 12:52 | Emergency (ER) | payer MEDICARE, OTHER ==
--- NOTE | 2020-05-02 13:23 | ER Document Report ---
ED Medical Screen (RME) - General TRAVEL OUTSIDE OF THE [place] IN LAST 30 DAYS: No <DARIN FELIPE - Last Filed: 05/02/20 13:21> <ROSA MONDRAGON - Last Filed: 05/02/20 14:57> - General Chief Complaint: Abdominal Pain Stated Complaint: ABDOMINAL PAIN Time Seen by Provider: 05/02/20 13:15 Primary Care Provider: SUMAN FERRARA MD [Primary Care Provider] - Follow up as needed Notes: Patient presents from [facility] with generalized abdominal pain for the past 5 days. Patient recently status post ORIF of the hip. Patient had had some constipation symptoms and was given 2 enemas. Patient did have blood noted in his stool. Patient with a history of diabetes, hypertension, A. fib and dyslipidemia. I have greeted and performed a rapid initial assessment of this patient. A comprehensive ED assessment and evaluation of the patient, analysis of test results and completion of the medical decision making process will be conducted by additional ED providers. (DARIN FELIPE) - Related Data Allergies/Adverse Reactions: No Known Drug Allergies Allergy (Verified 10/17/19 11:24) Past Medical History - Past Medical History Cardiac Medical History: Reports: Hx Atrial Fibrillation, Hx Hypercholestero lemia, Hx Hypertension - meds x 20 yrs Denies: Hx Coronary Artery Disease, Hx Heart Attack Pulmonary Medical History: Reports: Hx COPD - see cxr, Hx Pneumonia - 2010 Denies: Hx Asthma, Hx Bronchitis Neurological Medical History: Denies: Hx Cerebrovascular Accident, Hx Seizures Endocrine Medical History: Reports: Hx Diabetes Mellitus Type 2 Renal/ Medical History: Denies: Hx End Stage Renal Disease, Hx Peritoneal Dialysis GI Medical History: Denies: Hx Cirrhosis, Hx Diverticulitis, Hx Hiatal Hernia Musculoskeltal Medical History: 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,gout Skin Medical History: Reports Hx Cellulitis Psychiatric Medical History: Reports: Hx Depression Denies: Hx Bipolar Disorder Past Surgical History: Reports: Hx Appendectomy, Hx Cholecystectomy - Immunizations Hx Diphtheria, Pertussis, Tetanus Vaccination: Yes <DARIN FELIPE - Last Filed: 05/02/20 13:21> Physical Exam - Abdominal Tenderness: Tender - Generalized abdominal tenderness <DARIN FELIPE - Last Filed: 05/02/20 13:21> - Vital signs Vitals: Resp BP Pulse Ox 20 151/80 H 96 05/02/20 13:01 05/02/20 13:01 05/02/20 13:01 Course - Laboratory Result Diagrams: 05/02/20 13:13 05/02/20 13:13 <ROSA MONDRAGON - Last Filed: 05/02/20 14:57> - Vital Signs Vital signs: Temp Pulse Resp BP Pulse Ox 98.1 F 20 151/80 H 96 05/02/20 13:18 05/02/20 13:01 05/02/20 13:01 05/02/20 13:01 - Laboratory Laboratory results interpreted by me: 05/02/20 05/02/20 13:13 13:13 WBC 11.7 H RBC 3.14 L Hgb 11.2 L Hct 33.8 L MCV 108 H MCH 35.8 H RDW 16.2 H Lymph % (Auto) 8.8 L Absolute Neuts (auto) 9.7 H Seg Neutrophils % 82.7 H Potassium 5.2 H Glucose 119 H Direct Bilirubin 0.5 H Alkaline Phosphatase 204 H Doctor's Discharge <DARIN FELIPE - Last Filed: 05/02/20 13:21> <ROSA MONDRAGON - Last Filed: 05/02/20 14:57> - Discharge Referrals: SUMAN FERRARA MD [Primary Care Provider] - Follow up as needed
[2020-05-02 13:32] LABS: ABSOLUTE BASOPHILS # (AUTO) 0.1 10^3/uL (0.0-0.2); ABSOLUTE EOSINOPHILS # (AUTO) 0.1 10^3/uL (0.0-0.6); ABSOLUTE MONOCYTES (AUTO) 0.9 10^3/uL (0.1-1.4); ABSOLUTE NEUT (AUTO) 9.7 10^3/uL (1.7-8.2); BASOPHILS % (AUTO) 0.4 % (0-2); EOSINOPHILS % (AUTO) 0.8 % (0-6); HEMATOCRIT 33.8 % (37.9-51.0); HEMOGLOBIN 11.2 g/dL (13.5-17.0); LYMPHOCYTES % (AUTO) 8.8 % (13-45); MEAN CORPUSCULAR HEMOGLOBIN 35.8 pg (27.0-33.4); MEAN CORPUSCULAR HGB CONC 33.2 g/dL (32.0-36.0); MEAN CORPUSCULAR VOLUME 108 fl (80-97); MONOCYTES % (AUTO) 7.3 % (3-13); PLATELET COUNT 331 10^3/uL (150-450); RED BLOOD COUNT 3.14 10^6/uL (4.35-5.55); RED CELL DISTRIBUTION WIDTH 16.2 % (11.5-14.0); SEGMENTED NEUTROPHILS % (AUTO) 82.7 % (42-78); TOTAL CELLS COUNTED % (AUTO) 100 %; WHITE BLOOD COUNT 11.7 10^3/uL (4.0-10.5)
[2020-05-02 13:36] LABS: INTERNATIONAL RATION (INR) 1.16
[2020-05-02 13:37] LABS: PARTIAL THROMBOPLASTIN TIME 29.8 SEC (23.5-35.8)
[2020-05-02 13:56] LABS: ALBUMIN 3.7 g/dL (3.5-5.0); ALKALINE PHOSPHATASE 204 U/L (38-126); ANION GAP 7 (5-19); ASPARTATE AMINO TRANSFERASE 38 U/L (17-59); BILIRUBIN,DIRECT 0.5 mg/dL (0.0-0.4); BILIRUBIN,TOTAL 0.9 mg/dL (0.2-1.3); BLOOD UREA NITROGEN 17 mg/dL (7-20); CALCIUM 9.5 mg/dL (8.4-10.2); CARBON DIOXIDE 27 mmol/L (22-30); CHLORIDE 104 mmol/L (98-107); GLUCOSE 119 mg/dL (75-110); POTASSIUM 5.2 mmol/L (3.6-5.0); TOTAL PROTEIN 6.5 g/dL (6.3-8.2)
--- NOTE | 2020-05-02 14:06 | RADIOLOGY REPORT (SQ) ---
EXAM DESCRIPTION: ABDOMEN 2 VIEWS IMAGES COMPLETED DATE/TIME: 05/02/2020 1:57 pm REASON FOR STUDY: abd pain COMPARISON: None. NUMBER OF VIEWS: Two views. TECHNIQUE: Supine and erect/decubitus radiographic images of the abdomen acquired. LIMITATIONS: None. FINDINGS: FREE AIR: None. No abnormal gas collections. LUNG BASES: Clear. BOWEL GAS PATTERN: Nonobstructive pattern. No dilated loops or air fluid levels. CALCIFICATIONS: No suspicious calcifications. SOFT TISSUES: No gross mass or suggestion of organomegaly. HARDWARE: Surgical clips in the right upper quadrant consistent with prior cholecystectomy. BONES: Degenerative changes in the spine. Postsurgical changes in the left hip. OTHER: No other significant finding. IMPRESSION: NO RADIOGRAPHIC EVIDENCE FOR ACUTE ABDOMINAL DISEASE. TECHNICAL DOCUMENTATION: JOB ID: [id number] 2010 [employer]- All Rights Reserved Reading location - IP/workstation name: [email or web address]
--- NOTE | 2020-05-02 15:18 | ER Document Report ---
ED GI/ - General Chief Complaint: Abdominal Pain Stated Complaint: ABDOMINAL PAIN Time Seen by Provider: 05/02/20 13:15 Primary Care Provider: SUMAN FERRARA MD [NO LOCAL MD] - Follow up as needed Mode of Arrival: Ambulatory Information source: Patient Notes: This 80-year-old male presents to the emergency department with a complaint of abdominal pain has been ongoing for the past week. He states that this is his second ER visit for abdominal discomfort. He denies nausea and vomiting or fever and chills. Patient has degenerative disease of the right hip and abdominal pain which has been ongoing x1 week. Patient states he has been on chronic pain meds with oxycodone for 2 years. He has now gone a week without any pain medication. TRAVEL OUTSIDE OF THE [place] IN LAST 30 DAYS: No - Related Data Allergies/Adverse Reactions: No Known Drug Allergies Allergy (Verified 10/17/19 11:24) Past Medical History - Social History Smoking Status: Former Smoker Family History: DM, Malignancy, Other - Gout - Past Medical History Cardiac Medical History: Reports: Hx Atrial Fibrillation, Hx Hypercholesterolemia, Hx Hypertension - meds x 20 yrs Denies: Hx Coronary Artery Disease, Hx Heart Attack Pulmonary Medical History: Reports: Hx COPD - see cxr, Hx Pneumonia - 2010 Denies: Hx Asthma, Hx Bronchitis Neurological Medical History: Denies: Hx Cerebrovascular Accident, Hx Seizures Endocrine Medical History: Reports: Hx Diabetes Mellitus Type 2 Renal/ Medical History: Denies: Hx End Stage Renal Disease, Hx Peritoneal Dialysis GI Medical History: Denies: Hx Cirrhosis, Hx Diverticulitis, Hx Hiatal Hernia Musculoskeletal Medical History: 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,gout Skin Medical History: Reports Hx Cellulitis Psychiatric Medical History: Reports: Hx Depression Denies: Hx Bipolar Disorder Past Surgical History: Reports: Hx Appendectomy, Hx Cholecystectomy, Hx Orthopedic Surgery - hip - Immunizations Hx Diphtheria, Pertussis, Tetanus Vaccination: Yes Hx Pneumococcal Vaccination: 07/11/10 Review of Systems - Review of Systems Notes: Constitutional: Negative for fever. HENT: Negative for sore throat. Eyes: Negative for visual changes. Cardiovascular: Negative for chest pain. Respiratory: Negative for shortness of breath. Gastrointestinal: + Abdominal pain Genitourinary: Negative for dysuria. Musculoskeletal: Negative for back pain. Skin: Negative for rash. Neurological: Negative for headaches, weakness or numbness. 10 point ROS negative except as marked above and in HPI. Physical Exam - Vital signs Vitals: Resp BP Pulse Ox 20 151/80 H 96 05/02/20 13:01 05/02/20 13:01 05/02/20 13:01 - Notes Notes: PHYSICAL EXAMINATION: Physical Exam: General: Chronically ill-appearing 80-year-old man in mild distress secondary to abdominal pain. HEENT: NC/AT, pupils equal round and reactive to light, MM moist,nares clear, oropharynx clear, airway patent Neck: supple, no adenopathy, no masses. Good range of motion Lungs: clear, no wheezing, no rales no rhonchi CVS: Regular rate and rhythm no murmur gallop or rub Abdomen: Soft, active, and undescended periumbilical region, no guarding, no rebound, no masses no masses, no hepatosplenomegaly Ext: No edema, clubbing or cyanosis. Neuro: Alert and responsive, moving all 4 extremities on command, cranial nerves intact, no focal findings Skin: Intact no open lesions, no rash PSYCH: Normal mood, normal affect. Course - Re-evaluation Re-evalutation: 05/02/20 15:01 Patient presenting with ongoing abdominal pain for the past week. White count is 11.7 and he has been getting enemas on 2 occasions with the thought that his symptoms may be related to constipation. After some review and discussion with the patient a CT of the abdomen and pelvis is being ordered to take a closer look at the intra-abdominal system. - Vital Signs Vital signs: Temp Pulse Resp BP Pulse Ox 98.1 F 22 H 129/63 H 94 05/02/20 13:18 05/02/20 20:01 05/02/20 20:01 05/02/20 20:01 - Laboratory Result Diagrams: 05/02/20 13:13 05/02/20 13:13 Laboratory results interpreted by me: 05/02/20 05/02/20 05/02/20 13:13 13:13 18:20 WBC 11.7 H RBC 3.14 L Hgb 11.2 L Hct 33.8 L MCV 108 H MCH 35.8 H RDW 16.2 H Lymph % (Auto) 8.8 L Absolute Neuts (auto) 9.7 H Seg Neutrophils % 82.7 H Potassium 5.2 H Glucose 119 H Direct Bilirubin 0.5 H Alkaline Phosphatase 204 H Urine Ketones TRACE H - Diagnostic Test Radiology reviewed: Image reviewed, Reports reviewed Radiology results interpreted by me: 05/02/20 17:56 Abdomen X-Ray 05/02/20 13:21 IMPRESSION: NO RADIOGRAPHIC EVIDENCE FOR ACUTE ABDOMINAL DISEASE. Abdomen/Pelvis CT 05/02/20 15:04 IMPRESSION: Thickening of the pyloric channel and proximal and mid duodenum with mild surrounding edema. Findings are consistent with distal gastritis and duodenitis. No free air or focal fluid collections. Small fluid collection just superior to the left greater trochanter. This measures approximately 3.2 cm in diameter. Hounsfield units measure just under 10. Most likely simple fluid collection. Discharge - Discharge Clinical Impression: Gastritis and duodenitis Abdominal pain Qualifiers: Abdominal location: unspecified location Qualified Code(s): R10.9 - Unspecified abdominal pain Condition: Good Disposition: HOME, SELF-CARE Instructions: Abdominal Pain ([facility]) Additional Instructions: You were seen in the emergency department tonight with abdominal pain which apparently is gastritis and duodenitis. You are given prescriptions for medications to use for treatment of the symptoms. You are being given a prescription for pain medications. HOME CARE INSTRUCTIONS & INFORMATION: Thank you for choosing us for your medical needs. We hope you're satisfied with the care you received. After you leave, you must properly care for your problem and, at the same time, observe its progress. Any condition can change. Some illnesses can change rapidly over hours or days. If your condition worsens, return to the Emergency Department or see your physician promptly. ABOUT YOUR X-RAYS AND EKG'S: If you had an EKG or X-rays taken, they have been read by the Emergency Physician. The X-rays and EKG's will also be read by a Radiologist or Hadoop Developer within 24 hours. If discrepancies are noted, you will be notified by telephone. Please be certain the ED has a correct telephone number & address where you can be reached. Also, realize that some fractures or abnormalities do not show up on initial X-rays. If your symptoms continue, see your physician. ABOUT YOUR LABORATORY TEST: If you had laboratory tests, the results have been reviewed by the Emergency Physician. Some test results (for example cultures) may not be available for several days. You will be contacted if any test result shows you need additional treatment. Please be certain the ED has a correct telephone number and address where you can be reached. ABOUT YOUR MEDICATIONS: You will receive instructions on how to take your medicine on the prescription label you receive. Additional information may be provided by the Pharmacy. If you have questions afterwards, call the ED for clarification or further instructions. Some prescribed medications may cause drowsiness. Do not perform tasks such as driving a car or operating machinery without consulting your Pharmacist. If you feel you need a refill of pain medication, your condition will need re-evaluation. Please do not call for a refill of any medication. ABOUT YOUR SIGNATURE: Signature of this document acknowledges to followin. Understanding that you received emergency treatment and that you may be released before al medical problems are known or treated. Please be certain the ED has a correct phone number & address where you can be reached. 2. Acknowledgement that you will arrange for follow-up care as recommended. 3. Authorization for the Emergency Physician to provide information to your follow-up Physician in order to maximize your care. AT ANY TIME, IF YOUR SYMPTOMS CHANGE SIGNIFICANTLY OR WORSEN OR YOU DEVELOP NEW SYMPTOMS, RETURN TO THE EMERGENCY DEPARTMENT IMMEDIATELY FOR RE-EVALUATION. OUR GOAL IS TO PROVIDE EXCELLENT MEDICAL CARE! WE HOPE THAT WE HAVE MET YOUR EXPECTATIONS DURING YOUR EMERGENCY DEPARTMENT VISIT AND THAT YOU FEEL YOU HAVE RECEIVED EXCELLENT CARE! Prescriptions: Omeprazole 40 mg PO DAILY #30 capsule. Referrals: SUMAN FERRARA MD [NO LOCAL MD] - Follow up as needed
[2020-05-02] MEDS ORDERED: ASPIRIN 325 MG TABLET PO ONE (16:09)
--- NOTE | 2020-05-02 16:30 | RADIOLOGY REPORT (SQ) ---
EXAM DESCRIPTION: CT ABD/PELVIS WITH IV ONLY IMAGES COMPLETED DATE/TIME: 05/02/2020 3:57 pm REASON FOR STUDY: diffuse abdominal pain COMPARISON: None. TECHNIQUE: CT scan of the abdomen and pelvis performed using helical scanning technique with dynamic intravenous contrast injection. No oral contrast. Images reviewed with lung, soft tissue, and bone windows. Reconstructed coronal and sagittal MPR images reviewed. Delayed images for evaluation of the urinary system also acquired. All images stored on PACS. All CT scanners at this facility use dose modulation, iterative reconstruction, and/or weight based d osing when appropriate to reduce radiation dose to as low as reasonably achievable (ALARA). [facility]: Dose Right [facility]: CareDose [facility]: Dose Right [facility]: Teradose 4D [facility]: [employer] CONTRAST TYPE AND DOSE: contrast/concentration: Isovue 350.00 mmol/ml; Total Contrast Delivered: 100 .0 ml; Total Saline Delivered: 71.9 ml RENAL FUNCTION: BUN 13, creatinine 0.7 RADIATION DOSE: CT Rad equipment meets quality standard of care and radiation dose reduction techniq ues were employed. CTDIvol: 17.7 - 20.5 mGy. DLP: 1883 mGy-cm.. LIMITATIONS: None. FINDINGS: LOWER CHEST: No significant findings. No nodules or infiltrates. LIVER: Normal size. No masses. No dilated ducts. SPLEEN: Normal size. No focal lesions. PANCREAS: No masses. No significant calcifications. No adjacent inflammation or peripancreatic fluid collections. Pancreatic duct not dilated. GALLBLADDER: Surgically absent. ADRENAL GLANDS: No significant masses or asymmetry. RIGHT KIDNEY AND URETER: No solid masses. No significant calcifications. No hydronephrosis or hyd roureter. LEFT KIDNEY AND URETER: 4 cm left renal cyst. No significant calcifications. No hydronephrosis or hydroureter. AORTA AND VESSELS: No aneurysm. No dissection. Renal arteries, SMA, celiac without stenosis. RETROPERITONEUM: No retroperitoneal adenopathy, hemorrhage or masses. BOWEL AND PERITONEAL CAVITY: Thickening of the pyloric channel and proximal 2/3 of the duodenum. Fin dings are consistent with distal gastritis and duodenitis. No evidence of bowel obstruction. Remain josey of the GI tract is unremarkable. Scattered colonic diverticuli. APPENDIX: Surgically absent. PELVIS: No mass. No free fluid. Normal bladder. ABDOMINAL WALL: No masses. No hernias. BONES: Degenerative changes in the spine. Degenerative and postsurgical changes in the left hip ther e is a small fluid collection just superior to the greater trochanter of the left hip. This measures 3.2 cm in greatest diameter. Hounsfield units measure 10. OTHER: No other significant finding. IMPRESSION: Thickening of the pyloric channel and proximal and mid duodenum with mild surrounding ed ade. Findings are consistent with distal gastritis and duodenitis. No free air or focal fluid colle ctions. Small fluid collection just superior to the left greater trochanter. This measures approximately 3.2 cm in diameter. Hounsfield units measure just under 10. Most likely simple fluid collection. TECHNICAL DOCUMENTATION: JOB ID: [id number] Quality ID # [id number]: Final reports with documentation of one or more dose reduction techniques (e.g., Au tomated exposure control, adjustment of the mA and/or kV according to patient size, use of iterative reconstruction technique) 2010 [employer]- All Rights Reserved Reading location - IP/workstation name: [email or web address]
[2020-05-02] MEDS ORDERED: METHYLPREDNISOLONE INJ 125 MG/2 ML SDV IV ONE (17:57)
[2020-05-02] MEDS ORDERED: PANTOPRAZOLE SODIUM 40 MG VIAL IV ONE (17:57)
[2020-05-02] MEDS ORDERED: SUCRALFATE 1 GM TABLET PO ONE (17:58)
[2020-05-02] MEDS ORDERED: KETOROLAC TROMETHAMINE INJ/PF 30 MG/1 ML SDV IV ONE (17:58)
[2020-05-02 19:17] LABS: APPEARANCE,URINE CLEAR; BILIRUBIN,URINE NEGATIVE (NEGATIVE); COLOR,URINE YELLOW; GLUCOSE, URINE NEGATIVE (NEGATIVE); KETONES,URINE TRACE mg/dL (NEGATIVE); LEUKOCYTE ESTERASE,URINE NEGATIVE (NEGATIVE); NITRITE,URINE NEGATIVE (NEGATIVE); PROTEIN,URINE NEGATIVE (NEGATIVE); URINE SPECIFIC GRAVITY 1.055; UROBILINOGEN,URINE NEGATIVE mg/dL (<2.0)
[2020-05-02] MEDS ORDERED: HYDROMORPHONE HCL INJ/PF 2 MG/ML AMPULE IV ONE (19:19)
[2020-05-02] MEDS ORDERED: HYDROCODONE/ACETAMINOPHEN 5-325 MG (6 TAB/ER DISP) PO PRN (20:32)
[2020-05-02 23:45] VITALS: BP 140/90
== END 2020-05-02 22:15 | disposition home or self-care (01) ==
LOC: ER 12:52
DX: K29.70 Gastritis, unspecified, without bleeding (principal); K29.80 Duodenitis without bleeding; R10.9 Unspecified abdominal pain; M25.552 Pain in left hip; G89.29 Other chronic pain; Z79.899 Other long term (current) drug therapy; Z87.891 Personal history of nicotine dependence; I48.91 Unspecified atrial fibrillation; I10 Essential (primary) hypertension; J44.9 Chronic obstructive pulmonary disease, unspecified; E11.9 Type 2 diabetes mellitus without complications
CPT/HCPCS: 99285; 96374; 96375; 36415; 83690; 85025; 85610; 85730; 82270; 80053; 81001; 74019; 74177; J2930; J1885; J1170; C9113; A9270

== ENCOUNTER → 2020-06-23 | Outpatient (CLI) | payer MEDICARE, OTHER ==
[2020-06-23 12:46] VITALS: BP 165/77
--- NOTE | 2020-06-23 12:46 | ER RDC ASSESSMENT REPORT ---
Intake - In the Last 14 days Have you traveled outside [place]?: No Have you been in close contact with someone CONFIRMED: Yes Worked in Healthcare?: No - Symptoms Subjective Fever([place]can feverish): No Chills: No Muscule Aches: No Runny Nose: No Sore Throat: No Cough (New or worsening chronic cough): No Shortness of breath: No Nausea or Vomiting: No Headache: No Abdominal Pain: No Diarrhea(3 or more loose stools in last 24 hours): No - Do you have any of the following Chronic lung disease: Asthma or emphysema or COPD: No Cystic Fibrosis: No Diabetes: No High Blood Pressure: Yes Cardiovascular Disease: Yes Chronic Kidney Disease: No Chronic Liver Disease: No Chronic blood disorder like Sickle Cell Disease: No Weak immune system due to disease or medication: No Neurologic condition that limits movement: No Developmental delay - Moderate to Severe: No Recent (within past 2 weeks) or current : No Morbid Obesity (>100 pounds over ideal weight): No Obesity Comment: Height 6 feet 1 inches weight 215 pounds - Objective Temperature: 98.3 F Pulse Rate: 78 Respiratory Rate: 16 Blood Pressure: 165/77 O2 Sat by Pulse Oximetry: 92 Objective: Given above, testing performed: If Testing Performed: Test Specimen Type Sent to General - General Information source: Patient Notes: Patient here at [facility] for Covid testing patient denies any known positive exposure to Covid patient is traveling to [place] to move into an assisted living facility and needs a negative test in order to enter the facility. - Related Data Allergies/Adverse Reactions: No Known Drug Allergies Allergy (Verified 10/17/19 11:24) Past Medical History - General Information source: Patient - Social History Smoking Status: Never Smoker Family History: DM, Malignancy, Other - Gout - Past Medical History Cardiac Medical History: Reports: Hx Atrial Fibrillation, Hx Hypercholesterolemia, Hx Hypertension - meds x 20 yrs Denies: Hx Coronary Artery Disease, Hx Heart Attack Pulmonary Medical History: Reports: Hx COPD - see cxr, Hx Pneumonia - 2010 Denies: Hx Asthma, Hx Bronchitis Neurological Medical History: Denies: Hx Cerebrovascular Accident, Hx Seizures Endocrine Medical History: Reports: Hx Diabetes Mellitus Type 2 Renal/ Medical History: Denies: Hx End Stage Renal Disease, Hx Peritoneal Dialysis GI Medical History: Denies: Hx Cirrhosis, Hx Diverticulitis, Hx Hiatal Hernia Musculoskeletal Medical History: 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,gout Skin Medical History: Reports Hx Cellulitis Psychiatric Medical History: Reports: Hx Depression Denies: Hx Bipolar Disorder Past Surgical History: Reports: Hx Appendectomy, Hx Cholecystectomy, Hx Orthopedic Surgery - hip Physical Exam - General General appearance: Appears well, Alert In distress: None Notes: PHYSICAL EXAMINATION: GENERAL: Well-appearing and in no acute distress. HEAD: Atraumatic, normocephalic. EYES: sclera anicteric, conjunctiva are normal. ENT: nares patent. Moist mucous membranes. NECK: Normal range of motion, supple without lymphadenopathy LUNGS: CTAB and equal. No wheezes rales or rhonchi. Respirations even and unlabored lung sounds clear. HEART: Regular rate and rhythm without murmurs ABDOMEN: Soft, nontender, normal bowel sounds, no guarding. EXTREMITIES: Normal range of motion, no pitting edema. No cyanosis. NEUROLOGICAL: Cranial nerves grossly intact. Normal speech. Normal gait. PSYCH: Normal mood, normal affect. SKIN: Warm, Dry, normal turgor, no rashes or lesions noted Diagnostic Results Laboratory Results: Pending Covid testing results. Patient provided instructions regarding Covid to include: As a person under investigation for Covid 19, the [place] department of Health and Human Services, division of public health advises you to adhere to the following guidance until your test results are reported to you. If your test result is positive, you will receive additional information from your provider and your local health department at that time. Remain at home until you are cleared by the health provider or public health authorities. Keep a log of visitors to your home, notify any visitors to your home of your isolation status. If you plan to move to a new address or leave the [facility], notify the local health department in your County. Call your doctor or seek care if you have an urgent medical need. Before seeking medical care, call ahead to get instructions from the provider before arriving at the medical office clinic or hospital. Notify them that you are being tested for the virus that causes Covid 19 so that arrangements can be made, as necessary, to prevent transmission to others in the healthcare setting. Next, notify the local health department in your [facility]. If a medical emergency arises and you need to call 911, inform the first responders that you are being tested for the virus that causes Covid 19. Next, notify the local health department in your county. Patient Education/Counseling Counseling/Education: Patient presents with upper respiratory symptoms worrisome for possible Covid 19. Patient does not have emergency worring symptoms such as difficulty breathing, shortness of breath, chest pain, pressure, confusion or cyanosis. Patient appears suitable for discharge. Patient instructed to follow-up with PCP Dr. Monge as needed. Patient's vital signs are stable and patient is nontoxic in appearance. Good return precautions have been discussed with patient, patient verbalized understanding and is agreeable with discharge plan of care at this time. RDC Discharge - Discharge Clinical Impression: Encounter for screening laboratory testing for COVID-19 virus in asymptomatic patient Condition: Stable Disposition: Home; Selfcare
== END ==
LOC: RDC 11:39
PROVIDERS: ATTEND Nurse Practitioner Family
DX: Z20.828 Contact with and (suspected) exposure to other viral communicable diseases (principal); I10 Essential (primary) hypertension; I25.10 Atherosclerotic heart disease of native coronary artery without angina pectoris; E78.00 Pure hypercholesterolemia, unspecified; E11.9 Type 2 diabetes mellitus without complications; J44.9 Chronic obstructive pulmonary disease, unspecified
CPT/HCPCS: U0003; C9803; 87635; 99201; 99211